=== PATIENT | male | born 1930 | race African-American/Black ===

== ENCOUNTER 2016-09-26 17:48 | Emergency (ER) | payer MEDICARE ==
[~2016-09-26 17:48] MED LIST: ACET500T68 PO; ALLO100T PO; AMLO10TA2 PO; ASPI81TA2 PO; BALS60OI TP; BISA-42 PO; CARV25TA2 PO; CARV3.122 PO; CLON0.5T3 PO; CLON1PAT3 TD; CLON2TAB2 PO; CLOP75TA PO; CLOP75TA27 PO; DOCU100C5 PO; FOLI0.8T3 PO; HYDR-2666 PO; HYDR-2672 PO; INSU100V31 SQ; KETO15CR TP; LEVO500T38 PO; LORA10TA3 PO; OMEP20CA9 PO; SEVE800T9 PO; VITS56.7 TP
[2016-09-26] MEDS ORDERED: IV NORMAL SALINE 1000ML BAG 500 ML IV ONE (18:30)
[2016-09-26 19:13] LABS: BASO # 0.1 x10^3/uL (0.0-0.2); BASO % 1 % (0-3); EOS % 6 % (0-3); HEMATOCRIT 39.6 % (39.0-53.0); HEMOGLOBIN 12.6 g/dL (13.0-17.5); LYMPH # 2.7 x10^3/uL (1.0-4.8); LYMPH % 36 % (24-48); MEAN CORPUSCULAR HEMOGLOBIN 28 pg (25-35); MEAN CORPUSCULAR HGB CONC 32 g/dL (31-37); MEAN CORPUSCULAR VOLUME 89 fL (79-100); MONO % 12 % (0-9); NEUT % 46 % (31-73); PLATELET COUNT 188 x10^3/uL (140-400); RED BLOOD COUNT 4.44 x10^6/uL (4.30-5.70); RED CELL DISTRIBUTION WIDTH 15.1 % (11.5-14.5); WHITE BLOOD COUNT 7.4 x10^3/uL (4.0-11.0)
[2016-09-26 19:22] LABS: CALCIUM 10.1 mg/dL (8.5-10.1); CREATININE 5.3 mg/dL (0.7-1.3); GFR 12.6
[2016-09-26 19:25] LABS: POTASSIUM 4.4 mmol/L (3.5-5.1)
--- NOTE | 2016-09-26 21:18 | PHYS DOC ---
Past Medical History Past Medical History: CHF, COPD, Diabetes-Type II, Hypertension, Renal Disease , Renal Failure Additional Past Medical Histor: on dialysis Past Surgical History: Appendectomy Additional Past Surgical Histo: BILATERAL FOOT SURGERY, GALL STONE REMOVAL; dialysis catheter Alcohol Use: None Drug Use: None Adult General Chief Complaint Chief Complaint: OTHER COMPLAINTS HPI HPI This is a 86-year-old male presents by EMS for concern for rapid heart rate. Per a home health nurse at home his vital signs revealed that he had an elevated heart rate in the 200 range and the health nurse took a pulse that was elevated as well in the 180s. Upon arrival EMS states patient's heart rate was in the 60s and he was not having any symptoms whatsoever. Upon arrival the patient denies any specific complaints. He denies any chest pain or palpitations and denies any nausea or vomiting. Patient is a renal failure patient and receives hemodialysis 3 times a week and has been compliant with this and had his last treatment yesterday without any complication. He denies any fever or chills. He denies feeling ill. Review of Systems Review of Systems Constitutional: Denies fever or chills [] Eyes: Denies change in visual acuity, redness, or eye pain [] HENT: Denies nasal congestion or sore throat [] Respiratory: Denies cough or shortness of breath [] Cardiovascular: No additional information not addressed in HPI [] GI: Denies abdominal pain, nausea, vomiting, bloody stools or diarrhea [] : Denies dysuria or hematuria [] Musculoskeletal: Denies back pain or joint pain [] Integument: Denies rash or skin lesions [] Neurologic: Denies headache, focal weakness or sensory changes [] Endocrine: Denies polyuria or polydipsia [] Current Medications Current Medications Current Medications Medications (Trade) Dose Ordered Sig/Arlene Start Time Stop Time Status Last Admin Dose Admin Sodium Chloride (Iv Sodium Chloride 0.9% 1000ml Bag) 500 ml @ 250 mls/hr 1X ONCE 09/26/16 18:30 09/26/16 20:29 DC 09/26/16 18:53 250 MLS/HR Allergies Allergies Allergies Coded Allergies Type Severity Reaction Last Updated Verified Penicillins Allergy Intermediate 08/16/15 Yes amoxicillin Allergy Intermediate 08/16/15 Yes codeine Allergy Intermediate 07/25/16 Yes erythromycin base Allergy Intermediate 08/16/15 Yes sulfamethoxazole Allergy Intermediate 5/14/16 Yes trimethoprim Allergy Intermediate 01/20/16 Yes I S O L A T I O N *CONTACT* Allergy Unknown 06/25/16 Yes Physical Exam Physical Exam Constitutional: Well developed, well nourished, no acute distress, non-toxic appearance. [] HENT: Normocephalic, atraumatic, bilateral external ears normal, oropharynx moist, no oral exudates, nose normal. [] Eyes: PERRLA, EOMI, conjunctiva normal, no discharge. [] Neck: Normal range of motion, no tenderness, supple, no stridor. [] Cardiovascular:Heart rate regular rhythm, no murmur [] Lungs & Thorax: Bilateral breath sounds clear to auscultation [] Abdomen: Bowel sounds normal, soft, no tenderness, no masses, no pulsatile masses. [] Skin: Warm, dry, no erythema, no rash. [] Back: No tenderness, no CVA tenderness. [] Extremities: No tenderness, no cyanosis, no clubbing, ROM intact, no edema. [] Neurologic: Alert and oriented X 3, normal motor function, normal sensory function, no focal deficits noted. [] Psychologic: Affect normal, judgement normal, mood normal. [] Current Patient Data Vital Signs Vital Signs Date Time Temp Pulse Resp B/P Pulse Ox O2 Delivery O2 Flow Rate FiO2 09/26/16 19:00 104 10 97/52 100 Nasal Cannula 2 09/26/16 17:54 98.5 98.5 Lab Values Laboratory Tests Test 09/26/16 19:00 White Blood Count 7.4x10^3/uL (4.0-11.0) Red Blood Count 4.44x10^6/uL (4.30-5.70) Hemoglobin 12.6g/dL (13.0-17.5) L Hematocrit 39.6% (39.0-53.0) Mean Corpuscular Volume 89fL (79-100) Mean Corpuscular Hemoglobin 28pg (25-35) Mean Corpuscular Hemoglobin Concent 32g/dL (31-37) Red Cell Distribution Width 15.1% (11.5-14.5) H Platelet Count 188x10^3/uL (140-400) Neutrophils (%) (Auto) 46% (31-73) Lymphocytes (%) (Auto) 36% (24-48) Monocytes (%) (Auto) 12% (0-9) H Eosinophils (%) (Auto) 6% (0-3) H Basophils (%) (Auto) 1% (0-3) Neutrophils # (Auto) 3.4x10^3uL (1.8-7.7) Lymphocytes # (Auto) 2.7x10^3/uL (1.0-4.8) Monocytes # (Auto) 0.9x10^3/uL (0.0-1.1) Eosinophils # (Auto) 0.4x10^3/uL (0.0-0.7) Basophils # (Auto) 0.1x10^3/uL (0.0-0.2) Sodium Level 136mmol/L (136-145) Potassium Level 4.4mmol/L (3.5-5.1) Chloride Level 99mmol/L (98-107) Carbon Dioxide Level 22mmol/L (21-32) Anion Gap 15 (6-14) H Blood Urea Nitrogen 29mg/dL (8-26) H Creatinine 5.3mg/dL (0.7-1.3) H Estimated GFR (Cockcroft-Gault) 12.6 Glucose Level 179mg/dL (70-99) H Calcium Level 10.1mg/dL (8.5-10.1) Troponin I Quantitative 0.041ng/mL (0.000-0.055) Laboratory Tests 09/26/16 19:00 Laboratory Tests 09/26/16 19:00 EKG EKG First EKG obtained at 1807 reveals a normal sinus rhythm with a leftward axis and a rate of 69 bpm is an approximate rate. Intervals are normal. There are no acute ischemic findings. Repeat EKG taken at 192 reveals again a normal sinus rhythm with a rate of 59 bpm. Intervals are normal. There are no acute ST findings. Radiology/Procedures Radiology/Procedures [] Course & Med Decision Making Course & Med Decision Making Pertinent Labs and Imaging studies reviewed. (See chart for details) This 86 yo male had a work up that was essentially unrevealing for any acute abnormality other chronic renal disease for which he can take his dialysis tomorrow as scheduled. She was observed in the department for approximately 3 hours and had multiple EKGs done that did not demonstrate any acute abnormality. His chronic enzymes are also negative. Counseled the patient at length that he should obtain his dialysis in the morning as scheduled and to follow closely with his primary care doctor and to return if he develops any worsening chest pain or shortness of breath or feels that his heart rate is elevated. He was discharged without incident. The patient was borderline hypotensive on arrival but responded well to a small fluid bolus and upon discharge his vital signs were near normal with a heart rate that stayed consistently in the 60's and a blood pressure in the 120's systolic. Dragon Disclaimer Dragon Disclaimer This electronic medical record was generated, in whole or in part, using a voice recognition dictation system. Departure Departure Impression: Primary Impression: Rapid heart rate Disposition: 01 HOME, SELF-CARE Condition: STABLE Referrals: NO PCP (PCP) Patient Instructions: Palpitations, [id number] Additional Instructions: Please follow up with your primary doctor in the next 2-3 days. Obtain your dialysis treatment in the AM as normal. Return to the ER if you develop any worsening of your symptoms or you develop any chest pain, shortness of breath, or lightheadedness. RUBEN CASTILLO DO Sep 26, 2016 21:19
[2016-09-26 21:45] VITALS: BP 110/60
--- NOTE | 2016-09-27 06:33 | EKG ---
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
== END 2016-09-26 22:00 | disposition home or self-care (01) ==
LOC: ER 17:48
DX: R00.0 Tachycardia, unspecified (principal); J44.9 Chronic obstructive pulmonary disease, unspecified; E11.22 Type 2 diabetes mellitus with diabetic chronic kidney disease; I13.0 Hypertensive heart and chronic kidney disease with heart failure and stage 1 through stage 4 chronic kidney disease, or unspecified chronic kidney disease; N18.9 Chronic kidney disease, unspecified; I50.9 Heart failure, unspecified; Z99.2 Dependence on renal dialysis; Z90.49 Acquired absence of other specified parts of digestive tract; Z88.1 Allergy status to other antibiotic agents; Z88.5 Allergy status to narcotic agent; Z88.0 Allergy status to penicillin; Z91.041 Radiographic dye allergy status
CPT/HCPCS: 36415; 80048; 84484; 85027; 93005; 96360; 96361; 99285; J7030

== ENCOUNTER 2018-10-21 04:36 | Inpatient (IN) | payer MEDICARE, OTHER ==
[~2018-10-21] VITALS: Ht 172.7 cm; Wt 90.5 kg
[2018-10-21] VITALS (18 sets, daily range): BP systolic 116–187; BP diastolic 53–114
[~2018-10-21 04:36] MED LIST changes: -AMLO10TA2 PO; +AMLO10TA8 PO; +ASPI-630 PO; -ASPI81TA2 PO; +CAPS60CR2 TP; +CARV3.1210 PO; -CARV3.122 PO; +CARV6.2511 PO; +CLON0.5T11 PO; -CLON0.5T3 PO; -CLON2TAB2 PO; +CLON2TAB9 PO; -CLOP75TA27 PO; +CLOP75TA57 PO; +DOCU100C28 PO; -DOCU100C5 PO; -HYDR-2666 PO; -HYDR-2672 PO; +HYDR-2761 PO; +HYDR-2769 PO; -KETO15CR TP; +KETO15CR2 TP; -LEVO500T38 PO; +LEVO500T59 PO; +POLY17PO29 PO
--- NOTE | 2018-10-21 05:22 | PHYS DOC ---
Past Medical History Past Medical History: CHF, COPD, Diabetes-Type II, Hypertension, Renal Disease , Renal Failure Additional Past Medical Histor: on dialysis Past Surgical History: Appendectomy Additional Past Surgical Histo: BILATERAL FOOT SURGERY, GALL STONE REMOVAL; dialysis catheter Alcohol Use: None Drug Use: None Adult General Chief Complaint Chief Complaint: DYSPNEA/RESPIRATOY DISTRESS HPI HPI Patient is a 88 year old -Ira[place] male with history of end-stage renal disease currently on dialysis, COPD and CHF who presents with creased LOC, and nightly respiratory failure hypoxia per EMS. Reportedly, the patient was found unresponsive by family members 15 minutes prior to ED arrival. Patient was hypoxic with an O2 saturation 70s and coarse wheezes present throughout lung samano. Patient was placed on nonrebreather given a breathing treatment with O2 saturations improved to low 90s on ED arrival. Patient has more alert, localizes pain and is alert oriented to person and place. History is limited based upon the patient's clinical condition.[] Review of Systems Review of Systems View symptoms as prescribed. All other review symptoms are negative. All other systems were reviewed and found to be within normal limits, except as documented in this note. Allergies Allergies Allergies Coded Allergies Type Severity Reaction Last Updated Verified Penicillins Allergy Intermediate 08/16/15 Yes amoxicillin Allergy Intermediate 08/16/15 Yes codeine Allergy Intermediate 07/25/16 Yes erythromycin base Allergy Intermediate 08/16/15 Yes sulfamethoxazole Allergy Intermediate 01/20/16 Yes trimethoprim Allergy Intermediate 01/20/16 Yes I S O L A T I O N *CONTACT* Allergy Unknown 06/25/16 Yes Physical Exam Physical Exam Constitutional: Decreased LOC, increased work of breathing, coarse breath sounds bilaterally.[] HENT: Normocephalic, atraumatic, bilateral external ears normal, oropharynx moist, nose normal. [] Eyes: PERRLA, EOMI [] Neck: Normal range of motion, no tenderness, supple, JVD. [] Cardiovascular: Regular rate and rhythm.[] Lungs & Thorax: Worsening respiratory and expiratory wheezes throughout lung samano, hemasplit catheter, left chest wall[] Abdomen: Bowel sounds normal, soft, no tenderness. [] Skin: Warm, dry. [] Extremities: No tenderness, no cyanosis, no clubbing, ROM intact, no edema. [] Neurologic: Somnolent, alerts to verbal and tactile, oriented to person place. [ ] EKG EKG EKG: Reviewed] Radiology/Procedures Radiology/Procedures [CXR: Cardiomegaly, pulmonary vascular congestion.] Course & Med Decision Making Course & Med Decision Making Pertinent Labs and Imaging studies reviewed. (See chart for details) [Patient appears to be in acute congestive heart failure secondary COPD exacerbation with volume overload likely contributing to his symptoms. Patient resp status improved with correction of hypoxia. Placed on Bipap shortly after ED arrival. Will admit to the hospitalist service for further evaluation anticipated dialysis session.] Dragon Disclaimer Dragon Disclaimer This electronic medical record was generated, in whole or in part, using a voice recognition dictation system. Departure Departure Impression: Primary Impression: Altered mental status Additional Impressions: Respiratory failure Acute exacerbation of CHF (congestive heart failure) COPD exacerbation End stage kidney disease Disposition: ADMITTED INPATIENT Admitting Physician: Fortunato Cantu Condition: CRITICAL Referrals: UNKNOWN PCP NAME (PCP) Problem Qualifiers ALDEN LANDIN DO Oct 21, 2018 05:22
[2018-10-21 05:23] LABS: BASO # 0.1 x10^3/uL (0.0-0.2); BASO % 1 % (0-3); EOS # 0.6 x10^3/uL (0.0-0.7); EOS % 7 % (0-3); HEMATOCRIT 34.7 % (39.0-53.0); HEMOGLOBIN 10.3 g/dL (13.0-17.5); LYMPH # 3.3 x10^3/uL (1.0-4.8); LYMPH % 43 % (24-48); MEAN CORPUSCULAR HEMOGLOBIN 28 pg (25-35); MEAN CORPUSCULAR HGB CONC 30 g/dL (31-37); MEAN CORPUSCULAR VOLUME 94 fL (79-100); MONO # 0.9 x10^3/uL (0.0-1.1); MONO % 12 % (0-9); NEUT # 2.8 x10^3uL (1.8-7.7); NEUT % 36 % (31-73); PLATELET COUNT 241 x10^3/uL (140-400); RED BLOOD COUNT 3.71 x10^6/uL (4.30-5.70); RED CELL DISTRIBUTION WIDTH 18.6 % (11.5-14.5); WHITE BLOOD COUNT 7.7 x10^3/uL (4.0-11.0)
[2018-10-21 05:50] LABS: ALBUMIN/GLOBULIN RATIO 0.6 (1.0-1.7); CALCIUM 10.4 mg/dL (8.5-10.1); CREATININE 8.4 mg/dL (0.7-1.3); GFR 7.4; TOTAL BILIRUBIN 0.3 mg/dL (0.2-1.0); TOTAL PROTEIN 7.8 g/dL (6.4-8.2)
[2018-10-21] MEDS ORDERED: ONDANSETRON PF 4 MG/2 ML VIAL. IV PRN (06:15)
[2018-10-21] MEDS ORDERED: INSU100I13 SQ (07:58)
[2018-10-21] MEDS ORDERED: AMLO10TA8 PO (07:59)
--- NOTE | 2018-10-21 09:00 | NUR ---
IP: Pt has a hx of + mrsa screens since 2008 with most recent on . Pt to be in contact precautions unitl there are 2 negative screens 7 days apart.
--- NOTE | 2018-10-21 09:40 | NUR ---
SS following for discharge planning. SS reviewed pt chart. Pt is from home with spouse and currently requiring oxygen. No discharge needs noted at this time. SS will continue to follow for pending discharge needs.
--- NOTE | 2018-10-21 10:58 | RAD ---
Portable chest, 10/21/2018: HISTORY: Shortness of breath Comparison is made to a study from 07/24/2016. The multilumen left dialysis type catheter remains in place extending into the right atrium. The heart is enlarged. There is calcific plaquing of the aorta. The pulmonary vascularity is congested with loss of vascular margination. There is mild interstitial prominence. A moderate left chest opacity has developed obscuring the hemidiaphragm. The appearance suggests infiltrate and possible pleural fluid. No right-sided pleural fluid is seen. IMPRESSION: 1. Vascular congestion with probable parahilar-perivascular pulmonary edema. 2. New left basilar opacity compatible with infiltrate and pleural fluid. Electronically signed by: Sunil Paulson MD (10/21/2018 10:56 AM) [facility]
--- NOTE | 2018-10-21 11:55 | PDOC2 ---
CONSULT Date of Consult Date of Consult DATE: 10/21/18 TIME: 11:50 Reason for Consult Reason for Consult: ESRD Referring Physician Referring Physician: LOUISE Identification/Chief Complaint Chief Complaint SOB AND UNRESPONSIVE Source Source: Chart review History of Present Illness Reason for Visit: THIS IS AN 88 YR OLD ESRD PT WITH NON COMPLIANCE. HE HAS NOT BEEN HIS HD TX SINCE LAST WEEK. WAS FOUND DOWN AND IN RESP FAILURE. LABS C/W ESRD. ESRD DUE TO DM II AND HTN AND NOTED TO HAVE HYPERKALEMIA. IMAGING C/W CHF Past Medical History Cardiovascular: CHF, HTN, Hyperlipidemia Pulmonary: COPD GI: Constipation Heme/Onc: Anemia NOS Psych: No pertinent hx Rheumatologic: No pertinent hx Infectious disease: No pertinent hx, Other Renal/: Chronic renal failure Endocrine: Diabetes, Hyperparathyroidism Past Surgical History Past Surgical History: Appendectomy, Tonsillectomy, Other Family History Family History: Coronary Artery Disease, Hearing Loss Social History ALCOHOL: none Drugs: None Lives: with Family Current Problem List Problem List Problems Medical Problems: (1) Acute exacerbation of CHF (congestive heart failure) Status: Acute (2) Altered mental status Status: Acute (3) COPD exacerbation Status: Acute (4) End stage kidney disease Status: Acute (5) Respiratory failure Status: Acute Current Medications Current Medications Current Medications Ondansetron HCl (Zofran) 4 mg PRN Q8HRS PRN IV NAUSEA/VOMITING; Start 10/21/18 at 06:15; Stop 10/22/18 at 06:14 Active Scripts Active Carvedilol (Carvedilol) 6.25 Mg Tablet 6.25 Mg PO BIDWMEALS 30 Days Reported Amlodipine Besylate 10 Mg Tablet 10 Mg PO DAILY Lantus Solostar (Insulin Glargine,Hum.rec.anlog) 100 Unit/1 Ml Insuln.pen 12 Unit SQ QHS Miralax (Polyethylene Glycol 3350) 17 Gm Powd.pack 1 Pkt PO DAILY Novolog (Insulin Aspart) 100 Unit/1 Ml Vial 6 Unit SQ TIDWMEALS Capsaicin 60 Gm Cream..g. 60 Gm TP PRN BID PRN Acetaminophen 500 Mg Tablet 500 Mg PO PRN BID PRN Dulcolax (Bisacodyl) 5 Mg Tablet.dr 5 Mg PO PRN DAILY PRN Ketoconazole 15 Gm Cream..g. 1 Rohit TP BID Clonazepam 0.5 Mg Tablet 0.25 Mg PO PRN BID PRN Allopurinol 100 Mg Tablet 1 Tab PO DAILY Clonidine Tts-3 (Clonidine) 1 Each Patch.tdwk 1 Patch TD WEEKLY Docusate Sodium 100 Mg Capsule 2 Cap PO DAILY Nephro-Woody Tablet (Folic Acid/Vitamin B Comp W-C) 0.8 Mg Tablet 1 Tab PO DAILY Aspirin 81 Mg Tab.chew 1 Tab PO DAILY Omeprazole 20 Mg Capsule. 1 Cap PO BID Allergies Allergies: Coded Allergies: Penicillins (Verified Allergy, Intermediate, 08/16/15) amoxicillin (Verified Allergy, Intermediate, 08/16/15) codeine (Verified Allergy, Intermediate, 07/25/16) pt states he is able to tolerate this medication with his codeine allergy. erythromycin base (Verified Allergy, Intermediate, 08/16/15) sulfamethoxazole (Verified Allergy, Intermediate, 01/20/16) trimethoprim (Verified Allergy, Intermediate, 01/20/16) I S O L A T I O N *CONTACT* (Verified Allergy, Unknown, 06/25/16) mrsa ROS Review of System UNABLE TO OBTAIN Physical Exam General: Cooperative, mild distress HEENT: Atraumatic, PERRLA, EOMI, Mucous membr. moist/pink Lungs: Other (DECREASED AT BASES) Heart: Regular rate, Normal S1, Normal S2 Abdomen: Normal bowel sounds, Soft Extremities: No clubbing, No cyanosis, Other (2+ EDEMA) Neuro: Other (CONFUSED) Psych/Mental Status: Other (CONFUSED) MUSCULOSKELETAL: No joint tenderness, No deformity Vitals VITALS Vital Signs Date Time Temp Pulse Resp B/P (MAP) Pulse Ox O2 Delivery O2 Flow Rate FiO2 10/21/18 11:00 68 11 177/89 (118) 100 BiPAP/CPAP 10/21/18 08:00 98.0 98.0 10/21/18 04:38 15.0 Labs Labs Laboratory Tests Test 10/21/18 05:02 10/21/18 09:28 White Blood Count 7.7 x10^3/uL (4.0-11.0) Red Blood Count 3.71 x10^6/uL (4.30-5.70) Hemoglobin 10.3 g/dL (13.0-17.5) Hematocrit 34.7 % (39.0-53.0) Mean Corpuscular Volume 94 fL (79-100) Mean Corpuscular Hemoglobin 28 pg (25-35) Mean Corpuscular Hemoglobin Concent 30 g/dL (31-37) Red Cell Distribution Width 18.6 % (11.5-14.5) Platelet Count 241 x10^3/uL (140-400) Neutrophils (%) (Auto) 36 % (31-73) Lymphocytes (%) (Auto) 43 % (24-48) Monocytes (%) (Auto) 12 % (0-9) Eosinophils (%) (Auto) 7 % (0-3) Basophils (%) (Auto) 1 % (0-3) Neutrophils # (Auto) 2.8 x10^3uL (1.8-7.7) Lymphocytes # (Auto) 3.3 x10^3/uL (1.0-4.8) Monocytes # (Auto) 0.9 x10^3/uL (0.0-1.1) Eosinophils # (Auto) 0.6 x10^3/uL (0.0-0.7) Basophils # (Auto) 0.1 x10^3/uL (0.0-0.2) Sodium Level 139 mmol/L (136-145) Potassium Level 6.0 mmol/L (3.5-5.1) Chloride Level 103 mmol/L (98-107) Carbon Dioxide Level 19 mmol/L (21-32) Anion Gap 17 (6-14) Blood Urea Nitrogen 64 mg/dL (8-26) Creatinine 8.4 mg/dL (0.7-1.3) Estimated GFR (Cockcroft-Gault) 7.4 BUN/Creatinine Ratio 8 (6-20) Glucose Level 177 mg/dL (70-99) Calcium Level 10.4 mg/dL (8.5-10.1) Total Bilirubin 0.3 mg/dL (0.2-1.0) Aspartate Amino Transf (AST/SGOT) 14 U/L (15-37) Alanine Aminotransferase (ALT/SGPT) 13 U/L (16-63) Alkaline Phosphatase 80 U/L (46-116) Troponin I Quantitative 0.090 ng/mL (0.000-0.055) 0.088 ng/mL (0.000-0.055) YV-Fox-K-Type Natriuretic Peptide 65834 pg/mL (0-449) Total Protein 7.8 g/dL (6.4-8.2) Albumin 3.0 g/dL (3.4-5.0) Albumin/Globulin Ratio 0.6 (1.0-1.7) Laboratory Tests Test 10/21/18 05:02 10/21/18 09:28 White Blood Count 7.7 x10^3/uL (4.0-11.0) Red Blood Count 3.71 x10^6/uL (4.30-5.70) Hemoglobin 10.3 g/dL (13.0-17.5) Hematocrit 34.7 % (39.0-53.0) Mean Corpuscular Volume 94 fL (79-100) Mean Corpuscular Hemoglobin 28 pg (25-35) Mean Corpuscular Hemoglobin Concent 30 g/dL (31-37) Red Cell Distribution Width 18.6 % (11.5-14.5) Platelet Count 241 x10^3/uL (140-400) Neutrophils (%) (Auto) 36 % (31-73) Lymphocytes (%) (Auto) 43 % (24-48) Monocytes (%) (Auto) 12 % (0-9) Eosinophils (%) (Auto) 7 % (0-3) Basophils (%) (Auto) 1 % (0-3) Neutrophils # (Auto) 2.8 x10^3uL (1.8-7.7) Lymphocytes # (Auto) 3.3 x10^3/uL (1.0-4.8) Monocytes # (Auto) 0.9 x10^3/uL (0.0-1.1) Eosinophils # (Auto) 0.6 x10^3/uL (0.0-0.7) Basophils # (Auto) 0.1 x10^3/uL (0.0-0.2) Sodium Level 139 mmol/L (136-145) Potassium Level 6.0 mmol/L (3.5-5.1) Chloride Level 103 mmol/L (98-107) Carbon Dioxide Level 19 mmol/L (21-32) Anion Gap 17 (6-14) Blood Urea Nitrogen 64 mg/dL (8-26) Creatinine 8.4 mg/dL (0.7-1.3) Estimated GFR (Cockcroft-Gault) 7.4 BUN/Creatinine Ratio 8 (6-20) Glucose Level 177 mg/dL (70-99) Calcium Level 10.4 mg/dL (8.5-10.1) Total Bilirubin 0.3 mg/dL (0.2-1.0) Aspartate Amino Transf (AST/SGOT) 14 U/L (15-37) Alanine Aminotransferase (ALT/SGPT) 13 U/L (16-63) Alkaline Phosphatase 80 U/L (46-116) Troponin I Quantitative 0.090 ng/mL (0.000-0.055) 0.088 ng/mL (0.000-0.055) UK-Cfo-M-Type Natriuretic Peptide 44607 pg/mL (0-449) Total Protein 7.8 g/dL (6.4-8.2) Albumin 3.0 g/dL (3.4-5.0) Albumin/Globulin Ratio 0.6 (1.0-1.7) Assessment/Plan Assessment/Plan IMP ACUTE ON CHRONIC D CHF ANEMIA NON COMPLIANCE DM II HTN ESRD MET ENCEPHALOPATHY PLAN BIPAP/O2 HD TODAY UF TO [facility]ONG ENC COMPLIANCE UPDATED FAMILY SHIVAM SMILEY MD Oct 21, 2018 11:55
[2018-10-21] MEDS ORDERED: DIALYSIS PATIENT. MC PRN ×2 (12:15)
[2018-10-21] MEDS ORDERED: IV NORMAL SALINE 1000ML BAG 1,000 ML IV PRN ×2 (12:15)
[2018-10-21] MEDS ORDERED: ALBUMIN HUMAN 25% 200 ML IV PRN (12:15)
[2018-10-21] MEDS ORDERED: BISACODYL 5 MG TABLET.DR. PO PRN (14:00)
[2018-10-21] MEDS ORDERED: CAPSAICIN 0.025% TOPICAL CREAM 60GM TUBE. TP PRN (14:00)
[2018-10-21] MEDS ORDERED: clonazePAM 0.5 MG TABLET PO PRN (14:00)
[2018-10-21] MEDS ORDERED: ACETAMINOPHEN 500 MG TABLET PO PRN (14:15)
--- NOTE | 2018-10-21 14:24 | HP ---
ADMIT DATE: 10/21/2018 CHIEF COMPLAINT: Shortness of breath and found down. HISTORY OF PRESENT ILLNESS: The patient is a pleasant 88-year-old male, well known to our service. He is noncompliant with his dialysis. He has not got dialysis for the past week. He was found down and in respiratory failure. He was brought to the ER where he was noted to have hyperkalemia and accelerated hypertension. Describes his symptoms as agonizing, has been worsening over the past few days. I have discussed the case with the ER physician. We are going to admit the patient and consult Nephrology and get him dialyzed. PAST MEDICAL HISTORY: Noncompliance, CHF, end-stage renal disease, COPD, hypertension, hyperlipidemia, foot surgeries bilaterally, cholecystectomy, dialysis catheter. ALLERGIES: PENICILLIN, AMOXICILLIN, CODEINE, ERYTHROMYCIN, SULFA AND TRIMETHOPRIM. FAMILY HISTORY: Hypertension. SOCIAL HISTORY: He does not drink, smoke or take drugs. MEDICATIONS: Reviewed. He is on 16 including clonidine, Coreg, amlodipine, aspirin, Tylenol, clonazepam, docusate, MiraLax, Prilosec, insulin, capsaicin, vitamins and ketaconazole. REVIEW OF SYSTEMS: GENERAL: No history of weight change, weakness or fevers. SKIN: No bruising, hair changes or rashes. EYES: No blurred, double or loss of vision. NOSE AND THROAT: No history of nosebleeds, hoarseness or sore throat. HEART: No history of palpitations, chest pain or shortness of breath on exertion. LUNGS: He complains of shortness of breath. GASTROINTESTINAL: Denies changes in appetite, nausea, vomiting, diarrhea or constipation. GENITOURINARY: No history of frequency, urgency, hesitancy or nocturia. NEUROLOGIC: Denies history of numbness, tingling, tremor or weakness. PSYCHIATRIC: No history of panic, anxiety or depression. ENDOCRINE: No history of heat or cold intolerance, polyuria or polydipsia. EXTREMITIES: Denies muscle weakness, joint pain, pain on walking or stiffness. PHYSICAL EXAMINATION: VITAL SIGNS: Temperature afebrile, pulse 98, respirations 18, blood pressure 160/78, it was as high as 186/114. GENERAL: He is alert, cooperative. He was seen on dialysis in his ICU bed on BiPAP. HEART: Normal S1, S2 with a soft S3. LUNGS: Bibasilar crackles. ABDOMEN: Soft, positive bowel sounds. EXTREMITIES: 1+ edema. SKIN: No rashes. PSYCHIATRIC: He is little depressed. ENDOCRINE: No thyromegaly. LYMPHATICS: No cervical nodes. HEMATOPOIETIC: No bruising. LABORATORY DATA: White count 7, hemoglobin 10.3, platelets 241. Electrolytes are pending. Creatinine is 8, BUN is 64. Troponin 0.09. BNP 27,161. ASSESSMENT AND PLAN: Volume overload secondary to noncompliance with dialysis, hyperkalemia, accelerated hypertension, anemia. The patient has been admitted to the ICU. We have got him on BiPAP. We have consulted Nephrology. We will continue dialysis, probably daily until we get him stabilized and then back to his every other day schedule. Frequent labs, home meds, PT, OT. I discussed the case with his family and the nurse. PROGNOSIS: Long-term guarded, especially if he does not quit missing dialysis. MONO WELLS DO DR: LEORA/chiquita JOB#: [id number] / [id number]
[2018-10-21] MEDS ORDERED: INSULIN LISPRO 300 UNITS/3 ML INSULN.PEN. SQ SCH (14:30)
[2018-10-21] MEDS: PANTOPRAZOLE 40 MG TABLET.DR. PO SCH (14:30)
[2018-10-21] MEDS: DOCUSATE SODIUM 100 MG CAPSULE. PO SCH (14:30)
[2018-10-21] MEDS: POLYETHYLENE GLYCOL 3350 17 GM PACKET. PO SCH (14:30)
[2018-10-21] MEDS: ALLOPURINOL 100 MG TABLET. PO SCH (14:30)
[2018-10-21] MEDS: amLODIPine BESYLATE 10 MG TABLET PO SCH (14:30)
[2018-10-21] MEDS: ASPIRIN CHEWABLE 81 MG TABLET. PO SCH (14:30)
[2018-10-21] MEDS: FOLIC/VIT B COMP W-C (RENAL) TABLET. PO SCH (14:30)
--- NOTE | 2018-10-21 14:31 | EKG ---
[facility] [address] [place] [address] Test Date: 2018-10-21 Test Time: 05:18:11 Pat Name: ADRIENNE PHILLIPS Department: Room: Gender: M [employer] Man: : 1930 Requested By: ALDEN LANDIN Order Number: [id number] Reading MD: Measurements Intervals [place] Rate: P: SC: QRS: QRSD: T: QT: QTc: Interpretive Statements
[2018-10-21] MEDS ORDERED: DEXTROSE 50% 25 GM / 50ML DISP.SYRIN. IV PRN (15:00)
[2018-10-21] MEDS: INSULIN LISPRO 300 UNITS/3 ML INSULN.PEN. SQ SCH (17:00)
[2018-10-21] MEDS: CARVEDILOL 6.25 MG TABLET. PO SCH (18:10)
[2018-10-21] MEDS ORDERED: DARBEPOETIN ALFA 60 MCG/0.3 ML DISP.SYRIN. SQ SCH (21:00)
[2018-10-21] MEDS: INSULIN GLARGINE 300 UNITS/3 ML INSULN.PEN. SQ SCH (21:00)
[2018-10-21] MEDS: KETOCONAZOLE 2% TOPICAL CREAM 15GM TUBE. TP SCH (21:00)
--- NOTE | 2018-10-21 23:35 | NUR ---
Patients SBP staying 160's, Clonidine patch ordered to start 10/28 but patient does not have a patch on now. Paged Dr Justice, notified of BP and plan to start Clonidine patch now--Dr Justice agreed to start Clonidine tonight and order received for Hydralazine 10MG IVP [id number] for SBP>170. See vital signs, orders.
[2018-10-21] MEDS ORDERED: hydrALAZINE 20 MG/ML VIAL. IVP PRN (23:45)
[2018-10-22] VITALS (14 sets, daily range): BP systolic 101–176; BP diastolic 39–98
[2018-10-22] MEDS ORDERED: cloNIDine TTS-3 1 PATCH PATCH.TDWK TD SCH
[2018-10-22 06:01] LABS: BASO % 1 % (0-3); EOS # 0.2 x10^3/uL (0.0-0.7); EOS % 6 % (0-3); HEMATOCRIT 33.5 % (39.0-53.0); HEMOGLOBIN 10.1 g/dL (13.0-17.5); LYMPH # 1.2 x10^3/uL (1.0-4.8); LYMPH % 31 % (24-48); MEAN CORPUSCULAR HEMOGLOBIN 28 pg (25-35); MEAN CORPUSCULAR HGB CONC 30 g/dL (31-37); MEAN CORPUSCULAR VOLUME 92 fL (79-100); MONO # 0.7 x10^3/uL (0.0-1.1); MONO % 18 % (0-9); NEUT # 1.7 x10^3uL (1.8-7.7); NEUT % 45 % (31-73); PLATELET COUNT 191 x10^3/uL (140-400); RED BLOOD COUNT 3.66 x10^6/uL (4.30-5.70); RED CELL DISTRIBUTION WIDTH 18.1 % (11.5-14.5); WHITE BLOOD COUNT 3.9 x10^3/uL (4.0-11.0)
[2018-10-22 06:13] LABS: ALBUMIN 2.7 g/dL (3.4-5.0); ALBUMIN/GLOBULIN RATIO 0.5 (1.0-1.7); CALCIUM 9.7 mg/dL (8.5-10.1); CREATININE 5.4 mg/dL (0.7-1.3); GFR 12.2; POTASSIUM 4.1 mmol/L (3.5-5.1); TOTAL BILIRUBIN 0.5 mg/dL (0.2-1.0); TOTAL PROTEIN 7.7 g/dL (6.4-8.2)
[2018-10-22 07:23] LABS: % ATYL 1 % (0-0); % BANDS 2 % (0-9); % BASOS 1 % (0-3); % EOS 11 % (0-5); % LYMPHS 25 % (24-48); % MONOS 19 % (0-10); % SEGS 41 % (35-66)
[2018-10-22 07:24] LABS: PLT ESTIMATE ADEQUATE (ADEQUATE)
[2018-10-22] MEDS: PANTOPRAZOLE 40 MG TABLET.DR. PO SCH (07:30)
[2018-10-22] MEDS: INSULIN LISPRO 300 UNITS/3 ML INSULN.PEN. SQ SCH ×3 (08:00→17:00)
[2018-10-22] MEDS: DOCUSATE SODIUM 100 MG CAPSULE. PO SCH (08:04)
[2018-10-22] MEDS: POLYETHYLENE GLYCOL 3350 17 GM PACKET. PO SCH (08:04)
[2018-10-22] MEDS: ASPIRIN CHEWABLE 81 MG TABLET. PO SCH (08:25)
[2018-10-22] MEDS: ALLOPURINOL 100 MG TABLET. PO SCH (08:25)
[2018-10-22] MEDS: FOLIC/VIT B COMP W-C (RENAL) TABLET. PO SCH (08:25)
[2018-10-22] MEDS: CARVEDILOL 6.25 MG TABLET. PO SCH ×2 (08:26→18:14)
[2018-10-22] MEDS: amLODIPine BESYLATE 10 MG TABLET PO SCH (08:26)
[2018-10-22] MEDS: KETOCONAZOLE 2% TOPICAL CREAM 15GM TUBE. TP SCH ×2 (08:26→21:05)
--- NOTE | 2018-10-22 10:09 | PDOC ---
PROGRESS NOTES Chief Complaint Chief Complaint CC: SOA, found down Acute respiratory failure, hypoxia ESRD on dialysis CHF COPD HTN HLD Noncompliance History of Present Illness History of Present Illness Pt is an 85 y/o male who presented to the ED with SOA and was found down. Significant PMHx or ESRD on dialysis, CHF, COPD, HTN. Apparently he missed dialysis last week. Today he was seen and examined in the ICU. His family was present. There is still some confusion. He was resting and in NAD. His family is worried about his cough and wheezing. I discussed the pt with his RN. Vitals Vitals Vital Signs Date Time Temp Pulse Resp B/P (MAP) Pulse Ox O2 Delivery O2 Flow Rate FiO2 10/22/18 09:00 81 18 176/84 (114) 96 Nasal Cannula 2.0 10/22/18 08:00 97.7 97.7 Physical Exam General: Cooperative, No acute distress Heart: Regular rate, Normal S1, Normal S2 Lungs: Wheezing (Mild wheezing and rhonchi), Other Abdomen: Normal bowel sounds, Soft, No tenderness Extremities: No clubbing, No cyanosis, Other (2+ EDEMA) Labs LABS Laboratory Tests Test 10/21/18 12:45 10/21/18 13:00 10/21/18 18:08 10/21/18 21:18 Troponin I Quantitative 0.139 ng/mL (0.000-0.055) Glucose (Fingerstick) 119 mg/dL (70-99) 96 mg/dL (70-99) 89 mg/dL (70-99) Test 10/22/18 05:30 White Blood Count 3.9 x10^3/uL (4.0-11.0) Red Blood Count 3.66 x10^6/uL (4.30-5.70) Hemoglobin 10.1 g/dL (13.0-17.5) Hematocrit 33.5 % (39.0-53.0) Mean Corpuscular Volume 92 fL (79-100) Mean Corpuscular Hemoglobin 28 pg (25-35) Mean Corpuscular Hemoglobin Concent 30 g/dL (31-37) Red Cell Distribution Width 18.1 % (11.5-14.5) Platelet Count 191 x10^3/uL (140-400) Neutrophils (%) (Auto) 45 % (31-73) Lymphocytes (%) (Auto) 31 % (24-48) Monocytes (%) (Auto) 18 % (0-9) Eosinophils (%) (Auto) 6 % (0-3) Basophils (%) (Auto) 1 % (0-3) Neutrophils # (Auto) 1.7 x10^3uL (1.8-7.7) Lymphocytes # (Auto) 1.2 x10^3/uL (1.0-4.8) Monocytes # (Auto) 0.7 x10^3/uL (0.0-1.1) Eosinophils # (Auto) 0.2 x10^3/uL (0.0-0.7) Basophils # (Auto) 0.0 x10^3/uL (0.0-0.2) Segmented Neutrophils % 41 % (35-66) Band Neutrophils % 2 % (0-9) Lymphocytes % 25 % (24-48) Atypical Lymphocytes % (Manual) 1 % (0-0) Monocytes % 19 % (0-10) Eosinophils % 11 % (0-5) Basophils % 1 % (0-3) Platelet Estimate Adequate (ADEQUATE) Large Platelets Occ Sodium Level 137 mmol/L (136-145) Potassium Level 4.1 mmol/L (3.5-5.1) Chloride Level 99 mmol/L (98-107) Carbon Dioxide Level 25 mmol/L (21-32) Anion Gap 13 (6-14) Blood Urea Nitrogen 36 mg/dL (8-26) Creatinine 5.4 mg/dL (0.7-1.3) Estimated GFR (Cockcroft-Gault) 12.2 BUN/Creatinine Ratio 7 (6-20) Glucose Level 81 mg/dL (70-99) Calcium Level 9.7 mg/dL (8.5-10.1) Total Bilirubin 0.5 mg/dL (0.2-1.0) Aspartate Amino Transf (AST/SGOT) 15 U/L (15-37) Alanine Aminotransferase (ALT/SGPT) 7 U/L (16-63) Alkaline Phosphatase 64 U/L (46-116) Total Protein 7.7 g/dL (6.4-8.2) Albumin 2.7 g/dL (3.4-5.0) Albumin/Globulin Ratio 0.5 (1.0-1.7) Review of Systems Review of Systems Gen: denies fever, chills Heart: denies CP, palpitations Lung: complains of SOA, cough, wheezing GI: denies N/V/D Assessment and Plan Assessmemt and Plan Assessment CC: SOA, found down Acute respiratory failure, hypoxia Acute exacerbation of CHF AMS ESRD on dialysis COPD HTN HLD Noncompliance Plan IV levaquin 250 QOD BiPAP and O2 HD Follow daily labs PT/OT Home meds Appreciate subspecialist input Comment Review of Relevant I have reviewed the following items genoveva (where applicable) has been applied. Labs Laboratory Tests Test 10/21/18 05:02 10/21/18 07:00 10/21/18 09:28 10/21/18 12:45 White Blood Count 7.7 x10^3/uL (4.0-11.0) Red Blood Count 3.71 x10^6/uL (4.30-5.70) Hemoglobin 10.3 g/dL (13.0-17.5) Hematocrit 34.7 % (39.0-53.0) Mean Corpuscular Volume 94 fL (79-100) Mean Corpuscular Hemoglobin 28 pg (25-35) Mean Corpuscular Hemoglobin Concent 30 g/dL (31-37) Red Cell Distribution Width 18.6 % (11.5-14.5) Platelet Count 241 x10^3/uL (140-400) Neutrophils (%) (Auto) 36 % (31-73) Lymphocytes (%) (Auto) 43 % (24-48) Monocytes (%) (Auto) 12 % (0-9) Eosinophils (%) (Auto) 7 % (0-3) Basophils (%) (Auto) 1 % (0-3) Neutrophils # (Auto) 2.8 x10^3uL (1.8-7.7) Lymphocytes # (Auto) 3.3 x10^3/uL (1.0-4.8) Monocytes # (Auto) 0.9 x10^3/uL (0.0-1.1) Eosinophils # (Auto) 0.6 x10^3/uL (0.0-0.7) Basophils # (Auto) 0.1 x10^3/uL (0.0-0.2) Sodium Level 139 mmol/L (136-145) Potassium Level 6.0 mmol/L (3.5-5.1) Chloride Level 103 mmol/L (98-107) Carbon Dioxide Level 19 mmol/L (21-32) Anion Gap 17 (6-14) Blood Urea Nitrogen 64 mg/dL (8-26) Creatinine 8.4 mg/dL (0.7-1.3) Estimated GFR (Cockcroft-Gault) 7.4 BUN/Creatinine Ratio 8 (6-20) Glucose Level 177 mg/dL (70-99) Calcium Level 10.4 mg/dL (8.5-10.1) Total Bilirubin 0.3 mg/dL (0.2-1.0) Aspartate Amino Transf (AST/SGOT) 14 U/L (15-37) Alanine Aminotransferase (ALT/SGPT) 13 U/L (16-63) Alkaline Phosphatase 80 U/L (46-116) Troponin I Quantitative 0.090 ng/mL (0.000-0.055) 0.088 ng/mL (0.000-0.055) 0.139 ng/mL (0.000-0.055) VN-Ioi-K-Type Natriuretic Peptide 41679 pg/mL (0-449) Total Protein 7.8 g/dL (6.4-8.2) Albumin 3.0 g/dL (3.4-5.0) Albumin/Globulin Ratio 0.6 (1.0-1.7) Nasal Screen MRSA (PCR) Negative (Negative) Test 10/21/18 13:00 10/21/18 18:08 10/21/18 21:18 10/22/18 05:30 Glucose (Fingerstick) 119 mg/dL (70-99) 96 mg/dL (70-99) 89 mg/dL (70-99) White Blood Count 3.9 x10^3/uL (4.0-11.0) Red Blood Count 3.66 x10^6/uL (4.30-5.70) Hemoglobin 10.1 g/dL (13.0-17.5) Hematocrit 33.5 % (39.0-53.0) Mean Corpuscular Volume 92 fL (79-100) Mean Corpuscular Hemoglobin 28 pg (25-35) Mean Corpuscular Hemoglobin Concent 30 g/dL (31-37) Red Cell Distribution Width 18.1 % (11.5-14.5) Platelet Count 191 x10^3/uL (140-400) Neutrophils (%) (Auto) 45 % (31-73) Lymphocytes (%) (Auto) 31 % (24-48) Monocytes (%) (Auto) 18 % (0-9) Eosinophils (%) (Auto) 6 % (0-3) Basophils (%) (Auto) 1 % (0-3) Neutrophils # (Auto) 1.7 x10^3uL (1.8-7.7) Lymphocytes # (Auto) 1.2 x10^3/uL (1.0-4.8) Monocytes # (Auto) 0.7 x10^3/uL (0.0-1.1) Eosinophils # (Auto) 0.2 x10^3/uL (0.0-0.7) Basophils # (Auto) 0.0 x10^3/uL (0.0-0.2) Segmented Neutrophils % 41 % (35-66) Band Neutrophils % 2 % (0-9) Lymphocytes % 25 % (24-48) Atypical Lymphocytes % (Manual) 1 % (0-0) Monocytes % 19 % (0-10) Eosinophils % 11 % (0-5) Basophils % 1 % (0-3) Platelet Estimate Adequate (ADEQUATE) Large Platelets Occ Sodium Level 137 mmol/L (136-145) Potassium Level 4.1 mmol/L (3.5-5.1) Chloride Level 99 mmol/L (98-107) Carbon Dioxide Level 25 mmol/L (21-32) Anion Gap 13 (6-14) Blood Urea Nitrogen 36 mg/dL (8-26) Creatinine 5.4 mg/dL (0.7-1.3) Estimated GFR (Cockcroft-Gault) 12.2 BUN/Creatinine Ratio 7 (6-20) Glucose Level 81 mg/dL (70-99) Calcium Level 9.7 mg/dL (8.5-10.1) Total Bilirubin 0.5 mg/dL (0.2-1.0) Aspartate Amino Transf (AST/SGOT) 15 U/L (15-37) Alanine Aminotransferase (ALT/SGPT) 7 U/L (16-63) Alkaline Phosphatase 64 U/L (46-116) Total Protein 7.7 g/dL (6.4-8.2) Albumin 2.7 g/dL (3.4-5.0) Albumin/Globulin Ratio 0.5 (1.0-1.7) Laboratory Tests Test 10/21/18 12:45 10/21/18 13:00 10/21/18 18:08 10/21/18 21:18 Troponin I Quantitative 0.139 ng/mL (0.000-0.055) Glucose (Fingerstick) 119 mg/dL (70-99) 96 mg/dL (70-99) 89 mg/dL (70-99) Test 10/22/18 05:30 White Blood Count 3.9 x10^3/uL (4.0-11.0) Red Blood Count 3.66 x10^6/uL (4.30-5.70) Hemoglobin 10.1 g/dL (13.0-17.5) Hematocrit 33.5 % (39.0-53.0) Mean Corpuscular Volume 92 fL (79-100) Mean Corpuscular Hemoglobin 28 pg (25-35) Mean Corpuscular Hemoglobin Concent 30 g/dL (31-37) Red Cell Distribution Width 18.1 % (11.5-14.5) Platelet Count 191 x10^3/uL (140-400) Neutrophils (%) (Auto) 45 % (31-73) Lymphocytes (%) (Auto) 31 % (24-48) Monocytes (%) (Auto) 18 % (0-9) Eosinophils (%) (Auto) 6 % (0-3) Basophils (%) (Auto) 1 % (0-3) Neutrophils # (Auto) 1.7 x10^3uL (1.8-7.7) Lymphocytes # (Auto) 1.2 x10^3/uL (1.0-4.8) Monocytes # (Auto) 0.7 x10^3/uL (0.0-1.1) Eosinophils # (Auto) 0.2 x10^3/uL (0.0-0.7) Basophils # (Auto) 0.0 x10^3/uL (0.0-0.2) Segmented Neutrophils % 41 % (35-66) Band Neutrophils % 2 % (0-9) Lymphocytes % 25 % (24-48) Atypical Lymphocytes % (Manual) 1 % (0-0) Monocytes % 19 % (0-10) Eosinophils % 11 % (0-5) Basophils % 1 % (0-3) Platelet Estimate Adequate (ADEQUATE) Large Platelets Occ Sodium Level 137 mmol/L (136-145) Potassium Level 4.1 mmol/L (3.5-5.1) Chloride Level 99 mmol/L (98-107) Carbon Dioxide Level 25 mmol/L (21-32) Anion Gap 13 (6-14) Blood Urea Nitrogen 36 mg/dL (8-26) Creatinine 5.4 mg/dL (0.7-1.3) Estimated GFR (Cockcroft-Gault) 12.2 BUN/Creatinine Ratio 7 (6-20) Glucose Level 81 mg/dL (70-99) Calcium Level 9.7 mg/dL (8.5-10.1) Total Bilirubin 0.5 mg/dL (0.2-1.0) Aspartate Amino Transf (AST/SGOT) 15 U/L (15-37) Alanine Aminotransferase (ALT/SGPT) 7 U/L (16-63) Alkaline Phosphatase 64 U/L (46-116) Total Protein 7.7 g/dL (6.4-8.2) Albumin 2.7 g/dL (3.4-5.0) Albumin/Globulin Ratio 0.5 (1.0-1.7) Microbiology 10/21/18 Blood Culture - Preliminary, Resulted NO GROWTH AFTER 1 DAY Medications Current Medications Ondansetron HCl (Zofran) 4 mg PRN Q8HRS PRN IV NAUSEA/VOMITING; Start 10/21/18 at 06:15; Stop 10/22/18 at 06:14; Status DC Darbepoetin Jatinedr (Aranesp) 60 mcg WEEKLYHS SQ Last administered on 10/21/18at 21 :12; Start 10/21/18 at 21:00 Sodium Chloride 1,000 ml @ 1,000 mls/hr Q1H PRN IV hypotension; Start 10/21/18 at 12:15; Stop 10/21/18 at 18:14; Status DC Albumin Human 200 ml @ 200 mls/hr 1X PRN PRN IV Hypotension; Start 10/21/18 at 12:15; Stop 10/21/18 at 18:14; Status DC Sodium Chloride 1,000 ml @ 400 mls/hr Q2H30M PRN IV PATENCY; Start 10/21/18 at 12:15; Stop 10/22/18 at 00:14; Status DC Info (PHARMACY MONITORING -- do not chart) 1 each PRN DAILY PRN MC SEE COMMENTS ; Start 10/21/18 at 12:15; Status UNV Info (PHARMACY MONITORING -- do not chart) 1 each PRN DAILY PRN MC SEE COMMENTS ; Start 10/21/18 at 12:15 Allopurinol (Zyloprim) 100 mg DAILY PO Last administered on 10/22/18 08:25; Start 10/21/18 at 14:30 Amlodipine Besylate (Norvasc) 10 mg DAILY PO Last administered on 10/22/18 08: 26; Start 10/21/18 at 14:30 Aspirin (Children'S Aspirin) 81 mg DAILY PO Last administered on 10/22/18at 08: 25; Start 10/21/18 at 14:30 Bisacodyl (Dulcolax Tab) 5 mg PRN DAILY PRN PO CONSTIPATION; Start 10/21/18 at 14:00 Carvedilol (Coreg) 6.25 mg BIDWMEALS PO Last administered on 10/22/18at 08:26; Start 10/21/18 at 17:00 Clonazepam (KlonoPIN) 0.25 mg PRN BID PRN PO ANXIETY / AGITATION; Start at 14:00 Clonidine HCl (Catapres Tts-3) 1 patch WEEKLY TD Last administered on at 23:41; Start 10/22/18 at 00:00 Docusate Sodium (Colace) 200 mg DAILY PO ; Start 10/21/18 at 14:30 Vitamin B Complex/ Vitamin C (Gianna-Woody) 1 tab DAILY PO Last administered on at 08:25; Start 10/21/18 at 14:30 Insulin Glargine (Lantus) 12 units QHS SQ ; Start 10/21/18 at 21:00 Ketoconazole (Nizoral 2% Topical) 1 rohit BID TP Last administered on 10/22/18at 08:26; Start 10/21/18 at 21:00 Acetaminophen (Tylenol) 500 mg PRN BID PRN PO MILD PAIN / TEMP Last administered on 10/22/18at 06:02; Start 10/21/18 at 14:15 Capsaicin (Zostrix) 1 rohit PRN BID PRN TP PAIN; Start 10/21/18 at 14:00 Insulin Human Lispro (HumaLOG) 6 units TIDWMEALS SQ ; Start 10/21/18 at 14:30; Stop 10/21/18 at 15:00; Status DC Pantoprazole Sodium (Protonix) 40 mg DAILYAC PO ; Start 10/21/18 at 14:30 Polyethylene Glycol (miraLAX PACKET) 17 gm DAILY PO ; Start 10/21/18 at 14:30 Insulin Human Lispro (HumaLOG) 0-5 UNITS TIDWMEALS SQ ; Start 10/21/18 at 17:00 Dextrose (Dextrose 50%-Water Syringe) 12.5 gm PRN Q15MIN PRN IV SEE COMMENTS; Start 10/21/18 at 15:00 Hydralazine HCl (Apresoline Inj) 10 mg PRN Q6HRS PRN IVP ELEVATED BP, SEE COMMENTS; Start 10/21/18 at 23:45 Active Scripts Active Carvedilol (Carvedilol) 6.25 Mg Tablet 6.25 Mg PO BIDWMEALS 30 Days Reported Amlodipine Besylate 10 Mg Tablet 10 Mg PO DAILY Lantus Solostar (Insulin Glargine,Hum.rec.anlog) 100 Unit/1 Ml Insuln.pen 12 Unit SQ QHS Miralax (Polyethylene Glycol 3350) 17 Gm Powd.pack 1 Pkt PO DAILY Novolog (Insulin Aspart) 100 Unit/1 Ml Vial 6 Unit SQ TIDWMEALS Capsaicin 60 Gm Cream..g. 60 Gm TP PRN BID PRN Acetaminophen 500 Mg Tablet 500 Mg PO PRN BID PRN Dulcolax (Bisacodyl) 5 Mg Tablet.dr 5 Mg PO PRN DAILY PRN Ketoconazole 15 Gm Cream..g. 1 Rohit TP BID Clonazepam 0.5 Mg Tablet 0.25 Mg PO PRN BID PRN Allopurinol 100 Mg Tablet 1 Tab PO DAILY Clonidine Tts-3 (Clonidine) 1 Each Patch.tdwk 1 Patch TD WEEKLY Docusate Sodium 100 Mg Capsule 2 Cap PO DAILY Nephro-Woody Tablet (Folic Acid/Vitamin B Comp W-C) 0.8 Mg Tablet 1 Tab PO DAILY Aspirin 81 Mg Tab.chew 1 Tab PO DAILY Omeprazole 20 Mg Capsule.dr 1 Cap PO BID Vitals/I & O Vital Sign - Last 24 Hours 10/21/18 10/21/18 10/21/18 10/21/18 11:00 11:57 12:00 12:00 Temp 98.1 98.1 Pulse 68 68 Resp 11 15 B/P (MAP) 177/89 (118) 168/78 (108) Pulse Ox 100 96 100 O2 Delivery BiPAP/CPAP BiPAP/CPAP Bi-pap BiPAP/CPAP 10/21/18 10/21/18 10/21/18 10/21/18 13:00 14:00 15:00 15:29 Pulse 80 88 91 Resp 19 20 24 B/P (MAP) 167/92 (117) 147/90 (109) 161/101 (121) Pulse Ox 100 100 100 96 O2 Delivery BiPAP/CPAP BiPAP/CPAP BiPAP/CPAP BiPAP/CPAP 10/21/18 10/21/18 10/21/18 10/21/18 16:00 16:00 17:00 17:14 Temp 97.8 97.8 Pulse 92 88 Resp 14 20 B/P (MAP) 149/88 (108) 162/82 (108) Pulse Ox 100 99 95 O2 Delivery BiPAP/CPAP Bi-pap BiPAP/CPAP BiPAP/CPAP 10/21/18 10/21/18 10/21/18 10/21/18 18:00 18:10 19:00 20:00 Pulse 90 88 88 Resp 16 B/P (MAP) 167/74 (105) 155/85 145/75 (98) Pulse Ox 97 99 O2 Delivery Nasal Cannula Nasal Cannula Nasal Cannula O2 Flow Rate 4.0 4.0 2.0 10/21/18 10/21/18 10/21/18 10/21/18 20:00 20:00 21:00 22:00 Temp 98.1 98.1 Pulse 84 82 80 Resp 20 16 20 B/P (MAP) 145/70 (95) 150/77 (101) 161/92 (115) Pulse Ox 96 98 100 O2 Delivery Nasal Cannula Nasal Cannula Nasal Cannula O2 Flow Rate 2.0 2.0 2.0 2.0 10/21/18 10/21/18 10/21/18 10/21/18 23:00 23:59 23:59 23:59 Temp 97.7 97.7 Pulse 84 74 Resp 20 16 B/P (MAP) 167/77 (107) 116/53 (74) Pulse Ox 100 96 O2 Delivery Nasal Cannula Nasal Cannula Nasal Cannula O2 Flow Rate 2.0 2.0 2.0 2.0 10/22/18 10/22/18 10/22/18 10/22/18 01:00 02:00 03:00 04:00 Pulse 77 96 81 Resp 16 16 24 B/P (MAP) 133/90 (104) 127/96 (106) 142/68 (92) Pulse Ox 100 100 96 O2 Delivery Nasal Cannula Nasal Cannula Nasal Cannula Nasal Cannula O2 Flow Rate 2.0 2.0 2.0 2.0 10/22/18 10/22/18 10/22/18 10/22/18 04:00 04:00 05:00 06:00 Temp 97.7 97.7 Pulse 82 93 78 Resp 31 27 27 B/P (MAP) 122/67 (85) 119/52 (74) 167/81 (109) Pulse Ox 100 100 100 O2 Delivery Nasal Cannula Nasal Cannula Nasal Cannula O2 Flow Rate 2.0 2.0 2.0 2.0 10/22/18 10/22/18 10/22/18 10/22/18 07:00 08:00 08:00 08:26 Temp 97.7 97.7 Pulse 74 74 76 Resp 15 13 B/P (MAP) 112/71 (85) 170/85 (113) 170/85 Pulse Ox 100 99 O2 Delivery Nasal Cannula Nasal Cannula Nasal Cannula O2 Flow Rate 2.0 2.0 2.0 10/22/18 10/22/18 08:26 09:00 Pulse 76 81 Resp 18 B/P (MAP) 170/85 176/84 (114) Pulse Ox 96 O2 Delivery Nasal Cannula O2 Flow Rate 2.0 Intake and Output 10/21/18 10/21/18 10/22/18 15:00 23:00 07:00 Intake Total 0 ml 30 ml 60 ml Output Total 0 ml 3000 ml 0 ml Balance 0 ml -2970 ml 60 ml CASTYOGESH,NIAL K III DO Oct 22, 2018 10:09
--- NOTE | 2018-10-22 12:12 | PDOC ---
Renal-Progress Notes Subjective Notes Notes MORE AWAKE History of Present Illness Hx of present illness BETTER Vitals Vitals Vital Signs Date Time Temp Pulse Resp B/P (MAP) Pulse Ox O2 Delivery O2 Flow Rate FiO2 10/22/18 11:00 79 16 108/58 (75) 100 Nasal Cannula 2.0 10/22/18 08:00 97.7 97.7 Weight Weight [ ] I.O. Intake and Output Intake and Output 10/22/18 06:59 Intake Total 90 ml Output Total 3000 ml Balance -2910 ml Intake Oral 90 ml Output Urine Total 0 ml Other 3000 ml Labs Labs Laboratory Tests Test 10/21/18 12:45 10/21/18 13:00 10/21/18 18:08 10/21/18 21:18 Troponin I Quantitative 0.139 ng/mL (0.000-0.055) Glucose (Fingerstick) 119 mg/dL (70-99) 96 mg/dL (70-99) 89 mg/dL (70-99) Test 10/22/18 05:30 White Blood Count 3.9 x10^3/uL (4.0-11.0) Red Blood Count 3.66 x10^6/uL (4.30-5.70) Hemoglobin 10.1 g/dL (13.0-17.5) Hematocrit 33.5 % (39.0-53.0) Mean Corpuscular Volume 92 fL (79-100) Mean Corpuscular Hemoglobin 28 pg (25-35) Mean Corpuscular Hemoglobin Concent 30 g/dL (31-37) Red Cell Distribution Width 18.1 % (11.5-14.5) Platelet Count 191 x10^3/uL (140-400) Neutrophils (%) (Auto) 45 % (31-73) Lymphocytes (%) (Auto) 31 % (24-48) Monocytes (%) (Auto) 18 % (0-9) Eosinophils (%) (Auto) 6 % (0-3) Basophils (%) (Auto) 1 % (0-3) Neutrophils # (Auto) 1.7 x10^3uL (1.8-7.7) Lymphocytes # (Auto) 1.2 x10^3/uL (1.0-4.8) Monocytes # (Auto) 0.7 x10^3/uL (0.0-1.1) Eosinophils # (Auto) 0.2 x10^3/uL (0.0-0.7) Basophils # (Auto) 0.0 x10^3/uL (0.0-0.2) Segmented Neutrophils % 41 % (35-66) Band Neutrophils % 2 % (0-9) Lymphocytes % 25 % (24-48) Atypical Lymphocytes % (Manual) 1 % (0-0) Monocytes % 19 % (0-10) Eosinophils % 11 % (0-5) Basophils % 1 % (0-3) Platelet Estimate Adequate (ADEQUATE) Large Platelets Occ Sodium Level 137 mmol/L (136-145) Potassium Level 4.1 mmol/L (3.5-5.1) Chloride Level 99 mmol/L (98-107) Carbon Dioxide Level 25 mmol/L (21-32) Anion Gap 13 (6-14) Blood Urea Nitrogen 36 mg/dL (8-26) Creatinine 5.4 mg/dL (0.7-1.3) Estimated GFR (Cockcroft-Gault) 12.2 BUN/Creatinine Ratio 7 (6-20) Glucose Level 81 mg/dL (70-99) Calcium Level 9.7 mg/dL (8.5-10.1) Total Bilirubin 0.5 mg/dL (0.2-1.0) Aspartate Amino Transf (AST/SGOT) 15 U/L (15-37) Alanine Aminotransferase (ALT/SGPT) 7 U/L (16-63) Alkaline Phosphatase 64 U/L (46-116) Total Protein 7.7 g/dL (6.4-8.2) Albumin 2.7 g/dL (3.4-5.0) Albumin/Globulin Ratio 0.5 (1.0-1.7) Micro Micro Microbiology 10/21/18 Blood Culture - Preliminary, Resulted NO GROWTH AFTER 1 DAY Review of Systems Constitutional: yes: alert, oriented Ears/Nose/Throat: Yes: no symptom reported Eyes: Yes: no symptom reported Pulmonary: Yes dyspnea Cardiovascular: Yes no symptom reported Gastrointestional: Yes: no symptom reported Genitourinary: Yes: no symptom reported Musculoskeletal: Yes: no symptom reported Skin: Yes no symptom reported Psychiatric/Neurological: Yes: no symptom reported Endocrine: Yes: no symptom reported Physical Exam General Appearance: no apparent distress Skin: warm Respiratory: decreased breath sounds Heart: S1S2, RRR Abdomen: soft, bowel sounds present Genitourinary: bladder flat Extremities: pulses present Neurology: alert, oriented Assessment Assessment IMP HYPERKALEMIA ANEMIA DM II HTN ESRD DIASTOLIC CHF ACUTE RESP FAILURE PLAN ENC COMPLIANCE HD TOMORROW UPDATED FAMILY AT BEDSIDE SHIVAM SMILEY MD Oct 22, 2018 12:12
--- NOTE | 2018-10-22 14:53 | NUR ---
Patient arrived on floor from ICU, settled into room and oriented to call light, staff, etc. No family present at this time.
[2018-10-22] MEDS ORDERED: ALBUTEROL SULFATE 2.5 MG/3 ML NEBU. NEB PRN (16:00)
[2018-10-22] MEDS: INSULIN GLARGINE 300 UNITS/3 ML INSULN.PEN. SQ SCH (21:05)
[2018-10-23 03:00] VITALS: BP 103/32
[2018-10-23 04:42] LABS: BASO % 1 % (0-3); EOS # 0.1 x10^3/uL (0.0-0.7); EOS % 3 % (0-3); HEMATOCRIT 28.6 % (39.0-53.0); HEMOGLOBIN 8.9 g/dL (13.0-17.5); LYMPH # 0.9 x10^3/uL (1.0-4.8); LYMPH % 31 % (24-48); MEAN CORPUSCULAR HEMOGLOBIN 28 pg (25-35); MEAN CORPUSCULAR HGB CONC 31 g/dL (31-37); MEAN CORPUSCULAR VOLUME 91 fL (79-100); MONO # 0.6 x10^3/uL (0.0-1.1); MONO % 19 % (0-9); NEUT # 1.4 x10^3uL (1.8-7.7); NEUT % 47 % (31-73); PLATELET COUNT 179 x10^3/uL (140-400); RED BLOOD COUNT 3.15 x10^6/uL (4.30-5.70); RED CELL DISTRIBUTION WIDTH 17.6 % (11.5-14.5)
[2018-10-23 04:55] LABS: ALBUMIN 2.4 g/dL (3.4-5.0); ALBUMIN/GLOBULIN RATIO 0.5 (1.0-1.7); CALCIUM 9.3 mg/dL (8.5-10.1); CREATININE 6.5 mg/dL (0.7-1.3); GFR 9.9; POTASSIUM 4.3 mmol/L (3.5-5.1); TOTAL BILIRUBIN 0.4 mg/dL (0.2-1.0); TOTAL PROTEIN 6.9 g/dL (6.4-8.2)
[2018-10-23 07:00] VITALS: BP 116/96
[2018-10-23] MEDS: CARVEDILOL 6.25 MG TABLET. PO SCH ×2 (08:00→17:00)
[2018-10-23] MEDS: INSULIN LISPRO 300 UNITS/3 ML INSULN.PEN. SQ SCH ×3 (08:00→17:00)
[2018-10-23] MEDS ORDERED: ONDANSETRON ODT 4 MG TAB.RAPDIS. PO PRN (08:30)
[2018-10-23] MEDS ORDERED: ONDANSETRON PF 4 MG/2 ML VIAL. IV PRN (08:30)
[2018-10-23] MEDS: FOLIC/VIT B COMP W-C (RENAL) TABLET. PO SCH (08:57)
[2018-10-23] MEDS: KETOCONAZOLE 2% TOPICAL CREAM 15GM TUBE. TP SCH ×2 (08:59→20:52)
[2018-10-23] MEDS: PANTOPRAZOLE 40 MG TABLET.DR. PO SCH (08:59)
[2018-10-23] MEDS: ALLOPURINOL 100 MG TABLET. PO SCH (08:59)
[2018-10-23] MEDS: ASPIRIN CHEWABLE 81 MG TABLET. PO SCH (08:59)
[2018-10-23] MEDS: POLYETHYLENE GLYCOL 3350 17 GM PACKET. PO SCH (08:59)
[2018-10-23] MEDS: amLODIPine BESYLATE 10 MG TABLET PO SCH (09:00)
[2018-10-23] MEDS: DOCUSATE SODIUM 100 MG CAPSULE. PO SCH (09:00)
[2018-10-23] MEDS ORDERED: LEVO500T59 PO (10:11)
[2018-10-23] MEDS ORDERED: ALBU2.5V8 INH (10:11)
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
[2018-10-23 10:55] VITALS: BP 124/79
--- NOTE | 2018-10-23 10:59 | NUR ---
SW following for discharge planning. Discussed with RN, pt is from home with . Pt is having dialysis today. PT/OT signed off on pt yesterday (10/22/18) although RN believes pt may need therapy so likely will reorder. SW will continue to follow.
--- NOTE | 2018-10-23 12:41 | PDOC ---
Renal-Progress Notes Subjective Notes Notes MUCH BETTER, NO SOB History of Present Illness Hx of present illness STABLE Vitals Vitals Vital Signs Date Time Temp Pulse Resp B/P (MAP) Pulse Ox O2 Delivery O2 Flow Rate FiO2 10/23/18 10:55 97.8 63 18 124/79 (94) 100 Room Air 97.8 10/23/18 08:00 2.0 Weight Weight [ ] I.O. Intake and Output Intake and Output 10/23/18 07:00 Intake Total 480 ml Output Total 0 ml Balance 480 ml Intake Oral 480 ml Output Urine Total 0 ml Labs Labs Laboratory Tests Test 10/22/18 12:48 10/22/18 18:08 10/22/18 20:19 10/23/18 04:23 Glucose (Fingerstick) 146 mg/dL (70-99) 147 mg/dL (70-99) 136 mg/dL (70-99) White Blood Count 3.0 x10^3/uL (4.0-11.0) Red Blood Count 3.15 x10^6/uL (4.30-5.70) Hemoglobin 8.9 g/dL (13.0-17.5) Hematocrit 28.6 % (39.0-53.0) Mean Corpuscular Volume 91 fL (79-100) Mean Corpuscular Hemoglobin 28 pg (25-35) Mean Corpuscular Hemoglobin Concent 31 g/dL (31-37) Red Cell Distribution Width 17.6 % (11.5-14.5) Platelet Count 179 x10^3/uL (140-400) Neutrophils (%) (Auto) 47 % (31-73) Lymphocytes (%) (Auto) 31 % (24-48) Monocytes (%) (Auto) 19 % (0-9) Eosinophils (%) (Auto) 3 % (0-3) Basophils (%) (Auto) 1 % (0-3) Neutrophils # (Auto) 1.4 x10^3uL (1.8-7.7) Lymphocytes # (Auto) 0.9 x10^3/uL (1.0-4.8) Monocytes # (Auto) 0.6 x10^3/uL (0.0-1.1) Eosinophils # (Auto) 0.1 x10^3/uL (0.0-0.7) Basophils # (Auto) 0.0 x10^3/uL (0.0-0.2) Sodium Level 138 mmol/L (136-145) Potassium Level 4.3 mmol/L (3.5-5.1) Chloride Level 99 mmol/L (98-107) Carbon Dioxide Level 27 mmol/L (21-32) Anion Gap 12 (6-14) Blood Urea Nitrogen 46 mg/dL (8-26) Creatinine 6.5 mg/dL (0.7-1.3) Estimated GFR (Cockcroft-Gault) 9.9 BUN/Creatinine Ratio 7 (6-20) Glucose Level 92 mg/dL (70-99) Calcium Level 9.3 mg/dL (8.5-10.1) Total Bilirubin 0.4 mg/dL (0.2-1.0) Aspartate Amino Transf (AST/SGOT) 7 U/L (15-37) Alanine Aminotransferase (ALT/SGPT) 7 U/L (16-63) Alkaline Phosphatase 54 U/L (46-116) Total Protein 6.9 g/dL (6.4-8.2) Albumin 2.4 g/dL (3.4-5.0) Albumin/Globulin Ratio 0.5 (1.0-1.7) Test 10/23/18 06:49 10/23/18 11:24 Glucose (Fingerstick) 73 mg/dL (70-99) 135 mg/dL (70-99) Micro Micro Microbiology 10/21/18 Blood Culture - Preliminary, Resulted NO GROWTH AFTER 2 DAYS Review of Systems Constitutional: yes: alert, oriented Ears/Nose/Throat: Yes: no symptom reported Eyes: Yes: no symptom reported Pulmonary: Yes dyspnea Cardiovascular: Yes no symptom reported Gastrointestional: Yes: no symptom reported Genitourinary: Yes: no symptom reported Musculoskeletal: Yes: no symptom reported Skin: Yes no symptom reported Psychiatric/Neurological: Yes: no symptom reported Endocrine: Yes: no symptom reported Physical Exam General Appearance: no apparent distress Skin: warm Respiratory: decreased breath sounds Heart: S1S2, RRR Abdomen: soft, bowel sounds present Genitourinary: bladder flat Extremities: pulses present Neurology: alert, oriented Assessment Assessment IMP HYPERKALEMIA ANEMIA DM II HTN ESRD DIASTOLIC CHF ACUTE RESP FAILURE PLAN ENC COMPLIANCE HD TODAY UF TO DW SHIVAM SMILEY MD Oct 23, 2018 12:41
[2018-10-23] MEDS ORDERED: IV NORMAL SALINE 1000ML BAG 1,000 ML IV PRN ×2 (14:43)
[2018-10-23] MEDS ORDERED: DIALYSIS PATIENT. MC PRN (14:45)
--- NOTE | 2018-10-23 15:57 | NUR ---
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 Pt was resistant to having wound assessed, removed foam and cleansed wound. Sylvie-wound is becoming macerated from sweat, painted with Betadine and left PATO. Pt is in bilateral heelmedix boots for offloading. Pt has P500 bed ordered but is not yet on it. Educated pt on PU prevention and family on wound care POC. Betadine left at bedside, recommend to paint daily. Pt refused to turn, stating he had just been turned and has no wounds. EUNICE Majano stated she had just cleansed him up and applied Calazime for protection, no wounds noted on buttocks/coccyx. Family and RN educated to watch for stable eschar to turn unstable. WC will continue to follow for possible changes.
--- NOTE | 2018-10-23 16:44 | NUR ---
Morning blood pressure medications and stool softener non-administered r/t pt. having dialysis today and pt. unable to swallow stool softener whole.
--- NOTE | 2018-10-23 17:23 | NUR ---
1700 medications non-administered r/t pt. off unit for dialysis.
[2018-10-23 19:00] VITALS: BP 141/78
--- NOTE | 2018-10-23 19:21 | NUR ---
This nurse spoke with Dr. Justice prior to pt going to dialysis. Dr. Justice talked with about DC. This nurse understood DrDeysi was planning to DC today but after speaking with decided to have pt get dialysis and then DC tomorrow 10/24/18.
[2018-10-23] MEDS: LACTOBACILLUS RHAMNOSUS GG 1 CAPSULE. PO SCH (20:34)
[2018-10-23] MEDS: INSULIN GLARGINE 300 UNITS/3 ML INSULN.PEN. SQ SCH (20:53)
--- NOTE | 2018-10-23 21:04 | NUR ---
pt's son refused Lantus dose tonight, he ststed he will bottom down if he get his lantus tonight with 124 blood sugar.
[2018-10-23 23:00] VITALS: BP 147/66
[2018-10-24 03:00] VITALS: BP 134/57
[2018-10-24 04:16] LABS: BASO % 1 % (0-3); EOS # 0.2 x10^3/uL (0.0-0.7); EOS % 6 % (0-3); HEMATOCRIT 28.2 % (39.0-53.0); HEMOGLOBIN 8.6 g/dL (13.0-17.5); LYMPH # 1.3 x10^3/uL (1.0-4.8); LYMPH % 36 % (24-48); MEAN CORPUSCULAR HEMOGLOBIN 28 pg (25-35); MEAN CORPUSCULAR HGB CONC 31 g/dL (31-37); MEAN CORPUSCULAR VOLUME 92 fL (79-100); MONO # 0.7 x10^3/uL (0.0-1.1); MONO % 19 % (0-9); NEUT # 1.3 x10^3uL (1.8-7.7); NEUT % 38 % (31-73); PLATELET COUNT 197 x10^3/uL (140-400); RED BLOOD COUNT 3.08 x10^6/uL (4.30-5.70); RED CELL DISTRIBUTION WIDTH 17.5 % (11.5-14.5); WHITE BLOOD COUNT 3.5 x10^3/uL (4.0-11.0)
[2018-10-24 05:20] LABS: ALBUMIN/GLOBULIN RATIO 0.4 (1.0-1.7); CALCIUM 9.1 mg/dL (8.5-10.1); CREATININE 3.9 mg/dL (0.7-1.3); GFR 17.8; POTASSIUM 4.6 mmol/L (3.5-5.1); TOTAL BILIRUBIN 0.3 mg/dL (0.2-1.0); TOTAL PROTEIN 6.7 g/dL (6.4-8.2)
[2018-10-24] MEDS: PANTOPRAZOLE 40 MG TABLET.DR. PO SCH (06:19)
[2018-10-24 07:00] VITALS: BP 118/28
[2018-10-24] MEDS: INSULIN LISPRO 300 UNITS/3 ML INSULN.PEN. SQ SCH ×3 (08:00→17:07)
[2018-10-24] MEDS: POLYETHYLENE GLYCOL 3350 17 GM PACKET. PO SCH (08:20)
[2018-10-24] MEDS: FOLIC/VIT B COMP W-C (RENAL) TABLET. PO SCH (08:20)
[2018-10-24] MEDS: KETOCONAZOLE 2% TOPICAL CREAM 15GM TUBE. TP SCH (08:20)
[2018-10-24] MEDS: LACTOBACILLUS RHAMNOSUS GG 1 CAPSULE. PO SCH (08:20)
[2018-10-24] MEDS: ALLOPURINOL 100 MG TABLET. PO SCH (08:20)
[2018-10-24] MEDS: ASPIRIN CHEWABLE 81 MG TABLET. PO SCH (08:20)
--- NOTE | 2018-10-24 08:25 | DISCH ---
DISCHARGE WITH HOME HEALTH DISCHARGE INFORMATION: Discharge Date: Oct 24, 2018 Final Diagnosis: Problems Medical Problems: (1) Acute exacerbation of CHF (congestive heart failure) Status: Acute (2) Altered mental status Status: Acute (3) COPD exacerbation Status: Acute (4) End stage kidney disease Status: Acute (5) Respiratory failure Status: Acute Condition on Discharge: Stable CODE STATUS: Code Status: Full HOME HEALTH: Face to Face: I certify this patient is under my care and that I, or a nurse practitioner or physician's recruitment and outreach assistant working with me, had a face to face encounter that meets the physician face to face encounter requirements with this patient on []. Medical Complications: Dementia Detention For: Medication Management Physical Therapy For: Evalulation/Treatment Occupational Therapy For: Evaluation/Treatment Speech Language Pathology For: Swallow Cognition Home Health Aide For: Self-care ABSENCE MANAGEMENT CONSULTANT For: Community Resources Pt Meets Homebound Status: Poor cognition POST DISCHARGE ORDERS: Activity Instructions for Disc: Bedrest today Weight Bearing Status after Di: Non weight bearing Wound/Incision Care: No wound care needed CHECKS AFTER DISCHARGE: Checks after discharge: Check blood sugar, ac/hs FOLLOW-UP: Follow up with: PCP as scheduled or in 4 weeks TREATMENT/EQUIPMENT ORDERS: Adaptive Equipment Issued: None Discharge Respiratory Equipmen: Oxygen CERTIFICATION STATEMENT: Certification Statement: Certification Statement: Based on the above finding, I certify that this patient is confined to the home and needs intermittent assisted care, physical therapy and/or speech therapy, or continues to need occupational therapy.~ This patient is under my care, and I have initiated the establishment of the plan of care.~ This patient will be followed by myself or a community physician who will periodically review the plan of care. Home Meds Active Scripts Albuterol Sulfate (PROAIR HFA INHALER) 8.5 Gm Hfa.aer.ad, 1 PUFF INH PRN Q6HRS PRN for SHORTNESS OF BREATH for 14 Days, INHALER 0 Refills Prov:NAYLA ESCALANTE MD 10/23/18 Levofloxacin (LEVAQUIN) 500 Mg Tablet, 0.5 TAB PO QODAY for bronchitis, #7 TAB Prov:NAYLA ESCALANTE MD 10/23/18 Carvedilol (CARVEDILOL ) 6.25 Mg Tablet, 6.25 MG PO BIDWMEALS for 30 Days, # 60 TAB Prov:JOSEPH ALEJANDRO MD 12/03/17 Reported Medications Amlodipine Besylate (AMLODIPINE BESYLATE) 10 Mg Tablet, 10 MG PO DAILY for Hypertension, TAB 10/21/18 Insulin Glargine,Hum.rec.anlog (LANTUS SOLOSTAR) 100 Unit/1 Ml Insuln.pen, 12 UNIT SQ QHS for hyperglycemia, #15 ML 3 Refills 10/21/18 Polyethylene Glycol 3350 (MIRALAX) 17 Gm Powd.pack, 1 PKT PO DAILY, PKT 12/01/17 Insulin Aspart (NOVOLOG) 100 Unit/1 Ml Vial, 6 UNIT SQ TIDWMEALS, VIAL 12/01/17 Capsaicin (CAPSAICIN) 60 Gm Cream..g., 60 GM TP PRN BID PRN for PAIN, EACH 12/01/17 Acetaminophen (ACETAMINOPHEN) 500 Mg Tablet, 500 MG PO PRN BID PRN for PAIN, TAB 12/01/17 Bisacodyl (DULCOLAX) 5 Mg Tablet.dr, 5 MG PO PRN DAILY PRN for CONSTIPATION, TAB 0 Refills 12/26/15 Ketoconazole (KETOCONAZOLE) 15 Gm Cream..g., 1 ZOIE TP BID, #60 GM 1 Refill 12/26/15 Clonazepam (CLONAZEPAM) 0.5 Mg Tablet, 0.25 MG PO PRN BID PRN for ANXIETY / AGITATION, #60 TAB 1 Refill 12/26/15 Allopurinol (ALLOPURINOL) 100 Mg Tablet, 1 TAB PO DAILY, #30 TAB 5 Refills 12/26/15 Clonidine (CLONIDINE TTS-3) 1 Each Patch.tdwk, 1 PATCH TD WEEKLY, PATCH 01/03/15 Docusate Sodium (DOCUSATE SODIUM) 100 Mg Capsule, 2 CAP PO DAILY, #30 CAP 01/02/15 Folic Acid/Vitamin B Comp W-C (NEPHRO-KATIE TABLET) 0.8 Mg Tablet, 1 TAB PO DAILY , #30 TAB 5 Refills 01/02/15 Aspirin (ASPIRIN) 81 Mg Tab.chew, 1 TAB PO DAILY, #30 TAB 3 Refills 01/02/15 Omeprazole (OMEPRAZOLE) 20 Mg Capsule.dr, 1 CAP PO BID, #30 CAP 5 Refills 01/02/15 NAYLA ESCALANTE MD Oct 24, 2018 08:25
[2018-10-24] MEDS ORDERED: CARV3.12 PO (08:45)
[2018-10-24] MEDS: DOCUSATE SODIUM 100 MG CAPSULE. PO SCH (09:00)
--- NOTE | 2018-10-24 09:55 | PDOC3 ---
Discharge Summary Visit Information Date of Admission: Oct 21, 2018 Date of Discharge: Oct 24, 2018 Admitting Diagnosis Comment: Acute respiratory failure, hypoxia ESRD on dialysis - missed session/s CHF, now better/compensated COPD stable PNA - febrile low grade HTN, accelerated POA, resolved HLD Noncompliance GEriatric FUll code BEd bound Final Diagnosis Problems Medical Problems: (1) Acute exacerbation of CHF (congestive heart failure) Status: Acute (2) Altered mental status Status: Acute (3) COPD exacerbation Status: Acute (4) End stage kidney disease Status: Acute (5) Respiratory failure Status: Acute Brief Hospital Course Allergies Allergies Coded Allergies Type Severity Reaction Last Updated Verified Penicillins Allergy Intermediate 08/16/15 Yes amoxicillin Allergy Intermediate 08/16/15 Yes codeine Allergy Intermediate 07/25/16 Yes erythromycin base Allergy Intermediate 08/16/15 Yes sulfamethoxazole Allergy Intermediate 01/20/16 Yes trimethoprim Allergy Intermediate 01/20/16 Yes I S O L A T I O N *CONTACT* Allergy Unknown 06/25/16 Yes Vital Signs Vital Signs Date Time Temp Pulse Resp B/P (MAP) Pulse Ox O2 Delivery O2 Flow Rate FiO2 10/24/18 07:00 98.0 82 18 118/28 (58) 97 Nasal Cannula 2.0 98.0 Lab Results Laboratory Tests Test 10/22/18 12:48 10/22/18 18:08 10/22/18 20:19 10/23/18 04:23 Glucose (Fingerstick) 146 mg/dL (70-99) 147 mg/dL (70-99) 136 mg/dL (70-99) White Blood Count 3.0 x10^3/uL (4.0-11.0) Red Blood Count 3.15 x10^6/uL (4.30-5.70) Hemoglobin 8.9 g/dL (13.0-17.5) Hematocrit 28.6 % (39.0-53.0) Mean Corpuscular Volume 91 fL (79-100) Mean Corpuscular Hemoglobin 28 pg (25-35) Mean Corpuscular Hemoglobin Concent 31 g/dL (31-37) Red Cell Distribution Width 17.6 % (11.5-14.5) Platelet Count 179 x10^3/uL (140-400) Neutrophils (%) (Auto) 47 % (31-73) Lymphocytes (%) (Auto) 31 % (24-48) Monocytes (%) (Auto) 19 % (0-9) Eosinophils (%) (Auto) 3 % (0-3) Basophils (%) (Auto) 1 % (0-3) Neutrophils # (Auto) 1.4 x10^3uL (1.8-7.7) Lymphocytes # (Auto) 0.9 x10^3/uL (1.0-4.8) Monocytes # (Auto) 0.6 x10^3/uL (0.0-1.1) Eosinophils # (Auto) 0.1 x10^3/uL (0.0-0.7) Basophils # (Auto) 0.0 x10^3/uL (0.0-0.2) Sodium Level 138 mmol/L (136-145) Potassium Level 4.3 mmol/L (3.5-5.1) Chloride Level 99 mmol/L (98-107) Carbon Dioxide Level 27 mmol/L (21-32) Anion Gap 12 (6-14) Blood Urea Nitrogen 46 mg/dL (8-26) Creatinine 6.5 mg/dL (0.7-1.3) Estimated GFR (Cockcroft-Gault) 9.9 BUN/Creatinine Ratio 7 (6-20) Glucose Level 92 mg/dL (70-99) Calcium Level 9.3 mg/dL (8.5-10.1) Total Bilirubin 0.4 mg/dL (0.2-1.0) Aspartate Amino Transf (AST/SGOT) 7 U/L (15-37) Alanine Aminotransferase (ALT/SGPT) 7 U/L (16-63) Alkaline Phosphatase 54 U/L (46-116) Total Protein 6.9 g/dL (6.4-8.2) Albumin 2.4 g/dL (3.4-5.0) Albumin/Globulin Ratio 0.5 (1.0-1.7) Test 10/23/18 06:49 10/23/18 11:24 10/23/18 20:52 10/24/18 03:55 Glucose (Fingerstick) 73 mg/dL (70-99) 135 mg/dL (70-99) 127 mg/dL (70-99) White Blood Count 3.5 x10^3/uL (4.0-11.0) Red Blood Count 3.08 x10^6/uL (4.30-5.70) Hemoglobin 8.6 g/dL (13.0-17.5) Hematocrit 28.2 % (39.0-53.0) Mean Corpuscular Volume 92 fL (79-100) Mean Corpuscular Hemoglobin 28 pg (25-35) Mean Corpuscular Hemoglobin Concent 31 g/dL (31-37) Red Cell Distribution Width 17.5 % (11.5-14.5) Platelet Count 197 x10^3/uL (140-400) Neutrophils (%) (Auto) 38 % (31-73) Lymphocytes (%) (Auto) 36 % (24-48) Monocytes (%) (Auto) 19 % (0-9) Eosinophils (%) (Auto) 6 % (0-3) Basophils (%) (Auto) 1 % (0-3) Neutrophils # (Auto) 1.3 x10^3uL (1.8-7.7) Lymphocytes # (Auto) 1.3 x10^3/uL (1.0-4.8) Monocytes # (Auto) 0.7 x10^3/uL (0.0-1.1) Eosinophils # (Auto) 0.2 x10^3/uL (0.0-0.7) Basophils # (Auto) 0.0 x10^3/uL (0.0-0.2) Sodium Level 133 mmol/L (136-145) Potassium Level 4.6 mmol/L (3.5-5.1) Chloride Level 99 mmol/L (98-107) Carbon Dioxide Level 24 mmol/L (21-32) Anion Gap 10 (6-14) Blood Urea Nitrogen 24 mg/dL (8-26) Creatinine 3.9 mg/dL (0.7-1.3) Estimated GFR (Cockcroft-Gault) 17.8 BUN/Creatinine Ratio 6 (6-20) Glucose Level 177 mg/dL (70-99) Calcium Level 9.1 mg/dL (8.5-10.1) Total Bilirubin 0.3 mg/dL (0.2-1.0) Aspartate Amino Transf (AST/SGOT) 23 U/L (15-37) Alanine Aminotransferase (ALT/SGPT) 10 U/L (16-63) Alkaline Phosphatase 62 U/L (46-116) Total Protein 6.7 g/dL (6.4-8.2) Albumin 2.0 g/dL (3.4-5.0) Albumin/Globulin Ratio 0.4 (1.0-1.7) Test 10/24/18 07:17 Glucose (Fingerstick) 135 mg/dL (70-99) Laboratory Tests Test 10/23/18 11:24 10/23/18 20:52 10/24/18 03:55 10/24/18 07:17 Glucose (Fingerstick) 135 mg/dL (70-99) 127 mg/dL (70-99) 135 mg/dL (70-99) White Blood Count 3.5 x10^3/uL (4.0-11.0) Red Blood Count 3.08 x10^6/uL (4.30-5.70) Hemoglobin 8.6 g/dL (13.0-17.5) Hematocrit 28.2 % (39.0-53.0) Mean Corpuscular Volume 92 fL (79-100) Mean Corpuscular Hemoglobin 28 pg (25-35) Mean Corpuscular Hemoglobin Concent 31 g/dL (31-37) Red Cell Distribution Width 17.5 % (11.5-14.5) Platelet Count 197 x10^3/uL (140-400) Neutrophils (%) (Auto) 38 % (31-73) Lymphocytes (%) (Auto) 36 % (24-48) Monocytes (%) (Auto) 19 % (0-9) Eosinophils (%) (Auto) 6 % (0-3) Basophils (%) (Auto) 1 % (0-3) Neutrophils # (Auto) 1.3 x10^3uL (1.8-7.7) Lymphocytes # (Auto) 1.3 x10^3/uL (1.0-4.8) Monocytes # (Auto) 0.7 x10^3/uL (0.0-1.1) Eosinophils # (Auto) 0.2 x10^3/uL (0.0-0.7) Basophils # (Auto) 0.0 x10^3/uL (0.0-0.2) Sodium Level 133 mmol/L (136-145) Potassium Level 4.6 mmol/L (3.5-5.1) Chloride Level 99 mmol/L (98-107) Carbon Dioxide Level 24 mmol/L (21-32) Anion Gap 10 (6-14) Blood Urea Nitrogen 24 mg/dL (8-26) Creatinine 3.9 mg/dL (0.7-1.3) Estimated GFR (Cockcroft-Gault) 17.8 BUN/Creatinine Ratio 6 (6-20) Glucose Level 177 mg/dL (70-99) Calcium Level 9.1 mg/dL (8.5-10.1) Total Bilirubin 0.3 mg/dL (0.2-1.0) Aspartate Amino Transf (AST/SGOT) 23 U/L (15-37) Alanine Aminotransferase (ALT/SGPT) 10 U/L (16-63) Alkaline Phosphatase 62 U/L (46-116) Total Protein 6.7 g/dL (6.4-8.2) Albumin 2.0 g/dL (3.4-5.0) Albumin/Globulin Ratio 0.4 (1.0-1.7) Brief Hospital Course Mr. 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 Got better with dialysis. No change in home meds. Some pneumonia evident on x-ray so we have started every other day Levaquin. Back to normal baseline. Full code. Discussed with son at bedside and Nirali over the phone. Blood pressure on the low side was getting Catapres transdermal we have stopped that. Blood sugar can be low. On 12 units daily at bedtime which they know how to hold if he is running not too high. Hence (on paper) I have stopped 12 units daily at bedtime and clonidine patch and Coreg 6.25 twice a day and Norvasc 10. But heavy education counseling instructions done to resume insulin or blood pressure medication if blood pressure and blood sugar is too high at home. Discharge disposition home with home health Full code Consults performed pulmonary, renal Procedures performed none Discharge Information Condition at Discharge: Improved, Stable Disposition/Orders: D/C to Home w/ HH Scheduled Allopurinol (Allopurinol) 100 Mg Tablet, 1 TAB PO DAILY, #30 Ref 5 (Reported) Entered as Reported by: Odette Berkowitz on 12/26/15 0234 Last Action: Continued on 10/21/181350 by NIAL CASTLE Amlodipine Besylate (Amlodipine Besylate) 10 Mg Tablet, 10 MG PO DAILY for Hypertension, (Reported) Entered as Reported by: ALEXX GUNDERSON RN on 10/21/18 0759 Last Action: Continued on 10/21/181350 by NIAL CASTLE Aspirin (Aspirin) 81 Mg Tab.chew, 1 TAB PO DAILY, #30 Ref 3 (Reported) Entered as Reported by: LUANA WILLIAMSON on 01/02/15 163 Last Action: Continued on 10/21/181350 by NIAL CASTLE Carvedilol (Carvedilol ) 6.25 Mg Tablet, 6.25 MG PO BIDWMEALS for 30 Days, #60 Prescribed by: JOSEPH ALEJANDRO MD on 12/03/17 1020 Last Action: Continued on 10/21/181350 by NIAL CASTLE Carvedilol (Coreg ) 3.125 Mg Tablet, 3.125 MG PO BIDWMEALS for CARDIAC for 30 Days, #60 Prescribed by: NAYLA ESCALANTE on 10/24/18 0845 Clonidine (Clonidine Tts-3) 1 Each Patch.tdwk, 1 PATCH TD WEEKLY, (Reported) Entered as Reported by: RADHA STOCKTON on 01/03/15 023 Last Action: Continued on 10/21/181350 by NIAL CASTLE Docusate Sodium (Docusate Sodium) 100 Mg Capsule, 2 CAP PO DAILY, #30 (Reported) Entered as Reported by: LUANA WILLIAMSON on 01/02/15 163 Last Action: Continued on 10/21/181350 by NIAL CASTLE Folic Acid/Vitamin B Comp W-C (Nephro-Woody Tablet) 0.8 Mg Tablet, 1 TAB PO DAILY , #30 Ref 5 (Reported) Entered as Reported by: LUANA WILLIAMSON on 01/02/151634 Last Action: Continued on 10/21/181350 by NIAL CASTLE Insulin Aspart (Novolog) 100 Unit/1 Ml Vial, 6 UNIT SQ TIDWMEALS, (Reported) Entered as Reported by: MASON CLARKE on 12/01/17 0229 Last Action: Converted on 10/21/181350 by NIAL CASTLE Insulin Glargine,Hum.rec.anlog (Lantus Solostar) 100 Unit/1 Ml Insuln.pen, 12 UNIT SQ QHS for hyperglycemia, #15 Ref 3 (Reported) Entered as Reported by: ALEXX GUNDERSON RN on 10/21/18 0758 Last Action: Continued on 10/21/181350 by NIAL CASTYOGESH Ketoconazole (Ketoconazole) 15 Gm Cream..g., 1 ZOIE TP BID, #60 Ref 1 (Reported) Entered as Reported by: Odette Berkowitz on 12/26/15 0245 Last Action: Continued on 10/21/181350 by NIAL PRISCILLA Levofloxacin (Levaquin) 500 Mg Tablet, 0.5 TAB PO QODAY for bronchitis, #7 Prescribed by: NAYLA ESCALANTE on 10/23/18 1011 Omeprazole (Omeprazole) 20 Mg Capsule.dr, 1 CAP PO BID, #30 Ref 5 (Reported) Entered as Reported by: LUANA WILLIAMSON on 01/02/15 1635 Last Action: Converted on 10/21/181350 by NIAL CASTLE Polyethylene Glycol 3350 (Miralax) 17 Gm Powd.pack, 1 PKT PO DAILY, (Reported) Entered as Reported by: MASON CLARKE on 12/01/17228 Last Action: Converted on 10/21/181350 by NIATeressa WELLS Scheduled PRN Acetaminophen (Acetaminophen) 500 Mg Tablet, 500 MG PO PRN BID PRN for PAIN, ( Reported) Entered as Reported by: MASON CLARKE on 12/01/17228 Last Action: Converted on 10/21/181350 by NIAL CASTYOGESH Albuterol Sulfate (Proair Hfa Inhaler) 8.5 Gm Hfa.aer.ad, 1 PUFF INH PRN Q6HRS PRN for SHORTNESS OF BREATH for 14 Days, Ref 0 Prescribed by: NAYLA ESCALANTE on 10/23/18 1011 Bisacodyl (Dulcolax) 5 Mg Tablet.dr, 5 MG PO PRN DAILY PRN for CONSTIPATION, Ref 0 (Reported) Entered as Reported by: Odette Berkowitz on 12/26/15 0300 Last Action: Continued on 10/21/181350 by NIAL CASTYOGESH Capsaicin (Capsaicin) 60 Gm Cream..g., 60 GM TP PRN BID PRN for PAIN, (Reported) Entered as Reported by: MASON CLARKE on 12/01/17 0229 Last Action: Converted on 10/21/181350 by MONO WELLS Clonazepam (Clonazepam) 0.5 Mg Tablet, 0.25 MG PO PRN BID PRN for ANXIETY / AGITATION, #60 Ref 1 (Reported) Entered as Reported by: Odette Berkowitz on 12/26/15 0238 Last Action: Continued on 10/21/181350 by NAYLA BROOKS MD Oct 24, 2018 09:55
[2018-10-24 11:00] VITALS: BP 92/47
--- NOTE | 2018-10-24 11:55 | PDOC ---
Renal-Progress Notes Subjective Notes Notes NO SOB History of Present Illness Hx of present illness BETTER Vitals Vitals Vital Signs Date Time Temp Pulse Resp B/P (MAP) Pulse Ox O2 Delivery O2 Flow Rate FiO2 10/24/18 11:00 98.9 82 18 92/47 (62) 98 Nasal Cannula 2.0 98.9 Weight Weight [ ] I.O. Intake and Output Intake and Output 10/24/18 07:00 Intake Total 50 ml Balance 50 ml Intake Oral 50 ml Labs Labs Laboratory Tests Test 10/23/18 20:52 10/24/18 03:55 10/24/18 07:17 Glucose (Fingerstick) 127 mg/dL (70-99) 135 mg/dL (70-99) White Blood Count 3.5 x10^3/uL (4.0-11.0) Red Blood Count 3.08 x10^6/uL (4.30-5.70) Hemoglobin 8.6 g/dL (13.0-17.5) Hematocrit 28.2 % (39.0-53.0) Mean Corpuscular Volume 92 fL (79-100) Mean Corpuscular Hemoglobin 28 pg (25-35) Mean Corpuscular Hemoglobin Concent 31 g/dL (31-37) Red Cell Distribution Width 17.5 % (11.5-14.5) Platelet Count 197 x10^3/uL (140-400) Neutrophils (%) (Auto) 38 % (31-73) Lymphocytes (%) (Auto) 36 % (24-48) Monocytes (%) (Auto) 19 % (0-9) Eosinophils (%) (Auto) 6 % (0-3) Basophils (%) (Auto) 1 % (0-3) Neutrophils # (Auto) 1.3 x10^3uL (1.8-7.7) Lymphocytes # (Auto) 1.3 x10^3/uL (1.0-4.8) Monocytes # (Auto) 0.7 x10^3/uL (0.0-1.1) Eosinophils # (Auto) 0.2 x10^3/uL (0.0-0.7) Basophils # (Auto) 0.0 x10^3/uL (0.0-0.2) Sodium Level 133 mmol/L (136-145) Potassium Level 4.6 mmol/L (3.5-5.1) Chloride Level 99 mmol/L (98-107) Carbon Dioxide Level 24 mmol/L (21-32) Anion Gap 10 (6-14) Blood Urea Nitrogen 24 mg/dL (8-26) Creatinine 3.9 mg/dL (0.7-1.3) Estimated GFR (Cockcroft-Gault) 17.8 BUN/Creatinine Ratio 6 (6-20) Glucose Level 177 mg/dL (70-99) Calcium Level 9.1 mg/dL (8.5-10.1) Total Bilirubin 0.3 mg/dL (0.2-1.0) Aspartate Amino Transf (AST/SGOT) 23 U/L (15-37) Alanine Aminotransferase (ALT/SGPT) 10 U/L (16-63) Alkaline Phosphatase 62 U/L (46-116) Total Protein 6.7 g/dL (6.4-8.2) Albumin 2.0 g/dL (3.4-5.0) Albumin/Globulin Ratio 0.4 (1.0-1.7) Micro Micro Microbiology 10/21/18 Blood Culture - Preliminary, Resulted NO GROWTH AFTER 3 DAYS Review of Systems Constitutional: yes: alert, oriented Ears/Nose/Throat: Yes: no symptom reported Eyes: Yes: no symptom reported Pulmonary: Yes dyspnea Cardiovascular: Yes no symptom reported Gastrointestional: Yes: no symptom reported Genitourinary: Yes: no symptom reported Musculoskeletal: Yes: no symptom reported Skin: Yes no symptom reported Psychiatric/Neurological: Yes: no symptom reported Endocrine: Yes: no symptom reported Physical Exam General Appearance: no apparent distress Skin: warm Respiratory: decreased breath sounds Heart: S1S2, RRR Abdomen: soft, bowel sounds present Genitourinary: bladder flat Extremities: pulses present Neurology: alert, oriented Assessment Assessment IMP HYPERKALEMIA-RESOLVED ANEMIA DM II HTN ESRD DIASTOLIC CHF ACUTE RESP FAILURE PLAN ENC COMPLIANCE HAVE ASKED FAMILY TO TAKE HIM TO HD FRIDAY D/C PLANS TODAY SHIVAM SMILEY MD Oct 24, 2018 11:55
[2018-10-24 15:00] VITALS: BP 103/77
--- NOTE | 2018-10-24 16:30 | NUR ---
Morning BP medications non-administered r/t low BP. MD notified. Orders placed. Continued to monitor.
--- NOTE | 2018-10-24 17:44 | NUR ---
Discharge Note: ADRIENNE PHILLIPS [address] Discharge instructions and discharge home medications reviewed with Patient and a copy given. All questions have been answered and understanding verbalized. The following instructions and handouts were given: Blood surgar monitoring, end stage renal disease, respiratory failure, wound care, wound infection, hypotension Discontinued lines and drains: peripheral IV removed. Catheter intact. Pt. has tunneled dialysis cath in left chest. Patient discharged to home with home health via [facility] on a stretcher. Family with pt. at all times. This nurse informed transportation about pt. need to have head elevated and tissues/a cup available for when he coughs up sputum.
== END 2018-10-24 17:15 | disposition home health service (06) | DRG 291 ==
LOC: ER 04:36 → 1 WEST ICU 05:00 → 5 SOUTH 10-22 12:46
PROVIDERS: ADMIT Family Medicine; ATTEND Family Medicine
PROC: 5A09357 Assistance with Respiratory Ventilation, Less than 24 Consecutive Hours, Continuous Positive Airway Pressure (ICD-10-PCS; principal; 2018-10-21)
PROC: 5A1D70Z Performance of Urinary Filtration, Intermittent, Less than 6 Hours Per Day (ICD-10-PCS; 2018-10-21)
PROC: 5A09357 Assistance with Respiratory Ventilation, Less than 24 Consecutive Hours, Continuous Positive Airway Pressure (ICD-10-PCS; 2018-10-22)
PROC: 5A1D70Z Performance of Urinary Filtration, Intermittent, Less than 6 Hours Per Day (ICD-10-PCS; 2018-10-23)
DX: I13.2 Hypertensive heart and chronic kidney disease with heart failure and with stage 5 chronic kidney disease, or end stage renal disease (principal); J18.9 Pneumonia, unspecified organism; J96.01 Acute respiratory failure with hypoxia; G93.41 Metabolic encephalopathy; N18.6 End stage renal disease; J44.1 Chronic obstructive pulmonary disease with (acute) exacerbation; I50.32 Chronic diastolic (congestive) heart failure; J44.0 Chronic obstructive pulmonary disease with (acute) lower respiratory infection; Z91.15 Patient's noncompliance with renal dialysis; E87.5 Hyperkalemia; E11.22 Type 2 diabetes mellitus with diabetic chronic kidney disease; E78.5 Hyperlipidemia, unspecified; Z99.2 Dependence on renal dialysis; D63.1 Anemia in chronic kidney disease; E21.3 Hyperparathyroidism, unspecified; E11.65 Type 2 diabetes mellitus with hyperglycemia; F41.9 Anxiety disorder, unspecified; Z74.01 Bed confinement status; Z79.4 Long term (current) use of insulin; Z79.82 Long term (current) use of aspirin; Z79.899 Other long term (current) drug therapy; Z82.49 Family history of ischemic heart disease and other diseases of the circulatory system; Z91.19 Patient's noncompliance with other medical treatment and regimen; Z90.49 Acquired absence of other specified parts of digestive tract; Z88.0 Allergy status to penicillin; Z88.2 Allergy status to sulfonamides; Z88.8 Allergy status to other drugs, medicaments and biological substances
CPT/HCPCS: 36415; 36600; 71045; 80053; 82962; 83880; 84484; 85007; 85025; 87040; 87641; 93005; 94640; 94660; J0881; J1815; J1956; J7613; 99285-25

== ENCOUNTER 2018-10-29 07:18 | Inpatient (IN) | payer MEDICARE, OTHER ==
[~2018-10-29] VITALS: Ht 180.3 cm; Wt 85.0 kg
[~2018-10-29 07:18] MED LIST changes: +ALBU2.5V8 INH; +CARV3.12 PO; +INSU100I13 SQ; +OMEP20CA10 PO; -OMEP20CA9 PO
[2018-10-29] MEDS ORDERED: ALBUTEROL SULFATE 2.5 MG/3 ML NEBU. CONT NEB ONE (07:30)
[2018-10-29] MEDS ORDERED: IPRATROPIUM BROMIDE 0.5 MG/2.5 ML NEBU. NEB ONE (07:30)
[2018-10-29 07:54] LABS: BASO % 0 % (0-3); EOS # 0.2 x10^3/uL (0.0-0.7); EOS % 1 % (0-3); HEMATOCRIT 33.1 % (39.0-53.0); HEMOGLOBIN 9.8 g/dL (13.0-17.5); LYMPH % 16 % (24-48); MEAN CORPUSCULAR HEMOGLOBIN 27 pg (25-35); MEAN CORPUSCULAR HGB CONC 30 g/dL (31-37); MEAN CORPUSCULAR VOLUME 92 fL (79-100); MONO # 0.9 x10^3/uL (0.0-1.1); MONO % 7 % (0-9); NEUT # 9.2 x10^3uL (1.8-7.7); NEUT % 75 % (31-73); PLATELET COUNT 433 x10^3/uL (140-400); RED BLOOD COUNT 3.59 x10^6/uL (4.30-5.70); RED CELL DISTRIBUTION WIDTH 17.7 % (11.5-14.5); WHITE BLOOD COUNT 12.3 x10^3/uL (4.0-11.0)
--- NOTE | 2018-10-29 08:03 | RAD ---
Portable chest, 10/29/2018: HISTORY: Dyspnea Comparison is made to a study from 10/21/2018. A left sided dialysis type catheter remains in place extending into the right atrium. The heart is enlarged. There is calcific plaquing the aorta. There is mild perihilar infiltrate, more so on the right, with obscuration of the underlying pulmonary vascularity. The appearance suggests mild pulmonary edema. There is mild pleural thickening laterally on the left likely due to subpleural fat or scarring. A small amount of pleural fluid cannot be excluded. Previously seen left basilar infiltrates have resolved. IMPRESSION: 1. Mild ongoing or recurrent perihilar-perivascular pulmonary edema. 2. Interval clearing of the left basilar infiltrates. Electronically signed by: Sunil Paulson MD (10/29/2018 8:00 AM) [facility]
[2018-10-29 08:17] LABS: CALCIUM 10.4 mg/dL (8.5-10.1); CREATININE 6.1 mg/dL (0.7-1.3); GFR 10.6
[2018-10-29 08:20] LABS: ALBUMIN 2.9 g/dL (3.4-5.0); ALBUMIN/GLOBULIN RATIO 0.5 (1.0-1.7); PHOSPHORUS 4.7 mg/dL (2.6-4.7); TOTAL BILIRUBIN 0.4 mg/dL (0.2-1.0); TOTAL PROTEIN 8.2 g/dL (6.4-8.2)
[2018-10-29 08:29] LABS: INFLUENZA A PATIENT NEGATIVE (NEGATIVE); INFLUENZA B PATIENT NEGATIVE (NEGATIVE)
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
[2018-10-29 09:36] LABS: BASE EXCESS ABG -2 mmol/L (-3-3); HCO3 ABG 23 mmol/L (21-28); PCO2 ABG 38 mmHg (35-46); PO2 ABG 66 mmHg (65-108); SAT O2 ABG 92 % (92-99)
[2018-10-29 09:40] LABS: FIO2 ABG 35
[2018-10-29] MEDS ORDERED: ACETAMINOPHEN 325 MG TABLET. PO PRN (09:45)
[2018-10-29 11:00] VITALS: BP 142/87
--- NOTE | 2018-10-29 11:34 | EKG ---
[facility] [address] [place] [address] Test Date: 2018-10-29 Test Time: 08:32:41 Pat Name: ADRIENNE PHILLIPS Department: Room: 205 1 Gender: Cancer Registry Coordinator: : 1930 Requested By: BRAYAN GONZALES Order Number: [id number] Reading MD: Damian Li MD Measurements Intervals [place] Rate: P: MS: QRS: QRSD: T: QT: QTc: Interpretive Statements SR IVCD LAD Electronically Signed On 11-09-2018 12:11:57 REHAB SPEC by Damian Li MD
--- NOTE | 2018-10-29 11:36 | PDOC2 ---
ASHLEY SMILEY CAFETERIA MONITOR 10/29/18 1136: CARDIAC CONSULT DATE OF CONSULT Date of Consult DATE: 10/29/18 TIME: 11:24 REASON FOR CONSULT Reason for Consult: CHF REFERRING PHYSICIAN Referring Physician: Dr. Grace SOURCE Source: Chart review, Patient HISTORY OF PRESENT ILLNESS HISTORY OF PRESENT ILLNESS This is an 88 yo male, with a history of ESRD on HD and cardiomyopathy, who presented secondary to respiratory distress. Missed HD on Friday. Has been short of breath the last couple of days. Much worse this morning. Was diaphoretic. No chest pain, palpitations, dizziness, or nausea/vomiting. EMS was called due to respiratory distress. Patient's oxygen saturation was in the 60's upon their arrival. Is bed bound at home. Follows at the [facility]. PAST MEDICAL HISTORY Cardiovascular: CHF, HTN, Hyperlipidemia Heme/Onc: Anemia NOS Musculoskeletal: Osteoarthritis Rheumatologic: Gout Renal/: Chronic renal failure (ESRD on HD) Endocrine: Diabetes PAST SURGICAL HISTORY Past Surgical History: Appendectomy, Tonsillectomy FAMILY HISTORY Family History: Heart Disease SOCIAL HISTORY Smoke: No ALCOHOL: none Drugs: None Lives: with Family CURRENT MEDICATIONS CURRENT MEDICATIONS Current Medications Medications (Trade) Dose Ordered Sig/Arlene Route PRN Reason Start Time Stop Time Status Last Admin Dose Admin Ipratropium [place] (Atrovent) 0.5 mg 1X ONCE NEB 10/29/18 07:30 10/29/18 07:31 DC 10/29/18 07:30 Albuterol Sulfate (Ventolin Neb Soln) 10 mg 1X ONCE CONT NEB 10/29/18 07:30 10/29/18 07:31 DC 10/29/18 08:59 ALLERGIES ALLERGIES: Coded Allergies: Penicillins (Verified Allergy, Intermediate, 10/29/18) amoxicillin (Verified Allergy, Intermediate, 10/29/18) codeine (Verified Allergy, Intermediate, 10/29/18) pt states he is able to tolerate this medication with his codeine allergy. erythromycin base (Verified Allergy, Intermediate, 10/29/18) sulfamethoxazole (Verified Allergy, Intermediate, 10/29/18) trimethoprim (Verified Allergy, Intermediate, 10/29/18) I S O L A T I O N *CONTACT* (Verified Allergy, Unknown, 10/29/18) mrsa ROS Review of System 14 point ROS conducted with pertinent positives noted above in HPI. VITALS VITALS Vital Signs Date Time Temp Pulse Resp B/P (MAP) Pulse Ox O2 Delivery O2 Flow Rate FiO2 10/29/18 11:00 99.4 79 20 142/87 (105) 97 Nasal Cannula 4.0 99.4 LABS Lab: Laboratory Tests Test 10/29/18 07:35 10/29/18 07:50 10/29/18 09:30 White Blood Count 12.3 x10^3/uL (4.0-11.0) Red Blood Count 3.59 x10^6/uL (4.30-5.70) Hemoglobin 9.8 g/dL (13.0-17.5) Hematocrit 33.1 % (39.0-53.0) Mean Corpuscular Volume 92 fL (79-100) Mean Corpuscular Hemoglobin 27 pg (25-35) Mean Corpuscular Hemoglobin Concent 30 g/dL (31-37) Red Cell Distribution Width 17.7 % (11.5-14.5) Platelet Count 433 x10^3/uL (140-400) Neutrophils (%) (Auto) 75 % (31-73) Lymphocytes (%) (Auto) 16 % (24-48) Monocytes (%) (Auto) 7 % (0-9) Eosinophils (%) (Auto) 1 % (0-3) Basophils (%) (Auto) 0 % (0-3) Neutrophils # (Auto) 9.2 x10^3uL (1.8-7.7) Lymphocytes # (Auto) 2.0 x10^3/uL (1.0-4.8) Monocytes # (Auto) 0.9 x10^3/uL (0.0-1.1) Eosinophils # (Auto) 0.2 x10^3/uL (0.0-0.7) Basophils # (Auto) 0.0 x10^3/uL (0.0-0.2) Sodium Level 141 mmol/L (136-145) Potassium Level 5.0 mmol/L (3.5-5.1) Chloride Level 101 mmol/L (98-107) Carbon Dioxide Level 25 mmol/L (21-32) Anion Gap 15 (6-14) Blood Urea Nitrogen 43 mg/dL (8-26) Creatinine 6.1 mg/dL (0.7-1.3) Estimated GFR (Cockcroft-Gault) 10.6 BUN/Creatinine Ratio 7 (6-20) Glucose Level 192 mg/dL (70-99) Lactic Acid Level 1.7 mmol/L (0.4-2.0) Calcium Level 10.4 mg/dL (8.5-10.1) Phosphorus Level 4.7 mg/dL (2.6-4.7) Magnesium Level 2.0 mg/dL (1.8-2.4) Total Bilirubin 0.4 mg/dL (0.2-1.0) Aspartate Amino Transf (AST/SGOT) 14 U/L (15-37) Alanine Aminotransferase (ALT/SGPT) 12 U/L (16-63) Alkaline Phosphatase 74 U/L (46-116) Troponin I Quantitative 0.102 ng/mL (0.000-0.055) BI-Zdz-[id number]-Type Natriuretic Peptide > 65138 pg/mL (0-449) Total Protein 8.2 g/dL (6.4-8.2) Albumin 2.9 g/dL (3.4-5.0) Albumin/Globulin Ratio 0.5 (1.0-1.7) Influenza Type A Antigen Negative (NEGATIVE) Influenza Type B Antigen Negative (NEGATIVE) O2 Saturation 92 % (92-99) Arterial Blood pH 7.39 (7.35-7.45) Arterial Blood pCO2 at Patient Temp 38 mmHg (35-46) Arterial Blood pO2 at Patient Temp 66 mmHg (65-108) Arterial Blood HCO3 23 mmol/L (21-28) Arterial Blood Base Excess -2 mmol/L (-3-3) FiO2 35 ECHOCARDIOGRAM ECHOCARDIOGRAM <Conclusion> Technically difficult study. The left ventricular systolic function is moderately impaired. The Ejection Fraction is estimated at 30%. Doppler and Color-flow revealed trace mitral regurgitation. There is no evidence of significant pericardial effusion. DATE: 07/01/16 0855 ASSESSMENT/PLAN ASSESSMENT/PLAN Acute hypoxic respiratory failure Acute on chronic systolic HF; LVEF previously 30%. CXR with vascular congestion ESRD on HD. Missed HD Friday Malignant hypertension Mild troponin elevation Hyperlipidemia Diabetes, II Recommendations Echo to assess LV systolic function Fluid offloading via HD as per renal CHAPIN ORDONEZ MD 10/30/18 6710: CARDIAC CONSULT ASSESSMENT/PLAN ASSESSMENT/PLAN Patient seen and examined on 10/29/18 Acute on chronic systolic heart failure. Previous ejection fraction of 30% with vascular congestion on chest x-ray. We'll recheck an echocardiogram for an update on ejection fraction. Fluid management largely through the patient's hemodialysis. We'll continue to monitor troponin. End-stage renal disease. Missed dialysis yesterday. Further hemodialysis as per the renal service. Malignant hypertension. Improved on present treatments. We'll adjust medications as needed. Minimally elevated troponin. No acute EKG changes. Consistent with demand ischemia with end-stage renal disease. We'll trend troponin. Hyperlipidemia. Statins. Diabetes mellitus. As per the primary service. Thank you for allowing us to participate in the care of your patient. ASHLEY SMILEY APRN Oct 29, 2018 11:36 CHAPIN ORDONEZ MD Oct 30, 2018 09:10
[2018-10-29] MEDS ORDERED: INSU100C4 SQ (11:56)
[2018-10-29] MEDS: IPRATRPIUM/ALBUTEROL 0.5/2.5MG 3 ML NEBU. NEB SCH ×3 (12:08→19:42)
--- NOTE | 2018-10-29 12:25 | PDOC2 ---
CONSULT Date of Consult Date of Consult DATE: 10/29/18 TIME: 12:12 Reason for Consult Reason for Consult: ESRD Source Source: Caregiver, Chart review, Patient History of Present Illness Reason for Visit: Patient is an 88-year-old AA male ESRD on HD MWF, presented to the ED via EMS with report of acute respiratory distress that reportedly had started this morning. EMS reports that upon their arrival patient's oxygen level was in the 60s. Patient was placed on CPAP by EMS and after 2 breathing treatments his oxygen saturation had come up to 92%. His last dialysis was on Friday, he is picked up by travel for HD. As per Travel went to pick him up yesterday to take him to the Op unit, Pt refused to go Currently he is stable, On O2 by [place] ( as per has Home O2 3-4 Lts) , has Chronic cough with secretions , NoN/V. He is asking for food. Past Medical History Cardiovascular: CHF, HTN, Hyperlipidemia Pulmonary: COPD GI: Constipation Heme/Onc: Anemia NOS Psych: No pertinent hx Musculoskeletal: Osteoarthritis Rheumatologic: Gout Infectious disease: No pertinent hx, Other Renal/: Chronic renal failure (ESRD on HD) Endocrine: Diabetes Past Surgical History Past Surgical History: Appendectomy, Tonsillectomy Family History Family History: Heart Disease Social History No ALCOHOL: none Drugs: None Lives: with Family Current Problem List Problem List Problems Medical Problems: (1) COPD with acute exacerbation Status: Acute Current Medications Current Medications Current Medications Ipratropium [place] (Atrovent) 0.5 mg 1X ONCE NEB Last administered on at 07:30; Start 10/29/18 at 07:30; Stop 10/29/18 at 07:31; Status DC Albuterol Sulfate (Ventolin Neb Soln) 10 mg 1X ONCE CONT NEB Last administered on 10/29/18at 08:59; Start 10/29/18 at 07:30; Stop 10/29/18 at 07:31 ; Status DC Acetaminophen (Tylenol) 650 mg PRN Q4HRS PRN PO FEVER; Start 10/29/18 at 09:45 ; Stop 10/30/18 at 09:44 Albuterol/ Ipratropium (Duoneb) 3 ml RTQID NEB Last administered on 10/29/18at 12:08; Start 10/29/18 at 12:00; Stop 10/30/18 at 11:59 Active Scripts Active Coreg (Carvedilol) 3.125 Mg Tablet 3.125 Mg PO BIDWMEALS 30 Days Proair Hfa Inhaler (Albuterol Sulfate) 8.5 Gm Hfa.aer.ad 1 Puff INH PRN Q6HRS PRN 14 Days Levaquin (Levofloxacin) 500 Mg Tablet 0.5 Tab PO QODAY Reported Novolog (Insulin Aspart) 100 Unit/1 Ml Cartridge 100 Unit SQ TIDBFRMEAL Miralax (Polyethylene Glycol 3350) 17 Gm Powd.pack 1 Pkt PO DAILY Capsaicin 60 Gm Cream..g. 60 Gm TP PRN BID PRN Acetaminophen 500 Mg Tablet 500 Mg PO PRN BID PRN Dulcolax (Bisacodyl) 5 Mg Tablet.dr 5 Mg PO PRN DAILY PRN Ketoconazole 15 Gm Cream..g. 1 Rohit TP BID Clonazepam 0.5 Mg Tablet 0.25 Mg PO PRN BID PRN Allopurinol 100 Mg Tablet 1 Tab PO DAILY Docusate Sodium 100 Mg Capsule 2 Cap PO DAILY Nephro-Woody Tablet (Folic Acid/Vitamin B Comp W-C) 0.8 Mg Tablet 1 Tab PO DAILY Aspirin 81 Mg Tab.chew 1 Tab PO DAILY Omeprazole 20 Mg Capsule. 1 Cap PO BID Allergies Allergies: Coded Allergies: Penicillins (Verified Allergy, Intermediate, 10/29/18) amoxicillin (Verified Allergy, Intermediate, 10/29/18) codeine (Verified Allergy, Intermediate, 10/29/18) pt states he is able to tolerate this medication with his codeine allergy. erythromycin base (Verified Allergy, Intermediate, 10/29/18) sulfamethoxazole (Verified Allergy, Intermediate, 10/29/18) trimethoprim (Verified Allergy, Intermediate, 10/29/18) I S O L A T I O N *CONTACT* (Verified Allergy, Unknown, 10/29/18) mrsa ROS Review of System As per HPI Physical Exam Physical Exam GEN: NAD , awake and alert HEENT- On o2 by [place](at home as well) NECK:Supple CVS: RRR RESP: CTA, No Acc Muscle use GI: BS + ve, NO Bruit, Non Tender, : No CVA tenderness, No Suprapubic Tenderness, No Bianchi Neuro- at his baseline Skin - no rash Ext- Trace edema Vital Signs Vital Signs Date Time Temp Pulse Resp B/P (MAP) Pulse Ox O2 Delivery O2 Flow Rate FiO2 10/29/18 11:00 99.4 79 20 142/87 (105) 97 Nasal Cannula 4.0 99.4 Assessment & Plan ESRD- On HD MWF Missed HD yesterday , Stable Lytes and acid base Stable Fluid status, CxR reported as mild congestion 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 CXR with mild vascular congestion Malignant hypertension BP improved Card Managing Anemia- Stable Diabetes, II- as per primary Labs Labs Laboratory Tests Test 10/29/18 07:35 10/29/18 07:50 10/29/18 09:30 White Blood Count 12.3 x10^3/uL (4.0-11.0) Red Blood Count 3.59 x10^6/uL (4.30-5.70) Hemoglobin 9.8 g/dL (13.0-17.5) Hematocrit 33.1 % (39.0-53.0) Mean Corpuscular Volume 92 fL (79-100) Mean Corpuscular Hemoglobin 27 pg (25-35) Mean Corpuscular Hemoglobin Concent 30 g/dL (31-37) Red Cell Distribution Width 17.7 % (11.5-14.5) Platelet Count 433 x10^3/uL (140-400) Neutrophils (%) (Auto) 75 % (31-73) Lymphocytes (%) (Auto) 16 % (24-48) Monocytes (%) (Auto) 7 % (0-9) Eosinophils (%) (Auto) 1 % (0-3) Basophils (%) (Auto) 0 % (0-3) Neutrophils # (Auto) 9.2 x10^3uL (1.8-7.7) Lymphocytes # (Auto) 2.0 x10^3/uL (1.0-4.8) Monocytes # (Auto) 0.9 x10^3/uL (0.0-1.1) Eosinophils # (Auto) 0.2 x10^3/uL (0.0-0.7) Basophils # (Auto) 0.0 x10^3/uL (0.0-0.2) Sodium Level 141 mmol/L (136-145) Potassium Level 5.0 mmol/L (3.5-5.1) Chloride Level 101 mmol/L (98-107) Carbon Dioxide Level 25 mmol/L (21-32) Anion Gap 15 (6-14) Blood Urea Nitrogen 43 mg/dL (8-26) Creatinine 6.1 mg/dL (0.7-1.3) Estimated GFR (Cockcroft-Gault) 10.6 BUN/Creatinine Ratio 7 (6-20) Glucose Level 192 mg/dL (70-99) Lactic Acid Level 1.7 mmol/L (0.4-2.0) Calcium Level 10.4 mg/dL (8.5-10.1) Phosphorus Level 4.7 mg/dL (2.6-4.7) Magnesium Level 2.0 mg/dL (1.8-2.4) Total Bilirubin 0.4 mg/dL (0.2-1.0) Aspartate Amino Transf (AST/SGOT) 14 U/L (15-37) Alanine Aminotransferase (ALT/SGPT) 12 U/L (16-63) Alkaline Phosphatase 74 U/L (46-116) Troponin I Quantitative 0.102 ng/mL (0.000-0.055) YT-Mgi-B-Type Natriuretic Peptide > 56896 pg/mL (0-449) Total Protein 8.2 g/dL (6.4-8.2) Albumin 2.9 g/dL (3.4-5.0) Albumin/Globulin Ratio 0.5 (1.0-1.7) Influenza Type A Antigen Negative (NEGATIVE) Influenza Type B Antigen Negative (NEGATIVE) O2 Saturation 92 % (92-99) Arterial Blood pH 7.39 (7.35-7.45) Arterial Blood pCO2 at Patient Temp 38 mmHg (35-46) Arterial Blood pO2 at Patient Temp 66 mmHg (65-108) Arterial Blood HCO3 23 mmol/L (21-28) Arterial Blood Base Excess -2 mmol/L (-3-3) FiO2 35 Laboratory Tests Test 10/29/18 07:35 10/29/18 07:50 10/29/18 09:30 White Blood Count 12.3 x10^3/uL (4.0-11.0) Red Blood Count 3.59 x10^6/uL (4.30-5.70) Hemoglobin 9.8 g/dL (13.0-17.5) Hematocrit 33.1 % (39.0-53.0) Mean Corpuscular Volume 92 fL (79-100) Mean Corpuscular Hemoglobin 27 pg (25-35) Mean Corpuscular Hemoglobin Concent 30 g/dL (31-37) Red Cell Distribution Width 17.7 % (11.5-14.5) Platelet Count 433 x10^3/uL (140-400) Neutrophils (%) (Auto) 75 % (31-73) Lymphocytes (%) (Auto) 16 % (24-48) Monocytes (%) (Auto) 7 % (0-9) Eosinophils (%) (Auto) 1 % (0-3) Basophils (%) (Auto) 0 % (0-3) Neutrophils # (Auto) 9.2 x10^3uL (1.8-7.7) Lymphocytes # (Auto) 2.0 x10^3/uL (1.0-4.8) Monocytes # (Auto) 0.9 x10^3/uL (0.0-1.1) Eosinophils # (Auto) 0.2 x10^3/uL (0.0-0.7) Basophils # (Auto) 0.0 x10^3/uL (0.0-0.2) Sodium Level 141 mmol/L (136-145) Potassium Level 5.0 mmol/L (3.5-5.1) Chloride Level 101 mmol/L (98-107) Carbon Dioxide Level 25 mmol/L (21-32) Anion Gap 15 (6-14) Blood Urea Nitrogen 43 mg/dL (8-26) Creatinine 6.1 mg/dL (0.7-1.3) Estimated GFR (Cockcroft-Gault) 10.6 BUN/Creatinine Ratio 7 (6-20) Glucose Level 192 mg/dL (70-99) Lactic Acid Level 1.7 mmol/L (0.4-2.0) Calcium Level 10.4 mg/dL (8.5-10.1) Phosphorus Level 4.7 mg/dL (2.6-4.7) Magnesium Level 2.0 mg/dL (1.8-2.4) Total Bilirubin 0.4 mg/dL (0.2-1.0) Aspartate Amino Transf (AST/SGOT) 14 U/L (15-37) Alanine Aminotransferase (ALT/SGPT) 12 U/L (16-63) Alkaline Phosphatase 74 U/L (46-116) Troponin I Quantitative 0.102 ng/mL (0.000-0.055) WS-Wzl-S-Type Natriuretic Peptide > 03563 pg/mL (0-449) Total Protein 8.2 g/dL (6.4-8.2) Albumin 2.9 g/dL (3.4-5.0) Albumin/Globulin Ratio 0.5 (1.0-1.7) Influenza Type A Antigen Negative (NEGATIVE) Influenza Type B Antigen Negative (NEGATIVE) O2 Saturation 92 % (92-99) Arterial Blood pH 7.39 (7.35-7.45) Arterial Blood pCO2 at Patient Temp 38 mmHg (35-46) Arterial Blood pO2 at Patient Temp 66 mmHg (65-108) Arterial Blood HCO3 23 mmol/L (21-28) Arterial Blood Base Excess -2 mmol/L (-3-3) FiO2 35 Review All relevant outside records, renal labs, imaging studies, telemetry/EKG's were reviewed. Images Images Cxr- Comparison is made to a study from 10/21/2018. A left sided dialysis type catheter remains in place extending into the right atrium. The heart is enlarged. There is calcific plaquing the aorta. There is mild perihilar infiltrate, more so on the right, with obscuration of the underlying pulmonary vascularity. The appearance suggests mild pulmonary edema. There is mild pleural thickening laterally on the left likely due to subpleural fat or scarring. A small amount of pleural fluid cannot be excluded. Previously seen left basilar infiltrates have resolved. IMPRESSION: 1. Mild ongoing or recurrent perihilar-perivascular pulmonary edema. 2. Interval clearing of the left basilar infiltrates. ANABELLE KENDALL MD Oct 29, 2018 12:25
[2018-10-29 12:35] LABS: CHOLESTEROL/HDL RATIO 3.9
--- NOTE | 2018-10-29 13:17 | PDOC1 ---
History and Physical Date of Admission Date of Admission 10/29/2018 Identification/Chief Complaint Chief Complaint shortness of breath Problems: (1) CHF exacerbation (2) Hypoxia (3) End stage renal disease (4) Pressure ulcer Source Source: Caregiver, Chart review, Patient History of Present Illness History of Present Illness Patient is an 88-year-old AA male ESRD on HD MWF, and multiple medical comorbidities who is bed bound at home. He was transported to the emergency department via EMS after they were summoned for respiratory distress to the household. According to EMS report patient's oxygen level was in the 60s and the patient was placed on a CPAP with improvement in his oxygen saturation route. Patient has not been to his hemodialysis on Friday since he refused treatment. The patient was recently admitted to the hospital and treated for a pneumonic process, the patient and is usually pretty congested as per Dr. riley and utilizes oxygen 24 7. The patient denies fever chills no recent sick contacts, no pleurisy, as per Dr. riley the patient is expectorating some blood- tinged sputum but he does not seem to be in acute respiratory distress at the time my evaluation. He was evaluated in the emergency department and we have been asked to admit for fluid overload. The patient is chronically ill-appearing he has a decubitus ulcer or from necrotic scar over his left heel the bottom of his foot, he denies chest pain or palpitations of the time my evaluation no abdominal pain no urinary symptoms were reported. Plan of care has been explained detail all concerns were addressed to the best of my abilities ER history and physical Presented to the ED via EMS with report of acute respiratory distress that reportedly had started this morning. EMS reports that upon their arrival patient 's oxygen level was in the 60s. Patient was placed on CPAP by EMS and after 2 breathing treatments his oxygen saturation had come up to 92%. His last dialysis was on Friday, he is picked up by travel for HD. As per Travel went to pick him up yesterday to take him to the Op unit, Pt refused to go Currently he is stable, On O2 by [place] ( as per has Home O2 3-4 Lts) , has Chronic cough with secretions , NoN/V. He is asking for food. Past Medical History Cardiovascular: CHF, HTN, Hyperlipidemia Pulmonary: COPD GI: Constipation Heme/Onc: Anemia NOS Psych: No pertinent hx Rheumatologic: Gout Infectious disease: No pertinent hx, Other Renal/: Chronic renal failure (ESRD on HD) Endocrine: Diabetes Past Surgical History Past Surgical History: Appendectomy, Tonsillectomy Family History Family History: Heart Disease Social History Smoke: No ALCOHOL: none Drugs: None Current Problem List Problem List Problems Medical Problems: (1) COPD with acute exacerbation Status: Acute Current Medications Current Medications Current Medications Medications (Trade) Dose Ordered Sig/Arlene Start Time Stop Time Status Last Admin Dose Admin Acetaminophen (Tylenol) 650 mg PRN Q4HRS PRN 10/29/18 09:45 10/30/18 09:44 Albuterol Sulfate (Ventolin Neb Soln) 10 mg 1X ONCE 10/29/18 07:30 10/29/18 07:31 DC 10/29/18 08:59 10 MG Albuterol/ Ipratropium (Duoneb) 3 ml RTQID 10/29/18 12:00 10/30/18 11:59 10/29/18 12:08 3 ML Ipratropium [place] (Atrovent) 0.5 mg 1X ONCE 10/29/18 07:30 10/29/18 07:31 DC 10/29/18 07:30 0.5 MG Allergies Allergies Allergies Coded Allergies Type Severity Reaction Last Updated Verified Penicillins Allergy Intermediate 10/29/18 Yes amoxicillin Allergy Intermediate 10/29/18 Yes codeine Allergy Intermediate 10/29/18 Yes erythromycin base Allergy Intermediate 10/29/18 Yes sulfamethoxazole Allergy Intermediate 10/29/18 Yes trimethoprim Allergy Intermediate 10/29/18 Yes I S O L A T I O N *CONTACT* Allergy Unknown 10/29/18 Yes ROS Review of System CONSTITUTIONAL: No fever or chills EYES: No recent changes SKIN: No rash or itching CARDIOVASCULAR: No chest pain, syncope, palpitations, or edema RESPIRATORY: No SOB or cough GASTROINTESTINAL: No nausea, vomiting or abdominal pain NEUROLOGICAL: No headaches or weakness ENDOCRINE: No cold or heat intolerance GENITOURINARY: No urgency or frequency of urination MUSCULOSKELETAL: No back pain or joint pain LYMPHATICS: No enlarged lymph nodes PSYCHIATRIC: No anxiety or depression Physical Exam Physical Exam GEN.: No apparent distress. Chronically ill-appearing Alert and oriented. HEENT: Head is normocephalic, atraumatic NECK: Supple. LUNGS: Coarse to auscultation. HEART: RRR, S1, S2 present. systolic murmur ABDOMEN: Soft, nontender. Positive bowel sounds. EXTREMITIES: Without any cyanosis. NEUROLOGIC: Normal speech, normal tone PSYCHIATRIC: Normal affect, normal mood. SKIN: left heel necrotic pressure ulcer, venous insufficiency over lower extremities, dry cracked skin Vitals Vitals Vital Signs Date Time Temp Pulse Resp B/P (MAP) Pulse Ox O2 Delivery O2 Flow Rate FiO2 10/29/18 12:28 100 Nasal Cannula 4.0 10/29/18 11:00 99.4 79 20 142/87 (105) 99.4 Labs Labs Laboratory Tests Test 10/29/18 07:35 10/29/18 07:50 10/29/18 09:30 10/29/18 12:11 White Blood Count 12.3 x10^3/uL (4.0-11.0) Red Blood Count 3.59 x10^6/uL (4.30-5.70) Hemoglobin 9.8 g/dL (13.0-17.5) Hematocrit 33.1 % (39.0-53.0) Mean Corpuscular Volume 92 fL (79-100) Mean Corpuscular Hemoglobin 27 pg (25-35) Mean Corpuscular Hemoglobin Concent 30 g/dL (31-37) Red Cell Distribution Width 17.7 % (11.5-14.5) Platelet Count 433 x10^3/uL (140-400) Neutrophils (%) (Auto) 75 % (31-73) Lymphocytes (%) (Auto) 16 % (24-48) Monocytes (%) (Auto) 7 % (0-9) Eosinophils (%) (Auto) 1 % (0-3) Basophils (%) (Auto) 0 % (0-3) Neutrophils # (Auto) 9.2 x10^3uL (1.8-7.7) Lymphocytes # (Auto) 2.0 x10^3/uL (1.0-4.8) Monocytes # (Auto) 0.9 x10^3/uL (0.0-1.1) Eosinophils # (Auto) 0.2 x10^3/uL (0.0-0.7) Basophils # (Auto) 0.0 x10^3/uL (0.0-0.2) Sodium Level 141 mmol/L (136-145) Potassium Level 5.0 mmol/L (3.5-5.1) Chloride Level 101 mmol/L (98-107) Carbon Dioxide Level 25 mmol/L (21-32) Anion Gap 15 (6-14) Blood Urea Nitrogen 43 mg/dL (8-26) Creatinine 6.1 mg/dL (0.7-1.3) Estimated GFR (Cockcroft-Gault) 10.6 BUN/Creatinine Ratio 7 (6-20) Glucose Level 192 mg/dL (70-99) Lactic Acid Level 1.7 mmol/L (0.4-2.0) Calcium Level 10.4 mg/dL (8.5-10.1) Phosphorus Level 4.7 mg/dL (2.6-4.7) Magnesium Level 2.0 mg/dL (1.8-2.4) Total Bilirubin 0.4 mg/dL (0.2-1.0) Aspartate Amino Transf (AST/SGOT) 14 U/L (15-37) Alanine Aminotransferase (ALT/SGPT) 12 U/L (16-63) Alkaline Phosphatase 74 U/L (46-116) Troponin I Quantitative 0.102 ng/mL (0.000-0.055) SY-Imd-I-Type Natriuretic Peptide > 46460 pg/mL (0-449) Total Protein 8.2 g/dL (6.4-8.2) Albumin 2.9 g/dL (3.4-5.0) Albumin/Globulin Ratio 0.5 (1.0-1.7) Triglycerides Level 86 mg/dL (0-150) Cholesterol Level 130 mg/dL (0-200) LDL Cholesterol, Calculated 80 mg/dL (0-100) VLDL Cholesterol, Calculated 17 mg/dL (0-40) Non-HDL Cholesterol Calculated 97 mg/dL (0-129) HDL Cholesterol 33 mg/dL (40-60) Cholesterol/HDL Ratio 3.9 Influenza Type A Antigen Negative (NEGATIVE) Influenza Type B Antigen Negative (NEGATIVE) O2 Saturation 92 % (92-99) Arterial Blood pH 7.39 (7.35-7.45) Arterial Blood pCO2 at Patient Temp 38 mmHg (35-46) Arterial Blood pO2 at Patient Temp 66 mmHg (65-108) Arterial Blood HCO3 23 mmol/L (21-28) Arterial Blood Base Excess -2 mmol/L (-3-3) FiO2 35 Glucose (Fingerstick) 151 mg/dL (70-99) Laboratory Tests Test 10/29/18 07:35 10/29/18 07:50 10/29/18 09:30 10/29/18 12:11 White Blood Count 12.3 x10^3/uL (4.0-11.0) Red Blood Count 3.59 x10^6/uL (4.30-5.70) Hemoglobin 9.8 g/dL (13.0-17.5) Hematocrit 33.1 % (39.0-53.0) Mean Corpuscular Volume 92 fL (79-100) Mean Corpuscular Hemoglobin 27 pg (25-35) Mean Corpuscular Hemoglobin Concent 30 g/dL (31-37) Red Cell Distribution Width 17.7 % (11.5-14.5) Platelet Count 433 x10^3/uL (140-400) Neutrophils (%) (Auto) 75 % (31-73) Lymphocytes (%) (Auto) 16 % (24-48) Monocytes (%) (Auto) 7 % (0-9) Eosinophils (%) (Auto) 1 % (0-3) Basophils (%) (Auto) 0 % (0-3) Neutrophils # (Auto) 9.2 x10^3uL (1.8-7.7) Lymphocytes # (Auto) 2.0 x10^3/uL (1.0-4.8) Monocytes # (Auto) 0.9 x10^3/uL (0.0-1.1) Eosinophils # (Auto) 0.2 x10^3/uL (0.0-0.7) Basophils # (Auto) 0.0 x10^3/uL (0.0-0.2) Sodium Level 141 mmol/L (136-145) Potassium Level 5.0 mmol/L (3.5-5.1) Chloride Level 101 mmol/L (98-107) Carbon Dioxide Level 25 mmol/L (21-32) Anion Gap 15 (6-14) Blood Urea Nitrogen 43 mg/dL (8-26) Creatinine 6.1 mg/dL (0.7-1.3) Estimated GFR (Cockcroft-Gault) 10.6 BUN/Creatinine Ratio 7 (6-20) Glucose Level 192 mg/dL (70-99) Lactic Acid Level 1.7 mmol/L (0.4-2.0) Calcium Level 10.4 mg/dL (8.5-10.1) Phosphorus Level 4.7 mg/dL (2.6-4.7) Magnesium Level 2.0 mg/dL (1.8-2.4) Total Bilirubin 0.4 mg/dL (0.2-1.0) Aspartate Amino Transf (AST/SGOT) 14 U/L (15-37) Alanine Aminotransferase (ALT/SGPT) 12 U/L (16-63) Alkaline Phosphatase 74 U/L (46-116) Troponin I Quantitative 0.102 ng/mL (0.000-0.055) TO-Pbn-V-Type Natriuretic Peptide > 21664 pg/mL (0-449) Total Protein 8.2 g/dL (6.4-8.2) Albumin 2.9 g/dL (3.4-5.0) Albumin/Globulin Ratio 0.5 (1.0-1.7) Triglycerides Level 86 mg/dL (0-150) Cholesterol Level 130 mg/dL (0-200) LDL Cholesterol, Calculated 80 mg/dL (0-100) VLDL Cholesterol, Calculated 17 mg/dL (0-40) Non-HDL Cholesterol Calculated 97 mg/dL (0-129) HDL Cholesterol 33 mg/dL (40-60) Cholesterol/HDL Ratio 3.9 Influenza Type A Antigen Negative (NEGATIVE) Influenza Type B Antigen Negative (NEGATIVE) O2 Saturation 92 % (92-99) Arterial Blood pH 7.39 (7.35-7.45) Arterial Blood pCO2 at Patient Temp 38 mmHg (35-46) Arterial Blood pO2 at Patient Temp 66 mmHg (65-108) Arterial Blood HCO3 23 mmol/L (21-28) Arterial Blood Base Excess -2 mmol/L (-3-3) FiO2 35 Glucose (Fingerstick) 151 mg/dL (70-99) Images Images PATIENT: ADRIENNE PHILLIPS ACCOUNT: [id number] : 1930 LOCATION: ER AGE: 88 SEX: M EXAM STATUS: PRE ER ORD. PHYSICIAN: BRAYAN GONZALES Jr. DO REASON: dyspnea PROCEDURE: PORTABLE CHEST 1V Portable chest, 10/29/2018: HISTORY: Dyspnea Comparison is made to a study from 10/21/2018. A left sided dialysis type catheter remains in place extending into the right atrium. The heart is enlarged. There is calcific plaquing the aorta. There is mild perihilar infiltrate, more so on the right, with obscuration of the underlying pulmonary vascularity. The appearance suggests mild pulmonary edema. There is mild pleural thickening laterally on the left likely due to subpleural fat or scarring. A small amount of pleural fluid cannot be excluded. Previously seen left basilar infiltrates have resolved. IMPRESSION: 1. Mild ongoing or recurrent perihilar-perivascular pulmonary edema. 2. Interval clearing of the left basilar infiltrates. Electronically signed by: Sunil Paulson MD (10/29/2018 8:00 AM) [facility] DICTATED and SIGNED BY: SUNIL PAULSON MD DATE: 10/29/18 0756 VTE Prophylaxis Ordered VTE Prophylaxis Devices: No VTE Pharmacological Prophylaxi: Yes Assessment/Plan Assessment/Plan Respiratory distress secondary to volume overload Resolved previous pneumonia on x-ray End-stage renal disease on hemodialysis with missed ultrafiltration yesterday Hypertension poorly controlled Decubitus ulcer over the left heel present on admission necrotic base History of gout currently with no flare Elevated troponin most likely secondary to volume overload Plan: Admit for hemodialysis Monitor respiratory status Consult cardiology for a mildly elevated troponin in the setting of renal dysfunction most likely needs a false-positive versus2 mild elevation of troponin secondary to demand ischemia Resume home medications VT prophylaxis with heparin Further recommendation Problem Qualifiers (1) CHF exacerbation: Heart failure type: unspecified Qualified Codes: I50.9 - Heart failure, unspecified BARNEY GALEAS MD Oct 29, 2018 13:16
[2018-10-29] MEDS ORDERED: clonazePAM 0.5 MG TABLET PO PRN (13:30)
[2018-10-29] MEDS ORDERED: BISACODYL 5 MG TABLET.DR. PO PRN (13:30)
[2018-10-29] MEDS: DOCUSATE SODIUM 100 MG CAPSULE. PO SCH (13:39)
[2018-10-29] MEDS: POLYETHYLENE GLYCOL 3350 17 GM PACKET. PO SCH (13:40)
[2018-10-29] MEDS ORDERED: ACETAMINOPHEN 500 MG TABLET PO PRN (13:45)
[2018-10-29] MEDS ORDERED: CAPSAICIN 0.025% TOPICAL CREAM 60GM TUBE. TP PRN (14:00)
[2018-10-29] MEDS: ASPIRIN CHEWABLE 81 MG TABLET. PO SCH (14:15)
[2018-10-29] MEDS: FOLIC/VIT B COMP W-C (RENAL) TABLET. PO SCH (14:15)
[2018-10-29] MEDS: ALLOPURINOL 100 MG TABLET. PO SCH (14:15)
[2018-10-29] MEDS ORDERED: DIALYSIS PATIENT. MC PRN ×2 (15:00)
[2018-10-29 15:10] VITALS: BP 171/82
--- NOTE | 2018-10-29 15:43 | CARD ---
MR#: [id number] Date of Study: 10/29/2018 Ordering Physician: ASHLEY SMILEY, Referring Physician: BARNEY GALEAS Tech: Yaima Cortes RDCS APPROVED REPORT EXAM: Two-dimensional and M-mode echocardiogram with Doppler and color Doppler. Other Information Quality : Fair INDICATION Congestive Heart Failure 2D DIMENSIONS RVDd2.2 (2.9-3.5cm)Left Atrium(2D)4.5 (1.6-4.0cm) IVSd1.6 (0.7-1.1cm)Aortic Root(2D)3.2 (2.0-3.7cm) LVDd4.5 (3.9-5.9cm)LVOT Diameter2.3 (1.8-2.4cm) PWd1.3 (0.7-1.1cm)LVDs3.7 (2.5-4.0cm) FS (%) 16.0 %SV30.4 ml Mitral Valve MV E Ttblklpo62.6cm/sMV DECEL [id number] MV A Woahulif66.7cm/sE/A Ratio0.9 TDI Lateral E' P. V6.56cm/sMedial E' P. V4.83cm/s E/Lateral E'10.6E/Medial E'14.4 Tricuspid Valve TR P. Gydwdbzh647nv/sRAP [id number] TR Peak Gr.[id number] LEFT VENTRICLE The left ventricle is normal size. There is mild concentric left ventricular hypertrophy. The left ve ntricular systolic function is normal and the ejection fraction is within normal range. The Ejection Fraction is 50-55%. There is normal LV segmental wall motion. Transmitral Doppler flow pattern is Gra de I-abnormal relaxation pattern. RIGHT VENTRICLE The right ventricle is normal size. The right ventricular systolic function is normal. ATRIA The left atrium is mildly dilated. The right atrium size is normal. The interatrial septum is intact with no evidence for an atrial septal defect or patent foramen ovale as noted on 2-D or Doppler imagi ng. AORTIC VALVE The aortic valve is calcified but opens well. Doppler and Color Flow revealed no significant aortic r egurgitation. There is no significant aortic valvular stenosis. MITRAL VALVE The mitral valve is calcified but opens well. Mitral annular calcification is mild. There is no evide nce of mitral valve prolapse. There is no mitral valve stenosis. Doppler and Color-flow revealed mild mitral regurgitation. TRICUSPID VALVE The tricuspid valve is normal in structure and function. Doppler and Color Flow revealed mild tricusp id regurgitation. There is moderate-severe pulmonary hypertension. The PA pressure was estimated at 5 2 mmHg. There is no tricuspid valve stenosis. PULMONIC VALVE The pulmonic valve is not well visualized. Doppler and Color Flow revealed no pulmonic valvular regur gitation. There is no pulmonic valvular stenosis. GREAT VESSELS The aortic root is normal in size. The ascending aorta is normal in size. The IVC was not visualized. PERICARDIAL EFFUSION There is no evidence of significant pericardial effusion. Critical Notification Critical Value: No <Conclusion> The left ventricle is normal size. The left ventricular systolic function is normal and the ejection fraction is within normal range. The Ejection Fraction is 50-55%. There is mild concentric left ventricular hypertrophy. There is no significant aortic valvular stenosis. Doppler and Color Flow revealed no significant aortic regurgitation. Doppler and Color-flow revealed mild mitral regurgitation. Doppler and Color Flow revealed mild tricuspid regurgitation. There is moderate-severe pulmonary hypertension. The PA pressure was estimated at 52 mmHg. Signed by : Adria Vicente MD Electronically Approved : 10/29/2018 15:43:19
--- NOTE | 2018-10-29 15:49 | NUR ---
The patient, ADRIENNE PHILLIPS, 88 y/o, M admitted by BARNEY GALEAS MD, was given written information regarding hospital policies, unit procedures and contact persons. Family took all belongings home.
[2018-10-29] MEDS: PANTOPRAZOLE 40 MG TABLET.DR. PO SCH (16:30)
[2018-10-29 19:16] VITALS: BP 166/72
--- NOTE | 2018-10-29 19:38 | NUR ---
Pt skin assessment notes a blister-like wound on patients left heel. Family states that he wears his "boots" all the time and that he has had this for awhile now. Wound is circular in shape and is black. Pt allowed staff to take a photo but was in extreme pain and would only let his leg be lifted so far. Picture of wound was limited. Heels offloaded in bed with wedge and P500 bed ordered. Will continue to monitor.
[2018-10-29] MEDS: KETOCONAZOLE 2% TOPICAL CREAM 15GM TUBE. TP SCH (21:57)
[2018-10-29] MEDS: CARVEDILOL 3.125 MG TABLET. PO SCH (21:57)
[2018-10-29 22:34] VITALS: BP 96/41
[2018-10-30 03:41] VITALS: BP 179/90
[2018-10-30 04:24] LABS: CALCIUM 9.7 mg/dL (8.5-10.1); CREATININE 4.1 mg/dL (0.7-1.3); GFR 16.8; POTASSIUM 3.8 mmol/L (3.5-5.1)
[2018-10-30 04:27] LABS: BASO % 0 % (0-3); EOS # 0.1 x10^3/uL (0.0-0.7); EOS % 2 % (0-3); HEMATOCRIT 28.9 % (39.0-53.0); HEMOGLOBIN 8.7 g/dL (13.0-17.5); LYMPH # 1.6 x10^3/uL (1.0-4.8); LYMPH % 22 % (24-48); MEAN CORPUSCULAR HEMOGLOBIN 28 pg (25-35); MEAN CORPUSCULAR HGB CONC 30 g/dL (31-37); MEAN CORPUSCULAR VOLUME 92 fL (79-100); MONO % 15 % (0-9); NEUT # 4.3 x10^3uL (1.8-7.7); NEUT % 61 % (31-73); PLATELET COUNT 366 x10^3/uL (140-400); RED BLOOD COUNT 3.15 x10^6/uL (4.30-5.70); RED CELL DISTRIBUTION WIDTH 17.4 % (11.5-14.5)
[2018-10-30] MEDS: IPRATRPIUM/ALBUTEROL 0.5/2.5MG 3 ML NEBU. NEB SCH ×3 (07:00→14:51)
[2018-10-30] MEDS ORDERED: IV NORMAL SALINE 1000ML BAG 1,000 ML IV PRN ×2 (07:00)
[2018-10-30] MEDS: PANTOPRAZOLE 40 MG TABLET.DR. PO SCH ×2 (07:30→11:32)
[2018-10-30] MEDS ORDERED: DIALYSIS PATIENT. MC PRN ×2 (08:30)
[2018-10-30] MEDS: KETOCONAZOLE 2% TOPICAL CREAM 15GM TUBE. TP SCH ×2 (09:00→21:19)
[2018-10-30] MEDS: POLYETHYLENE GLYCOL 3350 17 GM PACKET. PO SCH (09:00)
[2018-10-30] MEDS: DOCUSATE SODIUM 100 MG CAPSULE. PO SCH (09:00)
--- NOTE | 2018-10-30 09:43 | NUR ---
IP: Pt has a hx of + mrsa screens since 2014. Pt has one documented negative on 10/21/18. Pt to be in contact precautions until a second screen is obtained and verified.
--- NOTE | 2018-10-30 10:49 | PDOC ---
SUBJECTIVE ROS Seen on HD, No concerns or Complaints OBJECTIVE Vital Signs Vital Signs Date Time Temp Pulse Resp B/P (MAP) Pulse Ox O2 Delivery O2 Flow Rate FiO2 10/30/18 06:57 95 Nasal Cannula 3.0 10/30/18 03:41 98.5 80 18 179/90 (119) 98.5 I & 0 Intake and Output 10/30/18 07:00 Intake Total 880 ml Balance 880 ml Intake Oral 880 ml PHYSICAL EXAM Physical Exam GEN: NAD , awake and alert HEENT- On o2 by [place](at home as well) NECK:Supple CVS: RRR RESP: CTA, No Acc Muscle use GI: BS + ve, NO Bruit, Non Tender, : No CVA tenderness, No Suprapubic Tenderness, No Bianchi Neuro- at his baseline Skin - no rash Ext- Trace edema DIAGNOSIS/ASSESSMENT Assessment & Plan ESRD- On HD MWF Missed HD fri , dialysed yesterday HD today as per his scjedule Seen on HD, tolerating well,continue as ordered, 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 CXR with mild vascular congestion Malignant hypertension BP improved Card Managing Anemia- Stable Aranesp as per protocol Diabetes, II- as per primary COMMENT/RELEVANT DATA Meds Current Medications Medications (Trade) Dose Ordered Sig/Arlene Start Time Stop Time Status Last Admin Dose Admin Acetaminophen (Tylenol) 500 mg PRN Q6HRS PRN 10/29/18 13:45 Albuterol Sulfate (Ventolin Neb Soln) 2.5 mg PRN Q6HRS PRN 10/29/18 13:30 Albuterol/ Ipratropium (Duoneb) 3 ml RTQID 10/29/18 12:00 10/30/18 11:59 10/30/18 07:00 3 ML Allopurinol (Zyloprim) 100 mg DAILY 10/29/18 14:30 10/29/18 14:15 100 MG Aspirin (Children'S Aspirin) 81 mg DAILY 10/29/18 14:30 10/29/18 14:15 81 MG Bisacodyl (Dulcolax Tab) 5 mg PRN DAILY PRN 10/29/18 13:30 Capsaicin (Zostrix) 1 jimenez PRN BID PRN 10/29/18 14:00 Carvedilol (Coreg) 3.125 mg BIDWMEALS 10/29/18 17:00 10/29/18 21:57 3.125 MG Clonazepam (KlonoPIN) 0.25 mg PRN BID PRN 10/29/18 13:30 Docusate Sodium (Colace) 200 mg DAILY 10/29/18 14:30 Info (PHARMACY MONITORING -- do not chart) 1 each PRN DAILY PRN 10/30/18 08:30 UNV Ipratropium [place] (Atrovent) 0.5 mg 1X ONCE 10/29/18 07:30 10/29/18 07:31 DC 10/29/18 07:30 0.5 MG Ketoconazole (Nizoral 2% Topical) 1 jimenez BID 10/29/18 21:00 10/29/18 21:57 1 JIMENEZ Levofloxacin (Levaquin) 500 mg QODAY 10/29/18 14:30 10/29/18 14:15 500 MG Pantoprazole Sodium (Protonix) 40 mg BIDAC 10/29/18 16:30 Polyethylene Glycol (miraLAX PACKET) 17 gm DAILY 10/29/18 14:30 Sodium Chloride 1,000 ml @ 400 mls/hr Q2H30M PRN 10/30/18 07:00 10/30/18 18:59 Vitamin B Complex/ Vitamin C (Gianna-Woody) 1 tab DAILY 10/29/18 14:30 10/29/18 14:15 1 TAB Lab Laboratory Tests Test 10/29/18 12:11 10/29/18 19:00 10/29/18 21:05 10/30/18 03:00 Glucose (Fingerstick) 151 mg/dL (70-99) 176 mg/dL (70-99) Troponin I Quantitative 0.126 ng/mL (0.000-0.055) 0.127 ng/mL (0.000-0.055) White Blood Count 7.0 x10^3/uL (4.0-11.0) Red Blood Count 3.15 x10^6/uL (4.30-5.70) Hemoglobin 8.7 g/dL (13.0-17.5) Hematocrit 28.9 % (39.0-53.0) Mean Corpuscular Volume 92 fL (79-100) Mean Corpuscular Hemoglobin 28 pg (25-35) Mean Corpuscular Hemoglobin Concent 30 g/dL (31-37) Red Cell Distribution Width 17.4 % (11.5-14.5) Platelet Count 366 x10^3/uL (140-400) Neutrophils (%) (Auto) 61 % (31-73) Lymphocytes (%) (Auto) 22 % (24-48) Monocytes (%) (Auto) 15 % (0-9) Eosinophils (%) (Auto) 2 % (0-3) Basophils (%) (Auto) 0 % (0-3) Neutrophils # (Auto) 4.3 x10^3uL (1.8-7.7) Lymphocytes # (Auto) 1.6 x10^3/uL (1.0-4.8) Monocytes # (Auto) 1.0 x10^3/uL (0.0-1.1) Eosinophils # (Auto) 0.1 x10^3/uL (0.0-0.7) Basophils # (Auto) 0.0 x10^3/uL (0.0-0.2) Test 10/30/18 04:00 Sodium Level 139 mmol/L (136-145) Potassium Level 3.8 mmol/L (3.5-5.1) Chloride Level 100 mmol/L (98-107) Carbon Dioxide Level 29 mmol/L (21-32) Anion Gap 10 (6-14) Blood Urea Nitrogen 28 mg/dL (8-26) Creatinine 4.1 mg/dL (0.7-1.3) Estimated GFR (Cockcroft-Gault) 16.8 Glucose Level 187 mg/dL (70-99) Calcium Level 9.7 mg/dL (8.5-10.1) Results All relevant outside records, renal labs, imaging studies, telemetry/EKG's were reviewed. ANABELLE KENDALL MD Oct 30, 2018 10:49
[2018-10-30 11:00] VITALS: BP 104/31
[2018-10-30] MEDS: ASPIRIN CHEWABLE 81 MG TABLET. PO SCH (11:31)
--- NOTE | 2018-10-30 11:35 | PDOC ---
PROGRESS NOTES Chief Complaint Chief Complaint Respiratory distress secondary to volume overload imrpoved, still having copious secretions, no evidence of pneumonic process on x ray nor by history nor by lab work Resolved previous pneumonia on x-ray End-stage renal disease on hemodialysis with missed ultrafiltration yesterday Hypertension poorly controlled Decubitus ulcer over the left heel present on admission necrotic base History of gout currently with no flare Elevated troponin most likely secondary to volume overload Plan: Admit for hemodialysis Monitor respiratory status Consult cardiology for a mildly elevated troponin in the setting of renal dysfunction most likely needs a false-positive versus2 mild elevation of troponin secondary to demand ischemia Resume home medications VT prophylaxis with heparin Further recommendation based on clinical course CPt guafenesin History of Present Illness History of Present Illness no complaints, pleasantly demented Vitals Vitals Vital Signs Date Time Temp Pulse Resp B/P (MAP) Pulse Ox O2 Delivery O2 Flow Rate FiO2 10/30/18 11:00 96.5 79 18 104/31 (55) 96 Nasal Cannula 4.0 96.5 Physical Exam Lungs: Wheezing, Other Labs LABS Laboratory Tests Test 10/29/18 12:11 10/29/18 19:00 10/29/18 21:05 10/30/18 03:00 Glucose (Fingerstick) 151 mg/dL (70-99) 176 mg/dL (70-99) Troponin I Quantitative 0.126 ng/mL (0.000-0.055) 0.127 ng/mL (0.000-0.055) White Blood Count 7.0 x10^3/uL (4.0-11.0) Red Blood Count 3.15 x10^6/uL (4.30-5.70) Hemoglobin 8.7 g/dL (13.0-17.5) Hematocrit 28.9 % (39.0-53.0) Mean Corpuscular Volume 92 fL (79-100) Mean Corpuscular Hemoglobin 28 pg (25-35) Mean Corpuscular Hemoglobin Concent 30 g/dL (31-37) Red Cell Distribution Width 17.4 % (11.5-14.5) Platelet Count 366 x10^3/uL (140-400) Neutrophils (%) (Auto) 61 % (31-73) Lymphocytes (%) (Auto) 22 % (24-48) Monocytes (%) (Auto) 15 % (0-9) Eosinophils (%) (Auto) 2 % (0-3) Basophils (%) (Auto) 0 % (0-3) Neutrophils # (Auto) 4.3 x10^3uL (1.8-7.7) Lymphocytes # (Auto) 1.6 x10^3/uL (1.0-4.8) Monocytes # (Auto) 1.0 x10^3/uL (0.0-1.1) Eosinophils # (Auto) 0.1 x10^3/uL (0.0-0.7) Basophils # (Auto) 0.0 x10^3/uL (0.0-0.2) Test 10/30/18 04:00 10/30/18 11:07 Sodium Level 139 mmol/L (136-145) Potassium Level 3.8 mmol/L (3.5-5.1) Chloride Level 100 mmol/L (98-107) Carbon Dioxide Level 29 mmol/L (21-32) Anion Gap 10 (6-14) Blood Urea Nitrogen 28 mg/dL (8-26) Creatinine 4.1 mg/dL (0.7-1.3) Estimated GFR (Cockcroft-Gault) 16.8 Glucose Level 187 mg/dL (70-99) Calcium Level 9.7 mg/dL (8.5-10.1) Glucose (Fingerstick) 117 mg/dL (70-99) Assessment and Plan Assessmemt and Plan Problems Medical Problems: (1) COPD with acute exacerbation Status: Acute Comment Review of Relevant I have reviewed the following items genoveva (where applicable) has been applied. Labs Laboratory Tests Test 10/29/18 07:35 10/29/18 07:50 10/29/18 09:30 10/29/18 12:11 White Blood Count 12.3 x10^3/uL (4.0-11.0) Red Blood Count 3.59 x10^6/uL (4.30-5.70) Hemoglobin 9.8 g/dL (13.0-17.5) Hematocrit 33.1 % (39.0-53.0) Mean Corpuscular Volume 92 fL (79-100) Mean Corpuscular Hemoglobin 27 pg (25-35) Mean Corpuscular Hemoglobin Concent 30 g/dL (31-37) Red Cell Distribution Width 17.7 % (11.5-14.5) Platelet Count 433 x10^3/uL (140-400) Neutrophils (%) (Auto) 75 % (31-73) Lymphocytes (%) (Auto) 16 % (24-48) Monocytes (%) (Auto) 7 % (0-9) Eosinophils (%) (Auto) 1 % (0-3) Basophils (%) (Auto) 0 % (0-3) Neutrophils # (Auto) 9.2 x10^3uL (1.8-7.7) Lymphocytes # (Auto) 2.0 x10^3/uL (1.0-4.8) Monocytes # (Auto) 0.9 x10^3/uL (0.0-1.1) Eosinophils # (Auto) 0.2 x10^3/uL (0.0-0.7) Basophils # (Auto) 0.0 x10^3/uL (0.0-0.2) Sodium Level 141 mmol/L (136-145) Potassium Level 5.0 mmol/L (3.5-5.1) Chloride Level 101 mmol/L (98-107) Carbon Dioxide Level 25 mmol/L (21-32) Anion Gap 15 (6-14) Blood Urea Nitrogen 43 mg/dL (8-26) Creatinine 6.1 mg/dL (0.7-1.3) Estimated GFR (Cockcroft-Gault) 10.6 BUN/Creatinine Ratio 7 (6-20) Glucose Level 192 mg/dL (70-99) Lactic Acid Level 1.7 mmol/L (0.4-2.0) Calcium Level 10.4 mg/dL (8.5-10.1) Phosphorus Level 4.7 mg/dL (2.6-4.7) Magnesium Level 2.0 mg/dL (1.8-2.4) Total Bilirubin 0.4 mg/dL (0.2-1.0) Aspartate Amino Transf (AST/SGOT) 14 U/L (15-37) Alanine Aminotransferase (ALT/SGPT) 12 U/L (16-63) Alkaline Phosphatase 74 U/L (46-116) Troponin I Quantitative 0.102 ng/mL (0.000-0.055) [id number]-[id number]-Type Natriuretic Peptide > 97794 pg/mL (0-449) Total Protein 8.2 g/dL (6.4-8.2) Albumin 2.9 g/dL (3.4-5.0) Albumin/Globulin Ratio 0.5 (1.0-1.7) Triglycerides Level 86 mg/dL (0-150) Cholesterol Level 130 mg/dL (0-200) LDL Cholesterol, Calculated 80 mg/dL (0-100) VLDL Cholesterol, Calculated 17 mg/dL (0-40) Non-HDL Cholesterol Calculated 97 mg/dL (0-129) HDL Cholesterol 33 mg/dL (40-60) Cholesterol/HDL Ratio 3.9 Influenza Type A Antigen Negative (NEGATIVE) Influenza Type B Antigen Negative (NEGATIVE) O2 Saturation 92 % (92-99) Arterial Blood pH 7.39 (7.35-7.45) Arterial Blood pCO2 at Patient Temp 38 mmHg (35-46) Arterial Blood pO2 at Patient Temp 66 mmHg (65-108) Arterial Blood HCO3 23 mmol/L (21-28) Arterial Blood Base Excess -2 mmol/L (-3-3) FiO2 35 Glucose (Fingerstick) 151 mg/dL (70-99) Test 10/29/18 19:00 10/29/18 21:05 10/30/18 03:00 10/30/18 04:00 Troponin I Quantitative 0.126 ng/mL (0.000-0.055) 0.127 ng/mL (0.000-0.055) Glucose (Fingerstick) 176 mg/dL (70-99) White Blood Count 7.0 x10^3/uL (4.0-11.0) Red Blood Count 3.15 x10^6/uL (4.30-5.70) Hemoglobin 8.7 g/dL (13.0-17.5) Hematocrit 28.9 % (39.0-53.0) Mean Corpuscular Volume 92 fL (79-100) Mean Corpuscular Hemoglobin 28 pg (25-35) Mean Corpuscular Hemoglobin Concent 30 g/dL (31-37) Red Cell Distribution Width 17.4 % (11.5-14.5) Platelet Count 366 x10^3/uL (140-400) Neutrophils (%) (Auto) 61 % (31-73) Lymphocytes (%) (Auto) 22 % (24-48) Monocytes (%) (Auto) 15 % (0-9) Eosinophils (%) (Auto) 2 % (0-3) Basophils (%) (Auto) 0 % (0-3) Neutrophils # (Auto) 4.3 x10^3uL (1.8-7.7) Lymphocytes # (Auto) 1.6 x10^3/uL (1.0-4.8) Monocytes # (Auto) 1.0 x10^3/uL (0.0-1.1) Eosinophils # (Auto) 0.1 x10^3/uL (0.0-0.7) Basophils # (Auto) 0.0 x10^3/uL (0.0-0.2) Sodium Level 139 mmol/L (136-145) Potassium Level 3.8 mmol/L (3.5-5.1) Chloride Level 100 mmol/L (98-107) Carbon Dioxide Level 29 mmol/L (21-32) Anion Gap 10 (6-14) Blood Urea Nitrogen 28 mg/dL (8-26) Creatinine 4.1 mg/dL (0.7-1.3) Estimated GFR (Cockcroft-Gault) 16.8 Glucose Level 187 mg/dL (70-99) Calcium Level 9.7 mg/dL (8.5-10.1) Test 10/30/18 11:07 Glucose (Fingerstick) 117 mg/dL (70-99) Laboratory Tests Test 10/29/18 12:11 10/29/18 19:00 10/29/18 21:05 10/30/18 03:00 Glucose (Fingerstick) 151 mg/dL (70-99) 176 mg/dL (70-99) Troponin I Quantitative 0.126 ng/mL (0.000-0.055) 0.127 ng/mL (0.000-0.055) White Blood Count 7.0 x10^3/uL (4.0-11.0) Red Blood Count 3.15 x10^6/uL (4.30-5.70) Hemoglobin 8.7 g/dL (13.0-17.5) Hematocrit 28.9 % (39.0-53.0) Mean Corpuscular Volume 92 fL (79-100) Mean Corpuscular Hemoglobin 28 pg (25-35) Mean Corpuscular Hemoglobin Concent 30 g/dL (31-37) Red Cell Distribution Width 17.4 % (11.5-14.5) Platelet Count 366 x10^3/uL (140-400) Neutrophils (%) (Auto) 61 % (31-73) Lymphocytes (%) (Auto) 22 % (24-48) Monocytes (%) (Auto) 15 % (0-9) Eosinophils (%) (Auto) 2 % (0-3) Basophils (%) (Auto) 0 % (0-3) Neutrophils # (Auto) 4.3 x10^3uL (1.8-7.7) Lymphocytes # (Auto) 1.6 x10^3/uL (1.0-4.8) Monocytes # (Auto) 1.0 x10^3/uL (0.0-1.1) Eosinophils # (Auto) 0.1 x10^3/uL (0.0-0.7) Basophils # (Auto) 0.0 x10^3/uL (0.0-0.2) Test 10/30/18 04:00 10/30/18 11:07 Sodium Level 139 mmol/L (136-145) Potassium Level 3.8 mmol/L (3.5-5.1) Chloride Level 100 mmol/L (98-107) Carbon Dioxide Level 29 mmol/L (21-32) Anion Gap 10 (6-14) Blood Urea Nitrogen 28 mg/dL (8-26) Creatinine 4.1 mg/dL (0.7-1.3) Estimated GFR (Cockcroft-Gault) 16.8 Glucose Level 187 mg/dL (70-99) Calcium Level 9.7 mg/dL (8.5-10.1) Glucose (Fingerstick) 117 mg/dL (70-99) Microbiology 10/29/18 Blood Culture - Preliminary, Resulted NO GROWTH AFTER 1 DAY Medications Current Medications Ipratropium [place] (Atrovent) 0.5 mg 1X ONCE NEB Last administered on at 07:30; Start 10/29/18 at 07:30; Stop 10/29/18 at 07:31; Status DC Albuterol Sulfate (Ventolin Neb Soln) 10 mg 1X ONCE CONT NEB Last administered on 10/29/18at 08:59; Start 10/29/18 at 07:30; Stop 10/29/18 at 07:31 ; Status DC Acetaminophen (Tylenol) 650 mg PRN Q4HRS PRN PO FEVER; Start 10/29/18 at 09:45 ; Stop 10/30/18 at 09:44; Status DC Albuterol/ Ipratropium (Duoneb) 3 ml RTQID NEB Last administered on 10/30/18at 07:00; Start 10/29/18 at 12:00; Stop 10/30/18 at 11:59 Albuterol Sulfate (Ventolin Neb Soln) 2.5 mg PRN Q6HRS PRN INH SHORTNESS OF BREATH; Start 10/29/18 at 13:30 Allopurinol (Zyloprim) 100 mg DAILY PO Last administered on 10/29/18at 14:15; Start 10/29/18 at 14:30 Aspirin (Children'S Aspirin) 81 mg DAILY PO Last administered on 10/29/18at 14: 15; Start 10/29/18 at 14:30 Bisacodyl (Dulcolax Tab) 5 mg PRN DAILY PRN PO CONSTIPATION; Start 10/29/18 at 13:30 Carvedilol (Coreg) 3.125 mg BIDWMEALS PO Last administered on 10/29/18at 21:57; Start 10/29/18 at 17:00 Clonazepam (KlonoPIN) 0.25 mg PRN BID PRN PO ANXIETY / AGITATION; Start at 13:30 Docusate Sodium (Colace) 200 mg DAILY PO ; Start 10/29/18 at 14:30 Vitamin B Complex/ Vitamin C (Gianna-Woody) 1 tab DAILY PO Last administered on at 14:15; Start 10/29/18 at 14:30 Ketoconazole (Nizoral 2% Topical) 1 rohit BID TP Last administered on 10/29/18at 21:57; Start 10/29/18 at 21:00 Acetaminophen (Tylenol) 500 mg PRN Q6HRS PRN PO MILD PAIN / TEMP; Start at 13:45 Capsaicin (Zostrix) 1 rohit PRN BID PRN TP PAIN; Start 10/29/18 at 14:00 Levofloxacin (Levaquin) 500 mg QODAY PO Last administered on 10/29/18at 14:15; Start 10/29/18 at 14:30 Pantoprazole Sodium (Protonix) 40 mg BIDAC PO ; Start 10/29/18 at 16:30 Polyethylene Glycol (miraLAX PACKET) 17 gm DAILY PO ; Start 10/29/18 at 14:30 Info (PHARMACY MONITORING -- do not chart) 1 each PRN DAILY PRN MC SEE COMMENTS ; Start 10/29/18 at 15:00 Info (PHARMACY MONITORING -- do not chart) 1 each PRN DAILY PRN MC SEE COMMENTS ; Start 10/29/18 at 15:00; Stop 10/29/18 at 15:08; Status DC Sodium Chloride 1,000 ml @ 1,000 mls/hr Q1H PRN IV hypotension; Start 10/30/18 at 07:00; Stop 10/30/18 at 12:59 Sodium Chloride 1,000 ml @ 400 mls/hr Q2H30M PRN IV PATENCY; Start 10/30/18 at 07:00; Stop 10/30/18 at 18:59 Info (PHARMACY MONITORING -- do not chart) 1 each PRN DAILY PRN MC SEE COMMENTS ; Start 10/30/18 at 08:30; Status UNV Info (PHARMACY MONITORING -- do not chart) 1 each PRN DAILY PRN MC SEE COMMENTS ; Start 10/30/18 at 08:30; Status UNV Darbepoetin Jatinder (Aranesp) 60 mcg WEEKLYHS SQ ; Start 10/30/18 at 21:00 Active Scripts Active Coreg (Carvedilol) 3.125 Mg Tablet 3.125 Mg PO BIDWMEALS 30 Days Proair Hfa Inhaler (Albuterol Sulfate) 8.5 Gm Hfa.aer.ad 1 Puff INH PRN Q6HRS PRN 14 Days Levaquin (Levofloxacin) 500 Mg Tablet 0.5 Tab PO QODAY Reported Miralax (Polyethylene Glycol 3350) 17 Gm Powd.pack 1 Pkt PO DAILY Capsaicin 60 Gm Cream..g. 60 Gm TP PRN BID PRN Acetaminophen 500 Mg Tablet 500 Mg PO PRN BID PRN Dulcolax (Bisacodyl) 5 Mg Tablet.dr 5 Mg PO PRN DAILY PRN Ketoconazole 15 Gm Cream..g. 1 Rohit TP BID Clonazepam 0.5 Mg Tablet 0.25 Mg PO PRN BID PRN Allopurinol 100 Mg Tablet 1 Tab PO DAILY Docusate Sodium 100 Mg Capsule 2 Cap PO DAILY Nephro-Woody Tablet (Folic Acid/Vitamin B Comp W-C) 0.8 Mg Tablet 1 Tab PO DAILY Aspirin 81 Mg Tab.chew 1 Tab PO DAILY Omeprazole 20 Mg Capsule. 1 Cap PO BID Vitals/I & O Vital Sign - Last 24 Hours 10/29/18 10/29/18 10/29/18 10/29/18 12:28 15:10 19:16 19:43 Temp 98.0 98.0 98.0 98.0 Pulse 79 84 Resp 18 18 B/P (MAP) 171/82 (111) 166/72 (103) Pulse Ox 100 100 89 100 O2 Delivery Nasal Cannula Nasal Cannula Nasal Cannula Nasal Cannula O2 Flow Rate 4.0 4.0 4.0 3.0 10/29/18 10/29/18 10/29/18 10/30/18 20:00 21:57 22:34 03:41 Temp 98.1 98.5 98.1 98.5 Pulse 84 77 80 Resp 18 18 B/P (MAP) 166/72 96/41 (59) 179/90 (119) Pulse Ox 100 100 O2 Delivery Nasal Cannula Nasal Cannula Nasal Cannula O2 Flow Rate 4.0 4.0 4.0 10/30/18 10/30/18 06:57 11:00 Temp 96.5 96.5 Pulse 79 Resp 18 B/P (MAP) 104/31 (55) Pulse Ox 95 96 O2 Delivery Nasal Cannula Nasal Cannula O2 Flow Rate 3.0 4.0 Intake and Output 10/29/18 10/29/18 10/30/18 15:00 23:00 07:00 Intake Total 200 ml 680 ml Balance 200 ml 680 ml BARNEY GALEAS MD Oct 30, 2018 11:35
--- NOTE | 2018-10-30 11:37 | NUR ---
SS following up with discharge planning. SS reviewed pt chart. Pt is from home with spouse and currently requiring oxygen. Pt has outpatient dialysis scheduled on Friday, Friday, and Friday in the community. No discharge needs noted at this time. SS will continue to follow for pending discharge needs.
[2018-10-30] MEDS: ALLOPURINOL 100 MG TABLET. PO SCH (11:38)
[2018-10-30] MEDS: CARVEDILOL 3.125 MG TABLET. PO SCH (11:38)
[2018-10-30] MEDS: FOLIC/VIT B COMP W-C (RENAL) TABLET. PO SCH (11:39)
--- NOTE | 2018-10-30 12:41 | NUR ---
Held protonix because it cannot be crushed. Patient is requiring crushed medications. Will ask MD for IV for now.
--- NOTE | 2018-10-30 14:20 | PDOC ---
CARDIO Progress Notes Date and Time Date of Service 10/30/2018 Time of Evaluation 1340 Vitals Vitals Vital Signs Date Time Temp Pulse Resp B/P (MAP) Pulse Ox O2 Delivery O2 Flow Rate FiO2 10/30/18 11:49 97 Nasal Cannula 3.0 10/30/18 11:38 82 145/73 10/30/18 11:00 96.5 18 96.5 Weight Weight [ ] Input and Output Intake and Output Intake and Output 10/30/18 07:00 Intake Total 880 ml Balance 880 ml Intake Oral 880 ml Laboratory Labs Laboratory Tests Test 10/29/18 19:00 10/29/18 21:05 10/30/18 03:00 10/30/18 04:00 Troponin I Quantitative 0.126 ng/mL (0.000-0.055) 0.127 ng/mL (0.000-0.055) Glucose (Fingerstick) 176 mg/dL (70-99) White Blood Count 7.0 x10^3/uL (4.0-11.0) Red Blood Count 3.15 x10^6/uL (4.30-5.70) Hemoglobin 8.7 g/dL (13.0-17.5) Hematocrit 28.9 % (39.0-53.0) Mean Corpuscular Volume 92 fL (79-100) Mean Corpuscular Hemoglobin 28 pg (25-35) Mean Corpuscular Hemoglobin Concent 30 g/dL (31-37) Red Cell Distribution Width 17.4 % (11.5-14.5) Platelet Count 366 x10^3/uL (140-400) Neutrophils (%) (Auto) 61 % (31-73) Lymphocytes (%) (Auto) 22 % (24-48) Monocytes (%) (Auto) 15 % (0-9) Eosinophils (%) (Auto) 2 % (0-3) Basophils (%) (Auto) 0 % (0-3) Neutrophils # (Auto) 4.3 x10^3uL (1.8-7.7) Lymphocytes # (Auto) 1.6 x10^3/uL (1.0-4.8) Monocytes # (Auto) 1.0 x10^3/uL (0.0-1.1) Eosinophils # (Auto) 0.1 x10^3/uL (0.0-0.7) Basophils # (Auto) 0.0 x10^3/uL (0.0-0.2) Sodium Level 139 mmol/L (136-145) Potassium Level 3.8 mmol/L (3.5-5.1) Chloride Level 100 mmol/L (98-107) Carbon Dioxide Level 29 mmol/L (21-32) Anion Gap 10 (6-14) Blood Urea Nitrogen 28 mg/dL (8-26) Creatinine 4.1 mg/dL (0.7-1.3) Estimated GFR (Cockcroft-Gault) 16.8 Glucose Level 187 mg/dL (70-99) Calcium Level 9.7 mg/dL (8.5-10.1) Test 10/30/18 11:07 Glucose (Fingerstick) 117 mg/dL (70-99) Microbiology Micro Microbiology 10/29/18 Blood Culture - Preliminary, Resulted NO GROWTH AFTER 1 DAY Physical Exam HEENT: Neck Supple W Full Motion Chest: Symmetric LUNGS: Other (upper rhonchi with mild diffuse wheeze) Heart: S1S2, RRR (SR) Abdomen: Soft N/T Extremities: No Calf Tenderness, Other (trace LE) Neurology: alert, follow commands, confused (he thinks he is at home) Assessment Assessment 1. Acute hypoxic respiratory failure: aspiration? with CHF and possible PNA. 2. Acute on chronic systolic CHF; EF better from 30 to 50% 3. ESRD on HD. Missed HD Friday 4. Accelerated HTN: now controlled 5. Mild troponin elevation: peaked at 0.12, possibly demand mediated, type 2 with missed HD and CHF 6. DM2/HLP 7. NSVT: this afternoon 8. debility/bed bound Recommendations 1. K and Mg, replace if low. 2. check for aspiration. Swallow eval 3. Fluid offloading via HD 4. With age, debility and possibly dementia, goals of care needs to be addressed moving forward conservative vs aggressive measures. Consider palliative consult. 5. DC coreg and will place on toprol for better NSVT suppression. 6. Depending on family intention in regards to goals of care, outpt stress test is a consideration. No known prior ischemic workup. 7. encouraged to follow up with cardiology in [address] Vicenet. MARIA DEL CARMEN FUCHS APRN Oct 30, 2018 14:20
[2018-10-30 14:30] VITALS: BP 112/66
[2018-10-30] MEDS: PANTOPRAZOLE IV PUSH 40 MG VIAL. IVP SCH (17:07)
--- NOTE | 2018-10-30 17:10 | NUR ---
Bedside Swallow evaluation completed. Please refer to full evaluation for additional information. Pt spitting secretions habitually and w/ occasional wet phonation on own secretions prior to PO intake. Impressions: Mild oropharyngeal dysphagia. Pt spits own secretions prior to PO and throughout visit during breaks from PO trials. No overt s/s aspiration noted w/ trials of puree and thin liquids and wet phonation observed w/ own secretions improved and/or eliminated w/ PO trials. Pt appears at low risk of aspiration of modified diet and thin liquids. Possible aspiration of own secretions. Recommendations: Continue dysphagia I/puree diet and thin liquids/straws ok and more efficient for pt. ST f/u for dysphagia.
--- NOTE | 2018-10-30 17:22 | NUR ---
Wound Care: Consult to eval and treat for wound to L plantar heel (see detailed assessment). Wound is an unstageable pressure ulcer d/t stable dry eschar. Painted with betadine and covered with foam dressing. heels floated on 2 purple wedges. No open areas noted on head to toe assessment. Pt on P500 mattress. Educated present at bedside regarding floating heels, and turning every 2 hours. She stated understanding. Plan to follow up 11/06/18
[2018-10-30 19:00] VITALS: BP 157/75
[2018-10-30] MEDS: ALBUTEROL SULFATE 2.5 MG/3 ML NEBU. INH PRN (20:49)
[2018-10-30] MEDS: LACTOBACILLUS RHAMNOSUS GG 1 CAPSULE. PO SCH (21:00)
[2018-10-30] MEDS ORDERED: DARBEPOETIN ALFA 60 MCG/0.3 ML DISP.SYRIN. SQ SCH (21:00)
[2018-10-30] MEDS: ATORVASTATIN CALCIUM 10 MG TABLET. PO SCH (21:19)
[2018-10-30 22:37] VITALS: BP 151/80
[2018-10-31 03:10] VITALS: BP 161/85
[2018-10-31 07:20] VITALS: BP 187/88
[2018-10-31] MEDS: ALBUTEROL SULFATE 2.5 MG/3 ML NEBU. INH PRN ×2 (07:32→16:58)
[2018-10-31] MEDS: POLYETHYLENE GLYCOL 3350 17 GM PACKET. PO SCH (08:29)
[2018-10-31] MEDS: PANTOPRAZOLE IV PUSH 40 MG VIAL. IVP SCH ×2 (08:29→17:51)
[2018-10-31] MEDS: FOLIC/VIT B COMP W-C (RENAL) TABLET. PO SCH (08:29)
[2018-10-31] MEDS: METOPROLOL SUCC 24HR ER 50 MG TAB.ER.24H. PO SCH (08:29)
[2018-10-31] MEDS: DOCUSATE SODIUM 100 MG CAPSULE. PO SCH (08:30)
[2018-10-31] MEDS: ALLOPURINOL 100 MG TABLET. PO SCH (08:30)
[2018-10-31] MEDS: LACTOBACILLUS RHAMNOSUS GG 1 CAPSULE. PO SCH ×2 (08:30→21:06)
[2018-10-31] MEDS: ASPIRIN CHEWABLE 81 MG TABLET. PO SCH (08:30)
[2018-10-31] MEDS: KETOCONAZOLE 2% TOPICAL CREAM 15GM TUBE. TP SCH ×2 (08:31→21:06)
[2018-10-31 11:55] VITALS: BP 136/67
--- NOTE | 2018-10-31 13:26 | PDOC ---
SUBJECTIVE ROS Follow-up for ESRD on hemodialysis Friday Patient's family is at bedside and denies any new complaints currently. Patient unable to voice complaints OBJECTIVE Vital Signs Vital Signs Date Time Temp Pulse Resp B/P (MAP) Pulse Ox O2 Delivery O2 Flow Rate FiO2 10/31/18 11:55 98.2 77 16 136/67 (90) 100 Nasal Cannula 2.0 98.2 I & 0 Intake and Output 10/31/18 06:59 Intake Total 600 ml Output Total 0 ml Balance 600 ml Intake Oral 600 ml Output Urine Total 0 ml PHYSICAL EXAM Physical Exam GEN: Awake, Oriented x ?, In no visible distress EYES: Vision Unchanged, Conjunctiva Normal EN: No EN Drainage, Mucous Membranes moist NECK: no JVD, no JVP, Supple, no Thyromegaly CVS: S1S2, soft Murmur, No Gallop, No Rub,no Edema RESP: no Rales, occ Rhonchi,no Acc. Muscle Use GI: BS + ve, NO Bruit, Non Tender, Non Distended : no CVA tenderness, no Suprapubic Tenderness DIAGNOSIS/ASSESSMENT Assessment & Plan ESRD: Current fluid and E-lyte status does not necessitate emergent need for dialysis. Will re-evaluate for dialysis in the am and continue on MWF schedule. ANEMIA; Aranap as ordered, Transfuse with next HD as needed HTN: Current BP meds as reviewed. See orders for changes. BONE & MINERAL: Follow phosphorus levels and alter binder regimen as needed Magnesium and potassium now resolved Interval fluid overload: Clinically appears to be much improved. May need challenge of estimated dry weight on Friday as tolerated Discussed Plan of Care with family at bedside COMMENT/RELEVANT DATA Meds Current Medications Medications (Trade) Dose Ordered Sig/Arlene Start Time Stop Time Status Last Admin Dose Admin Acetaminophen (Tylenol) 500 mg PRN Q6HRS PRN 10/29/18 13:45 Albuterol Sulfate (Ventolin Neb Soln) 2.5 mg PRN Q6HRS PRN 10/29/18 13:30 10/31/18 07:32 2.5 MG Albuterol/ Ipratropium (Duoneb) 3 ml RTQID 10/29/18 12:00 10/30/18 11:59 DC 10/30/18 14:51 3 ML Allopurinol (Zyloprim) 100 mg DAILY 10/29/18 14:30 10/31/18 08:30 100 MG Aspirin (Children'S Aspirin) 81 mg DAILY 10/29/18 14:30 10/31/18 08:30 81 MG Atorvastatin Calcium (Lipitor) 10 mg QHS 10/30/18 21:00 10/30/18 21:19 10 MG Bisacodyl (Dulcolax Tab) 5 mg PRN DAILY PRN 10/29/18 13:30 Capsaicin (Zostrix) 1 jimenez PRN BID PRN 10/29/18 14:00 Carvedilol (Coreg) 3.125 mg BIDWMEALS 10/29/18 17:00 10/30/18 14:18 DC 10/30/18 11:38 3.125 MG Clonazepam (KlonoPIN) 0.25 mg PRN BID PRN 10/29/18 13:30 10/30/18 21:19 0.25 MG Darbepoetin Jatinder (Aranesp) 60 mcg WEEKLYHS 10/30/18 21:00 10/30/18 21:19 60 MCG Docusate Sodium (Colace) 200 mg DAILY 10/29/18 14:30 10/31/18 08:30 200 MG Info (PHARMACY MONITORING -- do not chart) 1 each PRN DAILY PRN 10/30/18 08:30 UNV Ipratropium [place] (Atrovent) 0.5 mg 1X ONCE 10/29/18 07:30 10/29/18 07:31 DC 10/29/18 07:30 0.5 MG Ketoconazole (Nizoral 2% Topical) 1 jimenez BID 10/29/18 21:00 10/31/18 08:31 1 JIMENEZ Lactobacillus Rhamnosus (Culturelle) 1 cap BID 10/30/18 21:00 10/31/18 08:30 1 CAP Levofloxacin (Levaquin) 500 mg QODAY 10/29/18 14:30 10/31/18 08:30 500 MG Metoprolol Succinate (Toprol Xl) 50 mg DAILY 10/31/18 09:00 10/31/18 08:29 50 MG Pantoprazole Sodium (PROTONIX VIAL for IV PUSH) 40 mg BIDAC 10/30/18 16:30 10/31/18 08:29 40 MG Pantoprazole Sodium (Protonix) 40 mg BIDAC 10/29/18 16:30 10/30/18 12:51 DC Polyethylene Glycol (miraLAX PACKET) 17 gm DAILY 10/29/18 14:30 10/31/18 08:29 17 GM Sodium Chloride 1,000 ml @ 400 mls/hr Q2H30M PRN 10/30/18 07:00 10/30/18 18:59 DC Vitamin B Complex/ Vitamin C (Gianna-Woody) 1 tab DAILY 10/29/18 14:30 10/31/18 08:29 1 TAB Lab Laboratory Tests Test 10/30/18 14:40 10/30/18 17:05 10/30/18 20:28 10/31/18 07:41 Potassium Level 3.7 mmol/L (3.5-5.1) Magnesium Level 2.1 mg/dL (1.8-2.4) Glucose (Fingerstick) 191 mg/dL (70-99) 280 mg/dL (70-99) 146 mg/dL (70-99) Test 10/31/18 11:48 Glucose (Fingerstick) 232 mg/dL (70-99) Results All relevant outside records, renal labs, imaging studies, telemetry/EKG's were reviewed. SHI SUÁREZ MD Oct 31, 2018 13:26
--- NOTE | 2018-10-31 15:07 | PDOC ---
PROGRESS NOTES Chief Complaint Chief Complaint Respiratory distress secondary to volume overload imrpoved, still having copious secretions, no evidence of pneumonic process on x ray nor by history nor by lab work Resolved previous pneumonia on x-ray End-stage renal disease on hemodialysis with missed ultrafiltration yesterday Hypertension poorly controlled Decubitus ulcer over the left heel present on admission necrotic base History of gout currently with no flare Elevated troponin most likely secondary to volume overload Plan: Admit for hemodialysis Monitor respiratory status Consult cardiology for a mildly elevated troponin in the setting of renal dysfunction most likely needs a false-positive versus2 mild elevation of troponin secondary to demand ischemia Resume home medications [place] prophylaxis with heparin Further recommendation based on clinical course CPt guafenesin History of Present Illness History of Present Illness Patient seems to be in no apparent distress. Family members are concerned regarding episodes yesterday evening of dyspnea at rest. I didn't his chronically ill appearing no concerns voiced during my encounter. 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 Reassurance has been provided to the family members at bedside and over the phone Vitals Vitals Vital Signs Date Time Temp Pulse Resp B/P (MAP) Pulse Ox O2 Delivery O2 Flow Rate FiO2 10/31/18 11:55 98.2 77 16 136/67 (90) 100 Nasal Cannula 2.0 98.2 Physical Exam General: Alert, No acute distress Heart: Regular rate, Normal S1, Normal S2, Other (systolic murmur no radiation to the carotids) Lungs: Wheezing, Other Labs LABS Laboratory Tests Test 10/30/18 17:05 10/30/18 18:00 10/30/18 20:28 10/31/18 07:41 Glucose (Fingerstick) 191 mg/dL (70-99) 280 mg/dL (70-99) 146 mg/dL (70-99) Nasal Screen MRSA (PCR) Positive (Negative) Test 10/31/18 11:48 Glucose (Fingerstick) 232 mg/dL (70-99) Review of Systems Review of Systems Pertinent as per history of present illness otherwise 14 point review of system is negative Assessment and Plan Assessmemt and Plan Problems Medical Problems: (1) COPD with acute exacerbation Status: Acute Comment Review of Relevant I have reviewed the following items genoveva (where applicable) has been applied. Labs Laboratory Tests Test 10/29/18 19:00 10/29/18 21:05 10/30/18 03:00 10/30/18 04:00 Troponin I Quantitative 0.126 ng/mL (0.000-0.055) 0.127 ng/mL (0.000-0.055) Glucose (Fingerstick) 176 mg/dL (70-99) White Blood Count 7.0 x10^3/uL (4.0-11.0) Red Blood Count 3.15 x10^6/uL (4.30-5.70) Hemoglobin 8.7 g/dL (13.0-17.5) Hematocrit 28.9 % (39.0-53.0) Mean Corpuscular Volume 92 fL (79-100) Mean Corpuscular Hemoglobin 28 pg (25-35) Mean Corpuscular Hemoglobin Concent 30 g/dL (31-37) Red Cell Distribution Width 17.4 % (11.5-14.5) Platelet Count 366 x10^3/uL (140-400) Neutrophils (%) (Auto) 61 % (31-73) Lymphocytes (%) (Auto) 22 % (24-48) Monocytes (%) (Auto) 15 % (0-9) Eosinophils (%) (Auto) 2 % (0-3) Basophils (%) (Auto) 0 % (0-3) Neutrophils # (Auto) 4.3 x10^3uL (1.8-7.7) Lymphocytes # (Auto) 1.6 x10^3/uL (1.0-4.8) Monocytes # (Auto) 1.0 x10^3/uL (0.0-1.1) Eosinophils # (Auto) 0.1 x10^3/uL (0.0-0.7) Basophils # (Auto) 0.0 x10^3/uL (0.0-0.2) Sodium Level 139 mmol/L (136-145) Potassium Level 3.8 mmol/L (3.5-5.1) Chloride Level 100 mmol/L (98-107) Carbon Dioxide Level 29 mmol/L (21-32) Anion Gap 10 (6-14) Blood Urea Nitrogen 28 mg/dL (8-26) Creatinine 4.1 mg/dL (0.7-1.3) Estimated GFR (Cockcroft-Gault) 16.8 Glucose Level 187 mg/dL (70-99) Calcium Level 9.7 mg/dL (8.5-10.1) Test 10/30/18 11:07 10/30/18 14:40 10/30/18 17:05 10/30/18 18:00 Glucose (Fingerstick) 117 mg/dL (70-99) 191 mg/dL (70-99) Potassium Level 3.7 mmol/L (3.5-5.1) Magnesium Level 2.1 mg/dL (1.8-2.4) Nasal Screen MRSA (PCR) Positive (Negative) Test 10/30/18 20:28 10/31/18 07:41 10/31/18 11:48 Glucose (Fingerstick) 280 mg/dL (70-99) 146 mg/dL (70-99) 232 mg/dL (70-99) Laboratory Tests Test 10/30/18 17:05 10/30/18 18:00 10/30/18 20:28 10/31/18 07:41 Glucose (Fingerstick) 191 mg/dL (70-99) 280 mg/dL (70-99) 146 mg/dL (70-99) Nasal Screen MRSA (PCR) Positive (Negative) Test 10/31/18 11:48 Glucose (Fingerstick) 232 mg/dL (70-99) Microbiology 10/29/18 Blood Culture - Preliminary, Resulted NO GROWTH AFTER 2 DAYS Medications Current Medications Ipratropium [place] (Atrovent) 0.5 mg 1X ONCE NEB Last administered on at 07:30; Start 10/29/18 at 07:30; Stop 10/29/18 at 07:31; Status DC Albuterol Sulfate (Ventolin Neb Soln) 10 mg 1X ONCE CONT NEB Last administered on 10/29/18at 08:59; Start 10/29/18 at 07:30; Stop 10/29/18 at 07:31 ; Status DC Acetaminophen (Tylenol) 650 mg PRN Q4HRS PRN PO FEVER; Start 10/29/18 at 09:45 ; Stop 10/30/18 at 09:44; Status DC Albuterol/ Ipratropium (Duoneb) 3 ml RTQID NEB Last administered on 10/30/18at 14:51; Start 10/29/18 at 12:00; Stop 10/30/18 at 11:59; Status DC Albuterol Sulfate (Ventolin Neb Soln) 2.5 mg PRN Q6HRS PRN INH SHORTNESS OF BREATH Last administered on 10/31/18 07:32; Start 10/29/18 at 13:30 Allopurinol (Zyloprim) 100 mg DAILY PO Last administered on 10/31/18 08:30; Start 10/29/18 at 14:30 Aspirin (Children'S Aspirin) 81 mg DAILY PO Last administered on 10/31/18 08: 30; Start 10/29/18 at 14:30 Bisacodyl (Dulcolax Tab) 5 mg PRN DAILY PRN PO CONSTIPATION; Start 10/29/18 at 13:30 Carvedilol (Coreg) 3.125 mg BIDWMEALS PO Last administered on 10/30/18 11:38; Start 10/29/18 at 17:00; Stop 10/30/18 at 14:18; Status DC Clonazepam (KlonoPIN) 0.25 mg PRN BID PRN PO ANXIETY / AGITATION Last administered on 10/30/18 21:19; Start 10/29/18 at 13:30 Docusate Sodium (Colace) 200 mg DAILY PO Last administered on 10/31/18 08:30; Start 10/29/18 at 14:30 Vitamin B Complex/ Vitamin C (Gianna-Woody) 1 tab DAILY PO Last administered on 08:29; Start 10/29/18 at 14:30 Ketoconazole (Nizoral 2% Topical) 1 rohit BID TP Last administered on 10/31/18 08:31; Start 10/29/18 at 21:00 Acetaminophen (Tylenol) 500 mg PRN Q6HRS PRN PO MILD PAIN / TEMP; Start at 13:45 Capsaicin (Zostrix) 1 rohit PRN BID PRN TP PAIN; Start 10/29/18 at 14:00 Levofloxacin (Levaquin) 500 mg QODAY PO Last administered on 10/31/18 08:30; Start 10/29/18 at 14:30 Pantoprazole Sodium (Protonix) 40 mg BIDAC PO ; Start 10/29/18 at 16:30; Stop at 12:51; Status DC Polyethylene Glycol (miraLAX PACKET) 17 gm DAILY PO Last administered on at 08:29; Start 10/29/18 at 14:30 Info (PHARMACY MONITORING -- do not chart) 1 each PRN DAILY PRN MC SEE COMMENTS ; Start 10/29/18 at 15:00 Info (PHARMACY MONITORING -- do not chart) 1 each PRN DAILY PRN MC SEE COMMENTS ; Start 10/29/18 at 15:00; Stop 10/29/18 at 15:08; Status DC Sodium Chloride 1,000 ml @ 1,000 mls/hr Q1H PRN IV hypotension; Start 10/30/18 at 07:00; Stop 10/30/18 at 12:59; Status DC Sodium Chloride 1,000 ml @ 400 mls/hr Q2H30M PRN IV PATENCY; Start 10/30/18 at 07:00; Stop 10/30/18 at 18:59; Status DC Info (PHARMACY MONITORING -- do not chart) 1 each PRN DAILY PRN MC SEE COMMENTS ; Start 10/30/18 at 08:30; Status UNV Info (PHARMACY MONITORING -- do not chart) 1 each PRN DAILY PRN MC SEE COMMENTS ; Start 10/30/18 at 08:30; Status UNV Darbepoetin Jatinder (Aranesp) 60 mcg WEEKLYHS SQ Last administered on 10/30/18at 21 :19; Start 10/30/18 at 21:00 Pantoprazole Sodium (PROTONIX VIAL for IV PUSH) 40 mg BIDAC IVP Last administered on 10/31/18at 08:29; Start 10/30/18 at 16:30 Metoprolol Succinate (Toprol Xl) 50 mg DAILY PO Last administered on 10/31/18at 08:29; Start 10/31/18 at 09:00 Atorvastatin Calcium (Lipitor) 10 mg QHS PO Last administered on 10/30/18at 21: 19; Start 10/30/18 at 21:00 Lactobacillus Rhamnosus (Culturelle) 1 cap BID PO Last administered on at 08:30; Start 10/30/18 at 21:00 Active Scripts Active Coreg (Carvedilol) 3.125 Mg Tablet 3.125 Mg PO BIDWMEALS 30 Days Proair Hfa Inhaler (Albuterol Sulfate) 8.5 Gm Hfa.aer.ad 1 Puff INH PRN Q6HRS PRN 14 Days Levaquin (Levofloxacin) 500 Mg Tablet 0.5 Tab PO QODAY Reported Miralax (Polyethylene Glycol 3350) 17 Gm Powd.pack 1 Pkt PO DAILY Capsaicin 60 Gm Cream..g. 60 Gm TP PRN BID PRN Acetaminophen 500 Mg Tablet 500 Mg PO PRN BID PRN Dulcolax (Bisacodyl) 5 Mg Tablet.dr 5 Mg PO PRN DAILY PRN Ketoconazole 15 Gm Cream..g. 1 Rohit TP BID Clonazepam 0.5 Mg Tablet 0.25 Mg PO PRN BID PRN Allopurinol 100 Mg Tablet 1 Tab PO DAILY Docusate Sodium 100 Mg Capsule 2 Cap PO DAILY Nephro-Woody Tablet (Folic Acid/Vitamin B Comp W-C) 0.8 Mg Tablet 1 Tab PO DAILY Aspirin 81 Mg Tab.chew 1 Tab PO DAILY Omeprazole 20 Mg Capsule.dr 1 Cap PO BID Vitals/I & O Vital Sign - Last 24 Hours 10/30/18 10/30/18 10/30/18 10/30/18 19:00 20:00 20:52 22:37 Temp 98.0 98.2 98.0 98.2 Pulse 74 80 Resp 18 18 B/P (MAP) 157/75 (102) 151/80 (103) Pulse Ox 98 100 99 O2 Delivery BiPAP/CPAP Nasal Cannula Nasal Cannula Nasal Cannula O2 Flow Rate 2.0 2.0 4.0 10/31/18 10/31/18 10/31/18 10/31/18 03:10 07:20 07:32 08:00 Temp 97.8 97.5 97.8 97.5 Pulse 78 77 Resp 19 22 B/P (MAP) 161/85 (110) 187/88 (121) Pulse Ox 97 100 100 O2 Delivery Nasal Cannula Nasal Cannula Nasal Cannula Nasal Cannula O2 Flow Rate 4.0 2.0 2.0 2.0 10/31/18 10/31/18 08:29 11:55 Temp 98.2 98.2 Pulse 77 77 Resp 16 B/P (MAP) 187/88 136/67 (90) Pulse Ox 100 O2 Delivery Nasal Cannula O2 Flow Rate 2.0 Intake and Output 10/30/18 10/30/18 10/31/18 15:00 23:00 07:00 Intake Total 200 ml 300 ml 100 ml Output Total 0 ml Balance 200 ml 300 ml 100 ml BARNEY GALEAS MD Oct 31, 2018 15:07
[2018-10-31 15:15] VITALS: BP 127/61
[2018-10-31 19:20] VITALS: BP 150/91
[2018-10-31] MEDS: ATORVASTATIN CALCIUM 10 MG TABLET. PO SCH (21:06)
[2018-10-31 23:13] VITALS: BP 171/71
[2018-11-01 03:59] VITALS: BP 185/77
[2018-11-01 07:43] VITALS: BP 143/62
--- NOTE | 2018-11-01 08:32 | RAD ---
CT CHEST WO CONTRAST Indication: DYSPNEA AT REST Exposure: One or more of the following individualized dose reduction techniques were utilized for this examination: 1. Automated exposure control 2. Adjustment of the mA and/or kV according to patient size 3. Use of iterative reconstruction technique. Comparison: None Contrast: None FINDINGS: Limited vascular exam without contrast. The aorta is calcified, no evidence of aneurysm. Coronary artery calcifications. Small pericardial effusion. Small left pleural effusion. No significant lymph node enlargement. Thyroid not completely included. Mostly linear markings identified in the left lower lobe, likely atelectasis. Milder markings in the right posterior lung. There are small patchy areas of groundglass infiltrate bilaterally, greatest in the right upper lobe. No dense lobar consolidation. Trachea and central airways are grossly patent. Heart size enlarged. Innumerable small gallstones in the partially visualized gallbladder. Scans through the upper abdomen are limited due to the technique protocol for the chest. Moderate stool identified in the upper colon. Degenerative changes of the visualized spine. Vertebral body height maintained. IMPRESSION: 1. Mild patchy groundglass infiltrates bilaterally, greatest in the right upper lobe, most likely due to a mild inflammatory or infectious etiology. 2. Linear markings in the posterior lungs bilaterally, likely atelectasis. 3. Cholelithiasis. 4. Small left pleural effusion and pericardial effusion. Electronically signed by: Elmer Machuca MD (11/01/2018 8:28 AM) [facility]
[2018-11-01] MEDS: ASPIRIN CHEWABLE 81 MG TABLET. PO SCH (08:34)
[2018-11-01] MEDS: METOPROLOL SUCC 24HR ER 50 MG TAB.ER.24H. PO SCH (08:34)
[2018-11-01] MEDS: ALLOPURINOL 100 MG TABLET. PO SCH (08:34)
[2018-11-01] MEDS: FOLIC/VIT B COMP W-C (RENAL) TABLET. PO SCH (08:34)
[2018-11-01] MEDS: DOCUSATE SODIUM 100 MG CAPSULE. PO SCH (08:34)
[2018-11-01] MEDS: LACTOBACILLUS RHAMNOSUS GG 1 CAPSULE. PO SCH ×2 (08:34→21:17)
[2018-11-01] MEDS: PANTOPRAZOLE IV PUSH 40 MG VIAL. IVP SCH (08:34)
[2018-11-01] MEDS: POLYETHYLENE GLYCOL 3350 17 GM PACKET. PO SCH (08:34)
[2018-11-01] MEDS: KETOCONAZOLE 2% TOPICAL CREAM 15GM TUBE. TP SCH ×2 (08:35→21:17)
[2018-11-01] MEDS ORDERED: MAGNESIUM SULFATE 2GM 50 ML IV PRN (10:00)
[2018-11-01 10:30] VITALS: BP 133/76
[2018-11-01] MEDS ORDERED: ENOXAPARIN 30 MG/0.3 ML SYRINGE. SQ SCH (12:00)
--- NOTE | 2018-11-01 12:38 | PDOC ---
PROGRESS NOTES Chief Complaint Chief Complaint Respiratory distress secondary to volume overload improved, still having copious secretions, no evidence of pneumonic process on x ray nor by history nor by lab work CT without evidence of infiltrate either. Resolved previous pneumonia on imaging studies images do show atelectatic changes, patient at increased risk given his bed ridden status. End-stage renal disease on hemodialysis with missed ultrafiltration yesterday Hypertension poorly controlled Decubitus ulcer over the left heel present on admission necrotic base History of gout currently with no flare Elevated troponin most likely secondary to volume overload Plan: Continue hemodialysis Monitor respiratory status stable from the cardiac stand point elevated troponin due to demand ischemia Resume home medications [place] prophylaxis with heparin guafenesin [place] treatment History of Present Illness History of Present Illness Patient seems to be in no apparent distress. Family members are concerned regarding episodes yesterday evening of dyspnea at rest. I didn't his chronically ill appearing no concerns voiced during my encounter. 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 Reassurance has been provided to the family members at bedside and over the phone Vitals Vitals Vital Signs Date Time Temp Pulse Resp B/P (MAP) Pulse Ox O2 Delivery O2 Flow Rate FiO2 11/01/18 10:30 98.0 81 16 133/76 (95) 99 Nasal Cannula 2.0 98.0 Physical Exam General: Alert, No acute distress Heart: Regular rate, Normal S1, Normal S2, Other (systolic murmur no radiation to the carotids) Lungs: Wheezing, Other Labs LABS Laboratory Tests Test 10/31/18 16:52 10/31/18 20:33 11/01/18 08:09 11/01/18 11:56 Glucose (Fingerstick) 176 mg/dL (70-99) 192 mg/dL (70-99) 146 mg/dL (70-99) 181 mg/dL (70-99) Assessment and Plan Assessmemt and Plan Problems Medical Problems: (1) COPD with acute exacerbation Status: Acute Comment Review of Relevant I have reviewed the following items genoveva (where applicable) has been applied. Labs Laboratory Tests Test 10/30/18 14:40 10/30/18 17:05 10/30/18 18:00 10/30/18 20:28 Potassium Level 3.7 mmol/L (3.5-5.1) Magnesium Level 2.1 mg/dL (1.8-2.4) Glucose (Fingerstick) 191 mg/dL (70-99) 280 mg/dL (70-99) Nasal Screen MRSA (PCR) Positive (Negative) Test 10/31/18 07:41 10/31/18 11:48 10/31/18 16:52 10/31/18 20:33 Glucose (Fingerstick) 146 mg/dL (70-99) 232 mg/dL (70-99) 176 mg/dL (70-99) 192 mg/dL (70-99) Test 11/01/18 08:09 11/01/18 11:56 Glucose (Fingerstick) 146 mg/dL (70-99) 181 mg/dL (70-99) Laboratory Tests Test 10/31/18 16:52 10/31/18 20:33 11/01/18 08:09 11/01/18 11:56 Glucose (Fingerstick) 176 mg/dL (70-99) 192 mg/dL (70-99) 146 mg/dL (70-99) 181 mg/dL (70-99) Microbiology 10/29/18 Blood Culture - Preliminary, Resulted NO GROWTH AFTER 3 DAYS Medications Current Medications Ipratropium [place] (Atrovent) 0.5 mg 1X ONCE NEB Last administered on at 07:30; Start 10/29/18 at 07:30; Stop 10/29/18 at 07:31; Status DC Albuterol Sulfate (Ventolin Neb Soln) 10 mg 1X ONCE CONT NEB Last administered on 10/29/18at 08:59; Start 10/29/18 at 07:30; Stop 10/29/18 at 07:31 ; Status DC Acetaminophen (Tylenol) 650 mg PRN Q4HRS PRN PO FEVER; Start 10/29/18 at 09:45 ; Stop 10/30/18 at 09:44; Status DC Albuterol/ Ipratropium (Duoneb) 3 ml RTQID NEB Last administered on 10/30/18at 14:51; Start 10/29/18 at 12:00; Stop 10/30/18 at 11:59; Status DC Albuterol Sulfate (Ventolin Neb Soln) 2.5 mg PRN Q6HRS PRN INH SHORTNESS OF BREATH Last administered on 10/31/18at 16:58; Start 10/29/18 at 13:30 Allopurinol (Zyloprim) 100 mg DAILY PO Last administered on 11/01/18 08:34; Start 10/29/18 at 14:30 Aspirin (Children'S Aspirin) 81 mg DAILY PO Last administered on 11/01/18 08: 34; Start 10/29/18 at 14:30 Bisacodyl (Dulcolax Tab) 5 mg PRN DAILY PRN PO CONSTIPATION; Start 10/29/18 at 13:30 Carvedilol (Coreg) 3.125 mg BIDWMEALS PO Last administered on 10/30/18 11:38; Start 10/29/18 at 17:00; Stop 10/30/18 at 14:18; Status DC Clonazepam (KlonoPIN) 0.25 mg PRN BID PRN PO ANXIETY / AGITATION Last administered on 10/30/18 21:19; Start 10/29/18 at 13:30 Docusate Sodium (Colace) 200 mg DAILY PO Last administered on 11/01/18 08:34; Start 10/29/18 at 14:30 Vitamin B Complex/ Vitamin C (Gianna-Woody) 1 tab DAILY PO Last administered on 08:34; Start 10/29/18 at 14:30 Ketoconazole (Nizoral 2% Topical) 1 rohit BID TP Last administered on 11/01/18 08:35; Start 10/29/18 at 21:00 Acetaminophen (Tylenol) 500 mg PRN Q6HRS PRN PO MILD PAIN / TEMP; Start at 13:45 Capsaicin (Zostrix) 1 rohit PRN BID PRN TP PAIN; Start 10/29/18 at 14:00 Levofloxacin (Levaquin) 500 mg QODAY PO Last administered on 10/31/18 08:30; Start 10/29/18 at 14:30 Pantoprazole Sodium (Protonix) 40 mg BIDAC PO ; Start 10/29/18 at 16:30; Stop at 12:51; Status DC Polyethylene Glycol (miraLAX PACKET) 17 gm DAILY PO Last administered on 08:34; Start 10/29/18 at 14:30 Info (PHARMACY MONITORING -- do not chart) 1 each PRN DAILY PRN MC SEE COMMENTS ; Start 10/29/18 at 15:00 Info (PHARMACY MONITORING -- do not chart) 1 each PRN DAILY PRN MC SEE COMMENTS ; Start 10/29/18 at 15:00; Stop 10/29/18 at 15:08; Status DC Sodium Chloride 1,000 ml @ 1,000 mls/hr Q1H PRN IV hypotension; Start 10/30/18 at 07:00; Stop 10/30/18 at 12:59; Status DC Sodium Chloride 1,000 ml @ 400 mls/hr Q2H30M PRN IV PATENCY; Start 10/30/18 at 07:00; Stop 10/30/18 at 18:59; Status DC Info (PHARMACY MONITORING -- do not chart) 1 each PRN DAILY PRN MC SEE COMMENTS ; Start 10/30/18 at 08:30; Status UNV Info (PHARMACY MONITORING -- do not chart) 1 each PRN DAILY PRN MC SEE COMMENTS ; Start 10/30/18 at 08:30; Status UNV Darbepoetin Jatinder (Aranesp) 60 mcg WEEKLYHS SQ Last administered on 10/30/18at 21 :19; Start 10/30/18 at 21:00 Pantoprazole Sodium (PROTONIX VIAL for IV PUSH) 40 mg BIDAC IVP Last administered on 11/01/18at 08:34; Start 10/30/18 at 16:30; Stop 11/01/18 at 11:32 ; Status DC Metoprolol Succinate (Toprol Xl) 50 mg DAILY PO Last administered on 11/01/18at 08:34; Start 10/31/18 at 09:00 Atorvastatin Calcium (Lipitor) 10 mg QHS PO Last administered on 10/31/18at 21: 06; Start 10/30/18 at 21:00 Lactobacillus Rhamnosus (Culturelle) 1 cap BID PO Last administered on at 08:34; Start 10/30/18 at 21:00 Magnesium Sulfate 50 ml @ 25 mls/hr PRN DAILY PRN IV for Mag < 1.7 on am labs; Start 11/01/18 at 10:00 Enoxaparin Sodium (Lovenox Per Pharmacy Prophylaxis Dosing) 1 each PRN DAILY PRN MC SEE COMMENTS; Start 11/01/18 at 11:45 Pantoprazole Sodium (Protonix) 40 mg DAILYAC PO ; Start 11/02/18 at 07:30 Enoxaparin Sodium (Lovenox 30mg Syringe) 30 mg Q24H SQ ; Start 11/01/18 at 12:00 Active Scripts Active Coreg (Carvedilol) 3.125 Mg Tablet 3.125 Mg PO BIDWMEALS 30 Days Proair Hfa Inhaler (Albuterol Sulfate) 8.5 Gm Hfa.aer.ad 1 Puff INH PRN Q6HRS PRN 14 Days Levaquin (Levofloxacin) 500 Mg Tablet 0.5 Tab PO QODAY Reported Miralax (Polyethylene Glycol 3350) 17 Gm Powd.pack 1 Pkt PO DAILY Capsaicin 60 Gm Cream..g. 60 Gm TP PRN BID PRN Acetaminophen 500 Mg Tablet 500 Mg PO PRN BID PRN Dulcolax (Bisacodyl) 5 Mg Tablet.dr 5 Mg PO PRN DAILY PRN Ketoconazole 15 Gm Cream..g. 1 Rohit TP BID Clonazepam 0.5 Mg Tablet 0.25 Mg PO PRN BID PRN Allopurinol 100 Mg Tablet 1 Tab PO DAILY Docusate Sodium 100 Mg Capsule 2 Cap PO DAILY Nephro-Woody Tablet (Folic Acid/Vitamin B Comp W-C) 0.8 Mg Tablet 1 Tab PO DAILY Aspirin 81 Mg Tab.chew 1 Tab PO DAILY Omeprazole 20 Mg Capsule. 1 Cap PO BID Vitals/I & O Vital Sign - Last 24 Hours 10/31/18 10/31/18 10/31/18 10/31/18 15:15 16:59 19:20 19:59 Temp 97.9 97.9 97.9 97.9 Pulse 78 65 Resp 16 16 B/P (MAP) 127/61 (83) 150/91 (110) Pulse Ox 96 100 100 O2 Delivery Nasal Cannula Nasal Cannula Nasal Cannula Nasal Cannula O2 Flow Rate 2.0 2.0 2.0 2.0 10/31/18 11/01/18 11/01/18 11/01/18 23:13 03:59 07:43 08:00 Temp 97.6 97.5 97.7 97.6 97.5 97.7 Pulse 74 75 76 Resp 16 16 16 B/P (MAP) 171/71 (104) 185/77 (113) 143/62 (89) Pulse Ox 98 100 99 O2 Delivery Nasal Cannula Nasal Cannula Nasal Cannula Nasal Cannula O2 Flow Rate 2.0 2.0 2.0 2.0 11/01/18 11/01/18 08:34 10:30 Temp 98.0 98.0 Pulse 76 81 Resp 16 B/P (MAP) 143/62 133/76 (95) Pulse Ox 99 O2 Delivery Nasal Cannula O2 Flow Rate 2.0 Intake and Output 10/31/18 10/31/18 11/01/18 15:00 23:00 07:00 Intake Total 480 ml 340 ml Output Total 0 ml Balance 480 ml 340 ml 0 ml BARNEY GALEAS MD Nov 01, 2018 12:38
[2018-11-01 15:11] VITALS: BP 179/82
[2018-11-01] MEDS: hydrALAZINE 25 MG TABLET PO PRN (17:19)
[2018-11-01 18:58] VITALS: BP 179/69
[2018-11-01] MEDS: ALBUTEROL SULFATE 2.5 MG/3 ML NEBU. INH PRN (19:56)
[2018-11-01] MEDS: ATORVASTATIN CALCIUM 10 MG TABLET. PO SCH (21:17)
[2018-11-01] MEDS: ALBUTEROL SULFATE 2.5 MG/3 ML NEBU. NEB SCH (21:19)
[2018-11-01 22:19] VITALS: BP 189/68
[2018-11-02 02:28] VITALS: BP 189/67
[2018-11-02 07:25] VITALS: BP 167/87
[2018-11-02] MEDS: ALBUTEROL SULFATE 2.5 MG/3 ML NEBU. NEB SCH ×4 (08:19→19:42)
[2018-11-02] MEDS: METOPROLOL SUCC 24HR ER 50 MG TAB.ER.24H. PO SCH (08:32)
[2018-11-02] MEDS: hydrALAZINE 25 MG TABLET PO PRN (08:32)
[2018-11-02] MEDS: FOLIC/VIT B COMP W-C (RENAL) TABLET. PO SCH (08:33)
[2018-11-02] MEDS: DOCUSATE SODIUM 100 MG CAPSULE. PO SCH (08:33)
[2018-11-02] MEDS: ALLOPURINOL 100 MG TABLET. PO SCH (08:33)
[2018-11-02] MEDS: LACTOBACILLUS RHAMNOSUS GG 1 CAPSULE. PO SCH ×2 (08:33→21:36)
[2018-11-02] MEDS: ASPIRIN CHEWABLE 81 MG TABLET. PO SCH (08:33)
[2018-11-02] MEDS: POLYETHYLENE GLYCOL 3350 17 GM PACKET. PO SCH (08:34)
[2018-11-02] MEDS: PANTOPRAZOLE 40 MG TABLET.DR. PO SCH (08:34)
[2018-11-02] MEDS: KETOCONAZOLE 2% TOPICAL CREAM 15GM TUBE. TP SCH ×2 (09:00→21:36)
[2018-11-02 09:30] LABS: ALBUMIN 2.8 g/dL (3.4-5.0); CALCIUM 10.2 mg/dL (8.5-10.1); CREATININE 5.1 mg/dL (0.7-1.3); GFR 13.1; MAGNESIUM 2.1 mg/dL (1.8-2.4); PHOSPHORUS 3.7 mg/dL (2.6-4.7); POTASSIUM 4.6 mmol/L (3.5-5.1)
[2018-11-02] MEDS ORDERED: IV NORMAL SALINE 1000ML BAG 1,000 ML IV PRN ×2 (10:07)
[2018-11-02] MEDS ORDERED: DIALYSIS PATIENT. MC PRN ×2 (10:15)
[2018-11-02] MEDS ORDERED: 0.9 % SODIUM CHLORIDE 10 ML DISP.SYRIN. IV PRN ×2 (10:15)
--- NOTE | 2018-11-02 12:04 | PDOC ---
Renal-Progress Notes Subjective Notes Notes CONFUSED History of Present Illness Hx of present illness STABLE Vitals Vitals Vital Signs Date Time Temp Pulse Resp B/P (MAP) Pulse Ox O2 Delivery O2 Flow Rate FiO2 11/02/18 11:26 77 11/02/18 08:32 167/87 11/02/18 08:26 100 Nasal Cannula 2.0 11/02/18 07:25 98.2 98.2 11/02/18 02:28 17 Weight Weight [ ] I.O. Intake and Output Intake and Output 11/02/18 06:59 Intake Total 50 ml Output Total 0 ml Balance 50 ml Intake Oral 50 ml Output Urine Total 0 ml Labs Labs Laboratory Tests Test 11/01/18 20:34 11/02/18 07:34 11/02/18 08:50 Glucose (Fingerstick) 198 mg/dL (70-99) 141 mg/dL (70-99) Hemoglobin 9.1 g/dL (13.0-17.5) Sodium Level 137 mmol/L (136-145) Potassium Level 4.6 mmol/L (3.5-5.1) Chloride Level 98 mmol/L (98-107) Carbon Dioxide Level 29 mmol/L (21-32) Anion Gap 10 (6-14) Blood Urea Nitrogen 55 mg/dL (8-26) Creatinine 5.1 mg/dL (0.7-1.3) Estimated GFR (Cockcroft-Gault) 13.1 Glucose Level 158 mg/dL (70-99) Calcium Level 10.2 mg/dL (8.5-10.1) Phosphorus Level 3.7 mg/dL (2.6-4.7) Magnesium Level 2.1 mg/dL (1.8-2.4) Albumin 2.8 g/dL (3.4-5.0) Micro Micro Microbiology 10/29/18 Blood Culture - Preliminary, Resulted NO GROWTH AFTER 4 DAYS Review of Systems Constitutional: yes: other (CONFUSED) Physical Exam General Appearance: no apparent distress Skin: warm Respiratory: decreased breath sounds Heart: S1S2, RRR Abdomen: soft, bowel sounds present Genitourinary: bladder flat Neurology: alert, follow commands, confused (he thinks he is at home) Musculoskeletal: Osteoarthritis Assessment Assessment IMP ESRD ANEMIA DM II HTN COPD CHF DEMENTIA PLAN HD TODAY UF TO DW WILL FOLLOW SHIVAM SMILEY MD Nov 02, 2018 12:04
--- NOTE | 2018-11-02 12:06 | NUR ---
SS following up with discharge planning. PT signed off. Pt will discharge to home with family when stable for discharge. SS will continue to follow for pending discharge needs.
[2018-11-02 15:00] VITALS: BP 140/62
--- NOTE | 2018-11-02 15:45 | PDOC ---
PROGRESS NOTES Chief Complaint Chief Complaint Respiratory distress secondary to volume overload improved, still having copious secretions, no evidence of pneumonic process on x ray nor by history nor by lab work CT without evidence of infiltrate either. Resolved previous pneumonia on imaging studies images do show atelectatic changes, patient at increased risk given his bed ridden status. End-stage renal disease on hemodialysis with missed ultrafiltration yesterday Hypertension poorly controlled Decubitus ulcer over the left heel present on admission necrotic base History of gout currently with no flare Elevated troponin most likely secondary to volume overload Plan: add hydralazine for better bp control Continue hemodialysis Monitor respiratory status stable from the cardiac stand point elevated troponin due to demand ischemia continue wtih CPT Encourage Aerobika treatments Resume home medications VT prophylaxis with heparin guafenesin hope to discharge in the am History of Present Illness History of Present Illness Patient seems to be in no apparent distress. Family members are concerned regarding episodes yesterday evening of dyspnea at rest. I didn't his chronically ill appearing no concerns voiced during my encounter. 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 Reassurance has been provided to the family members at bedside and over the phone Vitals Vitals Vital Signs Date Time Temp Pulse Resp B/P (MAP) Pulse Ox O2 Delivery O2 Flow Rate FiO2 11/02/18 15:00 97.8 82 16 140/62 (88) 97 Room Air 97.8 11/02/18 08:26 2.0 Physical Exam General: Alert, No acute distress Heart: Regular rate, Normal S1, Normal S2, Other (systolic murmur no radiation to the carotids) Lungs: Wheezing, Other Labs LABS Laboratory Tests Test 11/01/18 20:34 11/02/18 07:34 11/02/18 08:50 11/02/18 15:06 Glucose (Fingerstick) 198 mg/dL (70-99) 141 mg/dL (70-99) 124 mg/dL (70-99) Hemoglobin 9.1 g/dL (13.0-17.5) Sodium Level 137 mmol/L (136-145) Potassium Level 4.6 mmol/L (3.5-5.1) Chloride Level 98 mmol/L (98-107) Carbon Dioxide Level 29 mmol/L (21-32) Anion Gap 10 (6-14) Blood Urea Nitrogen 55 mg/dL (8-26) Creatinine 5.1 mg/dL (0.7-1.3) Estimated GFR (Cockcroft-Gault) 13.1 Glucose Level 158 mg/dL (70-99) Calcium Level 10.2 mg/dL (8.5-10.1) Phosphorus Level 3.7 mg/dL (2.6-4.7) Magnesium Level 2.1 mg/dL (1.8-2.4) Albumin 2.8 g/dL (3.4-5.0) Review of Systems Review of Systems unreliable due to dementia Assessment and Plan Assessmemt and Plan Problems Medical Problems: (1) COPD with acute exacerbation Status: Acute Comment Review of Relevant I have reviewed the following items genoveva (where applicable) has been applied. Labs Laboratory Tests Test 10/31/18 16:52 10/31/18 20:33 11/01/18 08:09 11/01/18 11:56 Glucose (Fingerstick) 176 mg/dL (70-99) 192 mg/dL (70-99) 146 mg/dL (70-99) 181 mg/dL (70-99) Test 11/01/18 20:34 11/02/18 07:34 11/02/18 08:50 11/02/18 15:06 Glucose (Fingerstick) 198 mg/dL (70-99) 141 mg/dL (70-99) 124 mg/dL (70-99) Hemoglobin 9.1 g/dL (13.0-17.5) Sodium Level 137 mmol/L (136-145) Potassium Level 4.6 mmol/L (3.5-5.1) Chloride Level 98 mmol/L (98-107) Carbon Dioxide Level 29 mmol/L (21-32) Anion Gap 10 (6-14) Blood Urea Nitrogen 55 mg/dL (8-26) Creatinine 5.1 mg/dL (0.7-1.3) Estimated GFR (Cockcroft-Gault) 13.1 Glucose Level 158 mg/dL (70-99) Calcium Level 10.2 mg/dL (8.5-10.1) Phosphorus Level 3.7 mg/dL (2.6-4.7) Magnesium Level 2.1 mg/dL (1.8-2.4) Albumin 2.8 g/dL (3.4-5.0) Laboratory Tests Test 11/01/18 20:34 11/02/18 07:34 11/02/18 08:50 11/02/18 15:06 Glucose (Fingerstick) 198 mg/dL (70-99) 141 mg/dL (70-99) 124 mg/dL (70-99) Hemoglobin 9.1 g/dL (13.0-17.5) Sodium Level 137 mmol/L (136-145) Potassium Level 4.6 mmol/L (3.5-5.1) Chloride Level 98 mmol/L (98-107) Carbon Dioxide Level 29 mmol/L (21-32) Anion Gap 10 (6-14) Blood Urea Nitrogen 55 mg/dL (8-26) Creatinine 5.1 mg/dL (0.7-1.3) Estimated GFR (Cockcroft-Gault) 13.1 Glucose Level 158 mg/dL (70-99) Calcium Level 10.2 mg/dL (8.5-10.1) Phosphorus Level 3.7 mg/dL (2.6-4.7) Magnesium Level 2.1 mg/dL (1.8-2.4) Albumin 2.8 g/dL (3.4-5.0) Microbiology 10/29/18 Blood Culture - Preliminary, Resulted NO GROWTH AFTER 4 DAYS Medications Current Medications Ipratropium [place] (Atrovent) 0.5 mg 1X ONCE NEB Last administered on at 07:30; Start 10/29/18 at 07:30; Stop 10/29/18 at 07:31; Status DC Albuterol Sulfate (Ventolin Neb Soln) 10 mg 1X ONCE CONT NEB Last administered on 10/29/18at 08:59; Start 10/29/18 at 07:30; Stop 10/29/18 at 07:31 ; Status DC Acetaminophen (Tylenol) 650 mg PRN Q4HRS PRN PO FEVER; Start 10/29/18 at 09:45 ; Stop 10/30/18 at 09:44; Status DC Albuterol/ Ipratropium (Duoneb) 3 ml RTQID NEB Last administered on 10/30/18at 14:51; Start 10/29/18 at 12:00; Stop 10/30/18 at 11:59; Status DC Albuterol Sulfate (Ventolin Neb Soln) 2.5 mg PRN Q6HRS PRN INH SHORTNESS OF BREATH Last administered on 11/01/18 19:56; Start 10/29/18 at 13:30 Allopurinol (Zyloprim) 100 mg DAILY PO Last administered on 11/02/18 08:33; Start 10/29/18 at 14:30 Aspirin (Children'S Aspirin) 81 mg DAILY PO Last administered on 11/02/18 08: 33; Start 10/29/18 at 14:30 Bisacodyl (Dulcolax Tab) 5 mg PRN DAILY PRN PO CONSTIPATION; Start 10/29/18 at 13:30 Carvedilol (Coreg) 3.125 mg BIDWMEALS PO Last administered on 10/30/18 11:38; Start 10/29/18 at 17:00; Stop 10/30/18 at 14:18; Status DC Clonazepam (KlonoPIN) 0.25 mg PRN BID PRN PO ANXIETY / AGITATION Last administered on 10/30/18 21:19; Start 10/29/18 at 13:30 Docusate Sodium (Colace) 200 mg DAILY PO Last administered on 11/02/18 08:33; Start 10/29/18 at 14:30 Vitamin B Complex/ Vitamin C (Gianna-Woody) 1 tab DAILY PO Last administered on 08:33; Start 10/29/18 at 14:30 Ketoconazole (Nizoral 2% Topical) 1 rohit BID TP Last administered on 11/01/18 21:17; Start 10/29/18 at 21:00 Acetaminophen (Tylenol) 500 mg PRN Q6HRS PRN PO MILD PAIN / TEMP; Start at 13:45 Capsaicin (Zostrix) 1 rohit PRN BID PRN TP PAIN; Start 10/29/18 at 14:00 Levofloxacin (Levaquin) 500 mg QODAY PO Last administered on 11/02/18 08:33; Start 10/29/18 at 14:30 Pantoprazole Sodium (Protonix) 40 mg BIDAC PO ; Start 10/29/18 at 16:30; Stop at 12:51; Status DC Polyethylene Glycol (miraLAX PACKET) 17 gm DAILY PO Last administered on 08:34; Start 10/29/18 at 14:30 Info (PHARMACY MONITORING -- do not chart) 1 each PRN DAILY PRN MC SEE COMMENTS ; Start 10/29/18 at 15:00 Info (PHARMACY MONITORING -- do not chart) 1 each PRN DAILY PRN MC SEE COMMENTS ; Start 10/29/18 at 15:00; Stop 10/29/18 at 15:08; Status DC Sodium Chloride 1,000 ml @ 1,000 mls/hr Q1H PRN IV hypotension; Start 10/30/18 at 07:00; Stop 10/30/18 at 12:59; Status DC Sodium Chloride 1,000 ml @ 400 mls/hr Q2H30M PRN IV PATENCY; Start 10/30/18 at 07:00; Stop 10/30/18 at 18:59; Status DC Info (PHARMACY MONITORING -- do not chart) 1 each PRN DAILY PRN MC SEE COMMENTS ; Start 10/30/18 at 08:30; Status UNV Info (PHARMACY MONITORING -- do not chart) 1 each PRN DAILY PRN MC SEE COMMENTS ; Start 10/30/18 at 08:30; Status UNV Darbepoetin Jatinder (Aranesp) 60 mcg WEEKLYHS SQ Last administered on 10/30/18at 21 :19; Start 10/30/18 at 21:00 Pantoprazole Sodium (PROTONIX VIAL for IV PUSH) 40 mg BIDAC IVP Last administered on 11/01/18at 08:34; Start 10/30/18 at 16:30; Stop 11/01/18 at 11:32 ; Status DC Metoprolol Succinate (Toprol Xl) 50 mg DAILY PO Last administered on 11/02/18at 08:32; Start 10/31/18 at 09:00 Atorvastatin Calcium (Lipitor) 10 mg QHS PO Last administered on 11/01/18at 21: 17; Start 10/30/18 at 21:00 Lactobacillus Rhamnosus (Culturelle) 1 cap BID PO Last administered on at 08:33; Start 10/30/18 at 21:00 Magnesium Sulfate 50 ml @ 25 mls/hr PRN DAILY PRN IV for Mag < 1.7 on am labs; Start 11/01/18 at 10:00 Enoxaparin Sodium (Lovenox Per Pharmacy Prophylaxis Dosing) 1 each PRN DAILY PRN MC SEE COMMENTS; Start 11/01/18 at 11:45; Stop 11/02/18 at 15:10; Status DC Pantoprazole Sodium (Protonix) 40 mg DAILYAC PO Last administered on 11/02/18at 08:34; Start 11/02/18 at 07:30 Enoxaparin Sodium (Lovenox 30mg Syringe) 30 mg Q24H SQ Last administered on at 13:16; Start 11/01/18 at 12:00; Stop 11/02/18 at 15:11; Status DC Hydralazine HCl (Apresoline) 25 mg PRN Q6HRS PRN PO HYPERTENSION, SEE COMMENTS Last administered on 11/02/18at 08:32; Start 11/01/18 at 16:15 Albuterol Sulfate (Ventolin Neb Soln) 2.5 mg Q4HRS W/A NEB Last administered on 11/02/18at 08:19; Start 11/01/18 at 22:00 Sodium Chloride 1,000 ml @ 1,000 mls/hr Q1H PRN IV hypotension; Start 11/02/18 at 10:07; Stop 11/02/18 at 16:06 Sodium Chloride (Normal Saline Flush) 10 ml 1X PRN PRN IV AP catheter pack; Start 11/02/18 at 10:15; Stop 11/03/18 at 10:14 Sodium Chloride (Normal Saline Flush) 10 ml 1X PRN PRN IV [employer] catheter pack; Start 11/02/18 at 10:15; Stop 11/03/18 at 10:14 Sodium Chloride 1,000 ml @ 400 mls/hr Q2H30M PRN IV PATENCY; Start 11/02/18 at 10:07; Stop 11/02/18 at 22:06 Info (PHARMACY MONITORING -- do not chart) 1 each PRN DAILY PRN MC SEE COMMENTS ; Start 11/02/18 at 10:15; Status UNV Info (PHARMACY MONITORING -- do not chart) 1 each PRN DAILY PRN MC SEE COMMENTS ; Start 11/02/18 at 10:15; Status UNV Heparin Sodium (Porcine) (Heparin Sodium) 5,000 unit Q8HRS SQ ; Start 11/02/18 at 15:30 Active Scripts Active Coreg (Carvedilol) 3.125 Mg Tablet 3.125 Mg PO BIDWMEALS 30 Days Proair Hfa Inhaler (Albuterol Sulfate) 8.5 Gm Hfa.aer.ad 1 Puff INH PRN Q6HRS PRN 14 Days Levaquin (Levofloxacin) 500 Mg Tablet 0.5 Tab PO QODAY Reported Miralax (Polyethylene Glycol 3350) 17 Gm Powd.pack 1 Pkt PO DAILY Capsaicin 60 Gm Cream..g. 60 Gm TP PRN BID PRN Acetaminophen 500 Mg Tablet 500 Mg PO PRN BID PRN Dulcolax (Bisacodyl) 5 Mg Tablet.dr 5 Mg PO PRN DAILY PRN Ketoconazole 15 Gm Cream..g. 1 Rohit TP BID Clonazepam 0.5 Mg Tablet 0.25 Mg PO PRN BID PRN Allopurinol 100 Mg Tablet 1 Tab PO DAILY Docusate Sodium 100 Mg Capsule 2 Cap PO DAILY Nephro-Woody Tablet (Folic Acid/Vitamin B Comp W-C) 0.8 Mg Tablet 1 Tab PO DAILY Aspirin 81 Mg Tab.chew 1 Tab PO DAILY Omeprazole 20 Mg Capsule. 1 Cap PO BID Vitals/I & O Vital Sign - Last 24 Hours 11/01/18 11/01/18 11/01/18 11/01/18 17:19 18:58 20:00 20:00 Temp 98.1 98.1 Pulse 74 76 Resp 16 B/P (MAP) 179/82 179/69 (105) Pulse Ox 100 100 O2 Delivery Nasal Cannula Nasal Cannula Nasal Cannula O2 Flow Rate 2.0 2.0 2.0 11/01/18 11/02/18 11/02/18 11/02/18 22:19 02:28 07:25 08:00 Temp 98.0 98.0 98.2 98.0 98.0 98.2 Pulse 80 77 71 Resp 17 17 B/P (MAP) 189/68 (108) 189/67 (107) 167/87 (113) Pulse Ox 100 100 100 O2 Delivery Nasal Cannula Nasal Cannula Nasal Cannula Nasal Cannula O2 Flow Rate 2.0 2.0 2.0 2.0 11/02/18 11/02/18 11/02/18 11/02/18 08:26 08:32 08:32 11:26 Pulse 71 71 77 B/P (MAP) 167/87 167/87 Pulse Ox 100 O2 Delivery Nasal Cannula O2 Flow Rate 2.0 11/02/18 15:00 Temp 97.8 97.8 Pulse 82 Resp 16 B/P (MAP) 140/62 (88) Pulse Ox 97 O2 Delivery Room Air Intake and Output 11/01/18 11/01/18 11/02/18 15:00 23:00 07:00 Intake Total 50 ml Output Total 0 ml Balance 50 ml 0 ml BARNEY GALEAS MD Nov 02, 2018 15:45
[2018-11-02] MEDS: HEPARIN for SUB-Q USE 5,000 UNIT/ML VIAL. SQ SCH ×2 (17:24→21:44)
[2018-11-02] MEDS: hydrALAZINE 25 MG TABLET PO SCH ×2 (17:25→21:37)
[2018-11-02 19:23] VITALS: BP 140/63
--- NOTE | 2018-11-02 19:30 | NUR ---
Pt in bed family at bedside. Assessment completed vss poc explained to pt . Pt denies pain when asked but moans when repositioned. Call light in reach will resume care and continue to monitor pt.
[2018-11-02] MEDS: ATORVASTATIN CALCIUM 10 MG TABLET. PO SCH (21:36)
[2018-11-02 23:00] VITALS: BP 129/61
[2018-11-03 03:00] VITALS: BP 140/65
[2018-11-03 04:30] LABS: ALBUMIN 2.9 g/dL (3.4-5.0); CALCIUM 9.7 mg/dL (8.5-10.1); CREATININE 3.3 mg/dL (0.7-1.3); GFR 21.6; PHOSPHORUS 2.8 mg/dL (2.6-4.7); POTASSIUM 4.2 mmol/L (3.5-5.1)
[2018-11-03] MEDS: PANTOPRAZOLE 40 MG TABLET.DR. PO SCH (05:56)
[2018-11-03] MEDS: HEPARIN for SUB-Q USE 5,000 UNIT/ML VIAL. SQ SCH ×2 (06:04→14:00)
[2018-11-03] MEDS: ALBUTEROL SULFATE 2.5 MG/3 ML NEBU. NEB SCH ×2 (07:05→12:19)
[2018-11-03 07:07] VITALS: BP 156/75
[2018-11-03] MEDS: POLYETHYLENE GLYCOL 3350 17 GM PACKET. PO SCH (08:54)
[2018-11-03] MEDS: FOLIC/VIT B COMP W-C (RENAL) TABLET. PO SCH (08:54)
[2018-11-03] MEDS: METOPROLOL SUCC 24HR ER 50 MG TAB.ER.24H. PO SCH (08:56)
[2018-11-03] MEDS: hydrALAZINE 25 MG TABLET PO SCH ×2 (08:57→15:44)
[2018-11-03] MEDS: ALLOPURINOL 100 MG TABLET. PO SCH (08:57)
[2018-11-03] MEDS: ASPIRIN CHEWABLE 81 MG TABLET. PO SCH (08:57)
[2018-11-03] MEDS: LACTOBACILLUS RHAMNOSUS GG 1 CAPSULE. PO SCH (08:57)
[2018-11-03] MEDS: DOCUSATE SODIUM 100 MG CAPSULE. PO SCH (08:57)
[2018-11-03] MEDS: KETOCONAZOLE 2% TOPICAL CREAM 15GM TUBE. TP SCH (09:00)
[2018-11-03 11:00] VITALS: BP 139/67
[2018-11-03] MEDS ORDERED: HYDR-2868 PO (13:46)
[2018-11-03] MEDS ORDERED: METO50TA4 PO (13:46)
[2018-11-03] MEDS ORDERED: LACT1CAP19 PO (13:46)
[2018-11-03] MEDS ORDERED: ATOR10TA60 PO (13:46)
[2018-11-03] MEDS ORDERED: LEVO500T59 PO (13:46)
--- NOTE | 2018-11-03 13:51 | NUR ---
SS following up with discharge planning. Discharge orders received. SS needing transportation to home via ambulance. Pt scheduled for ambulance transport with [facility] at 1600 for transport to home. Pt's RN notified.
--- NOTE | 2018-11-03 14:28 | PDOC ---
Renal-Progress Notes Subjective Notes Notes NONE History of Present Illness Hx of present illness STABLE Vitals Vitals Vital Signs Date Time Temp Pulse Resp B/P (MAP) Pulse Ox O2 Delivery O2 Flow Rate FiO2 11/03/18 12:19 96 Nasal Cannula 2.0 11/03/18 11:00 97.8 79 18 139/67 (91) 97.8 Weight Weight [ ] I.O. Intake and Output Intake and Output 11/03/18 06:59 Intake Total 610 ml Balance 610 ml Intake Oral 610 ml # Bowel Movements 3 Labs Labs Laboratory Tests Test 11/02/18 15:06 11/02/18 17:12 11/02/18 20:45 11/03/18 02:45 Glucose (Fingerstick) 124 mg/dL (70-99) 214 mg/dL (70-99) 182 mg/dL (70-99) Sodium Level 139 mmol/L (136-145) Potassium Level 4.2 mmol/L (3.5-5.1) Chloride Level 99 mmol/L (98-107) Carbon Dioxide Level 31 mmol/L (21-32) Anion Gap 9 (6-14) Blood Urea Nitrogen 30 mg/dL (8-26) Creatinine 3.3 mg/dL (0.7-1.3) Estimated GFR (Cockcroft-Gault) 21.6 Glucose Level 169 mg/dL (70-99) Calcium Level 9.7 mg/dL (8.5-10.1) Phosphorus Level 2.8 mg/dL (2.6-4.7) Magnesium Level 2.0 mg/dL (1.8-2.4) Albumin 2.9 g/dL (3.4-5.0) Test 11/03/18 07:11 11/03/18 12:11 Glucose (Fingerstick) 138 mg/dL (70-99) 188 mg/dL (70-99) Micro Micro Microbiology 10/29/18 Blood Culture - Final, Complete NO GROWTH AFTER 5 DAYS Review of Systems Constitutional: yes: other (CONFUSED) Physical Exam General Appearance: no apparent distress Skin: warm Respiratory: decreased breath sounds Heart: S1S2, RRR Abdomen: soft, bowel sounds present Genitourinary: bladder flat Neurology: alert, follow commands, confused (he thinks he is at home) Musculoskeletal: Osteoarthritis Assessment Assessment IMP ESRD ANEMIA DM II HTN COPD CHF DEMENTIA PLAN HD TOMORROW WILL FOLLOW SHIVAM SMILEY MD Nov 03, 2018 14:28
[2018-11-03] MEDS ORDERED: MUPI1OIN NS (14:36)
[2018-11-03 15:00] VITALS: BP 132/71
[2018-11-03] MEDS ORDERED: LIDO:MAALOX 1:1 20 ML SINGLE DOSE. SWSW ONE (15:30)
[2018-11-03 15:44] VITALS: BP 132/71
--- NOTE | 2018-11-03 15:52 | PDOC3 ---
Discharge Summary Visit Information Date of Admission: Oct 29, 2018 Date of Discharge: Nov 03, 2018 Admitting Diagnosis: volume overload Admitting Diagnosis Comment: Respiratory distress secondary to volume overload Resolved previous pneumonia on x-ray End-stage renal disease on hemodialysis with missed ultrafiltration yesterday Hypertension poorly controlled Decubitus ulcer over the left heel present on admission necrotic base History of gout currently with no flare Elevated troponin most likely secondary to volume overload Final Diagnosis Respiratory distress secondary to volume overload improved, still having copious secretions, no evidence of pneumonic process on x ray nor by history nor by lab work CT without evidence of infiltrate either. Empirically treated for Bronchitis Resolved previous pneumonia on imaging studies images do show atelectatic changes, patient at increased risk given his bed ridden status. End-stage renal disease on hemodialysis Hypertension fairly controlled Decubitus ulcer over the left heel present on admission necrotic base History of gout currently with no flare Elevated troponin most likely secondary to volume overload and with no clinical significance Brief Hospital Course Allergies Allergies Coded Allergies Type Severity Reaction Last Updated Verified Penicillins Allergy Intermediate 10/29/18 Yes amoxicillin Allergy Intermediate 10/29/18 Yes codeine Allergy Intermediate 10/29/18 Yes erythromycin base Allergy Intermediate 10/29/18 Yes sulfamethoxazole Allergy Intermediate 10/29/18 Yes trimethoprim Allergy Intermediate 10/29/18 Yes I S O L A T I O N *CONTACT* Allergy Unknown 10/29/18 Yes Vital Signs Vital Signs Date Time Temp Pulse Resp B/P (MAP) Pulse Ox O2 Delivery O2 Flow Rate FiO2 11/03/18 12:19 96 Nasal Cannula 2.0 11/03/18 11:00 97.8 79 18 139/67 (91) 97.8 Lab Results Laboratory Tests Test 11/01/18 20:34 11/02/18 07:34 11/02/18 08:50 11/02/18 15:06 Glucose (Fingerstick) 198 mg/dL (70-99) 141 mg/dL (70-99) 124 mg/dL (70-99) Hemoglobin 9.1 g/dL (13.0-17.5) Sodium Level 137 mmol/L (136-145) Potassium Level 4.6 mmol/L (3.5-5.1) Chloride Level 98 mmol/L (98-107) Carbon Dioxide Level 29 mmol/L (21-32) Anion Gap 10 (6-14) Blood Urea Nitrogen 55 mg/dL (8-26) Creatinine 5.1 mg/dL (0.7-1.3) Estimated GFR (Cockcroft-Gault) 13.1 Glucose Level 158 mg/dL (70-99) Calcium Level 10.2 mg/dL (8.5-10.1) Phosphorus Level 3.7 mg/dL (2.6-4.7) Magnesium Level 2.1 mg/dL (1.8-2.4) Albumin 2.8 g/dL (3.4-5.0) Test 11/02/18 17:12 11/02/18 20:45 11/03/18 02:45 11/03/18 07:11 Glucose (Fingerstick) 214 mg/dL (70-99) 182 mg/dL (70-99) 138 mg/dL (70-99) Sodium Level 139 mmol/L (136-145) Potassium Level 4.2 mmol/L (3.5-5.1) Chloride Level 99 mmol/L (98-107) Carbon Dioxide Level 31 mmol/L (21-32) Anion Gap 9 (6-14) Blood Urea Nitrogen 30 mg/dL (8-26) Creatinine 3.3 mg/dL (0.7-1.3) Estimated GFR (Cockcroft-Gault) 21.6 Glucose Level 169 mg/dL (70-99) Calcium Level 9.7 mg/dL (8.5-10.1) Phosphorus Level 2.8 mg/dL (2.6-4.7) Magnesium Level 2.0 mg/dL (1.8-2.4) Albumin 2.9 g/dL (3.4-5.0) Test 11/03/18 12:11 Glucose (Fingerstick) 188 mg/dL (70-99) Laboratory Tests Test 11/02/18 17:12 11/02/18 20:45 11/03/18 02:45 11/03/18 07:11 Glucose (Fingerstick) 214 mg/dL (70-99) 182 mg/dL (70-99) 138 mg/dL (70-99) Sodium Level 139 mmol/L (136-145) Potassium Level 4.2 mmol/L (3.5-5.1) Chloride Level 99 mmol/L (98-107) Carbon Dioxide Level 31 mmol/L (21-32) Anion Gap 9 (6-14) Blood Urea Nitrogen 30 mg/dL (8-26) Creatinine 3.3 mg/dL (0.7-1.3) Estimated GFR (Cockcroft-Gault) 21.6 Glucose Level 169 mg/dL (70-99) Calcium Level 9.7 mg/dL (8.5-10.1) Phosphorus Level 2.8 mg/dL (2.6-4.7) Magnesium Level 2.0 mg/dL (1.8-2.4) Albumin 2.9 g/dL (3.4-5.0) Test 11/03/18 12:11 Glucose (Fingerstick) 188 mg/dL (70-99) Brief Hospital Course History of Present Illness Patient is an 88-year-old AA male ESRD on HD MWF, and multiple medical comorbidities who is bed bound at home. He was transported to the emergency department via EMS after they were summoned for respiratory distress to the household. According to EMS report patient's oxygen level was in the 60s and the patient was placed on a CPAP with improvement in his oxygen saturation route. Patient has not been to his hemodialysis on Friday since he refused treatment. The patient was recently admitted to the hospital and treated for a pneumonic process, the patient and is usually pretty congested as per Dr. riley and utilizes oxygen 24 7. The patient denies fever chills no recent sick contacts, no pleurisy, as per Dr. riley the patient is expectorating some blood- tinged sputum but he does not seem to be in acute respiratory distress at the time my evaluation. He was evaluated in the emergency department and we have been asked to admit for fluid overload. The patient is chronically ill-appearing he has a decubitus ulcer or from necrotic scar over his left heel the bottom of his foot, he denies chest pain or palpitations of the time my evaluation no abdominal pain no urinary symptoms were reported. Plan of care has been explained detail all concerns were addressed to the best of my abilities Patient was evaluated by cardiology and his beta kelly was switched from Coreg to Toprol for better medical management of his underlying disease. The patient's echocardiogram was checked and his ejection fraction has improved from the previous recorded at 30%. Results of the echocardiogram are as follow The left ventricle is normal size. The left ventricular systolic function is normal and the ejection fraction is within normal range. The Ejection Fraction is 50-55%. There is mild concentric left ventricular hypertrophy. There is no significant aortic valvular stenosis. Doppler and Color Flow revealed no significant aortic regurgitation. Doppler and Color-flow revealed mild mitral regurgitation. Doppler and Color Flow revealed mild tricuspid regurgitation. There is moderate-severe pulmonary hypertension. The PA pressure was estimated at 52 mmHg. Signed by : Adria Vicente MD Electronically Approved : 10/29/2018 15:43:19 The patient unfortunately has a lot of secretions due to his bedridden status and his was concerned about a pneumonia we did a CAT scan of the chest that did not show new infiltrates but somewhat atelectatic changes which empirically we treated with levofloxacin. 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 All concerns were addressed to the best of my abilities with the patient's at bedside General: Alert, No acute distress Heart: Regular rate, Normal S1, Normal S2, Other (systolic murmur no radiation to the carotids) Lungs: No Wheezing, Greater than 35 minutes spent in the discharge rpocess in cousneling coordination of care and arrangements for a safe transfer back home. Discharge Information Condition at Discharge: Improved Follow Up: Weeks (1) Disposition/Orders: D/C to Home Scheduled Allopurinol (Allopurinol) 100 Mg Tablet, 1 TAB PO DAILY, #30 Ref 5 (Reported) Entered as Reported by: Odette Berkowitz on 12/26/15 0234 Last Action: Continued on 10/29/18 1324 by BARNEY GALEAS MD Aspirin (Aspirin) 81 Mg Tab.chew, 1 TAB PO DAILY, #30 Ref 3 (Reported) Entered as Reported by: LUANA WILLIAMSON on 01/02/15 1635 Last Action: Continued on 10/29/18 1324 by BARENY GALEAS MD Atorvastatin Calcium (Atorvastatin Calcium) 10 Mg Tablet, 10 MG PO QHS for dyslipidemia for 30 Days, #30 Prescribed by: BARNEY GALEAS MD on 11/03/18 1346 Docusate Sodium (Docusate Sodium) 100 Mg Capsule, 2 CAP PO DAILY, #30 (Reported) Entered as Reported by: LUANA WILLIAMSON on 01/02/15 163 Last Action: Continued on 10/29/181323 by BARNEY GALEAS MD Folic Acid/Vitamin B Comp W-C (Nephro-Woody Tablet) 0.8 Mg Tablet, 1 TAB PO DAILY , #30 Ref 5 (Reported) Entered as Reported by: LUANA WILLIAMSON on 01/02/151634 Last Action: Continued on 10/29/181323 by BARNEY GALEAS MD Hydralazine Hcl (Hydralazine Hcl) 25 Mg Tablet, 25 MG PO TID for HTN for 30 Days , #90 Prescribed by: BARNEY GALEAS MD on 11/03/18 1346 Ketoconazole (Ketoconazole) 15 Gm Cream..g., 1 ZOIE TP BID, #60 Ref 1 (Reported) Entered as Reported by: Odette Berkowitz on 12/26/15 0245 Last Action: Continued on 10/29/181323 by BARNEY GALEAS MD Lactobacillus Rhamnosus Gg (Culturelle) 1 Each Cap.sprink, 1 CAP PO BID for probiotic for 7 Days, #14 Prescribed by: BARNEY GALEAS MD on 11/03/18 1346 Levofloxacin (Levaquin) 500 Mg Tablet, 500 MG PO QODAY for bronchitis for 4 Days , #2 Prescribed by: BARNEY GALEAS MD on 11/03/18 1346 Metoprolol Succinate (Toprol Xl) 50 Mg Tab.er.24h, 50 MG PO DAILY for HTN for 30 Days, #30 Prescribed by: BARNEY GALEAS MD on 11/03/18 1346 Mupirocin Calcium (Bactroban Nasal) 1 Gm Oint...g., 1 GM NS BID for MRSA colonization for 7 Days, #10 Prescribed by: BARNEY GALEAS MD on 11/03/18 1436 Omeprazole (Omeprazole) 20 Mg Capsule.dr, 1 CAP PO BID, #30 Ref 5 (Reported) Entered as Reported by: LUANA WILLIAMSON on 01/02/151634 Last Action: Converted on 10/29/181323 by BARNEY GALEAS MD Polyethylene Glycol 3350 (Miralax) 17 Gm Powd.pack, 1 PKT PO DAILY, (Reported) Entered as Reported by: MASON CLARKE on 3/26/18 0229 Last Action: Converted on 10/29/181323 by BARNEY GALEAS MD Scheduled PRN Acetaminophen (Acetaminophen) 500 Mg Tablet, 500 MG PO PRN BID PRN for PAIN, ( Reported) Entered as Reported by: MASON CLARKE on 12/01/17228 Last Action: Converted on 10/29/181323 by BARNEY GALEAS MD Albuterol Sulfate (Proair Hfa Inhaler) 8.5 Gm Hfa.aer.ad, 1 PUFF INH PRN Q6HRS PRN for SHORTNESS OF BREATH for 14 Days, Ref 0 Prescribed by: NAYLA ESCALANTE on 10/23/18 1011 Last Action: Continued on 10/29/181323 by BARNEY GALEAS MD Bisacodyl (Dulcolax) 5 Mg Tablet.dr, 5 MG PO PRN DAILY PRN for CONSTIPATION, Ref 0 (Reported) Entered as Reported by: Odette Berkowitz on 12/26/15 0300 Last Action: Continued on 10/29/181323 by BARNEY GALEAS MD Capsaicin (Capsaicin) 60 Gm Cream..g., 60 GM TP PRN BID PRN for PAIN, (Reported) Entered as Reported by: MASON CLARKE on 12/01/17228 Last Action: Converted on 10/29/181323 by BARNEY GALEAS MD Clonazepam (Clonazepam) 0.5 Mg Tablet, 0.25 MG PO PRN BID PRN for ANXIETY / AGITATION, #60 Ref 1 (Reported) Entered as Reported by: Odette Berkowitz on 12/26/15 0238 Last Action: Continued on 10/29/181323 by BARNEY GALEAS MD Discontinued Medications Carvedilol (Coreg ) 3.125 Mg Tablet, 3.125 MG PO BIDWMEALS for CARDIAC for 30 Days, #60 Prescribed by: NAYLA ESCALANTE on 10/24/18 0845 Last Action: Continued on 10/29/181323 by BARNEY GALEAS MD Insulin Aspart (Novolog) 100 Unit/1 Ml Cartridge, 100 UNIT SQ TIDBFRMEAL for DM, (Reported) Entered as Reported by: ASHLEY EDUARDO on 10/29/18 1156 Last Taken: Unknown Dose on Unknown Date & Time Last Action: Discontinued on 10/29/18 1314 by ASHLEY EDUARDO Levofloxacin (Levaquin) 500 Mg Tablet, 0.5 TAB PO QODAY for bronchitis, #7 Prescribed by: NAYLA ESCALANTE on 10/23/18 1011 Last Action: Converted on 10/29/18 1324 by MD GUDELIA RODRIGUEZ HECTOR M MD Nov 03, 2018 15:52
--- NOTE | 2018-11-03 17:24 | NUR ---
Discharge Note: ADRIENNE PHILLIPS [address] [place] [address] Discharge instructions and discharge home medications reviewed with patient and a copy given. All questions have been answered and understanding verbalized. Wound pics taken. The following instructions and handouts were given: CHF and follow ups. Discontinued lines and drains: left IV intact. Patient discharged to home with home health via EMS.
== END 2018-11-03 16:00 | disposition home or self-care (01) | DRG 291 ==
LOC: ER 07:18 → 2 NORTH 09:21
PROVIDERS: ADMIT Internal Medicine; ATTEND Internal Medicine
PROC: 5A1D70Z Performance of Urinary Filtration, Intermittent, Less than 6 Hours Per Day (ICD-10-PCS; 2018-10-29)
PROC: 5A09357 Assistance with Respiratory Ventilation, Less than 24 Consecutive Hours, Continuous Positive Airway Pressure (ICD-10-PCS; 2018-10-29)
PROC: 5A1D70Z Performance of Urinary Filtration, Intermittent, Less than 6 Hours Per Day (ICD-10-PCS; 2018-10-30)
PROC: 5A09357 Assistance with Respiratory Ventilation, Less than 24 Consecutive Hours, Continuous Positive Airway Pressure (ICD-10-PCS; 2018-10-30)
PROC: 5A1D70Z Performance of Urinary Filtration, Intermittent, Less than 6 Hours Per Day (ICD-10-PCS; principal; 2018-11-02)
DX: I13.2 Hypertensive heart and chronic kidney disease with heart failure and with stage 5 chronic kidney disease, or end stage renal disease (principal); J96.21 Acute and chronic respiratory failure with hypoxia; I50.23 Acute on chronic systolic (congestive) heart failure; N18.6 End stage renal disease; J44.1 Chronic obstructive pulmonary disease with (acute) exacerbation; I47.2 Ventricular tachycardia; I42.9 Cardiomyopathy, unspecified; E11.22 Type 2 diabetes mellitus with diabetic chronic kidney disease; M10.9 Gout, unspecified; E78.5 Hyperlipidemia, unspecified; M19.90 Unspecified osteoarthritis, unspecified site; D64.9 Anemia, unspecified; F03.90 Unspecified dementia, unspecified severity, without behavioral disturbance, psychotic disturbance, mood disturbance, and anxiety; L89.629 Pressure ulcer of left heel, unspecified stage; Z99.2 Dependence on renal dialysis; Z88.1 Allergy status to other antibiotic agents; Z88.0 Allergy status to penicillin; Z88.2 Allergy status to sulfonamides; Z88.8 Allergy status to other drugs, medicaments and biological substances; Z82.49 Family history of ischemic heart disease and other diseases of the circulatory system; Z74.01 Bed confinement status; Z90.49 Acquired absence of other specified parts of digestive tract; Z87.01 Personal history of pneumonia (recurrent)
CPT/HCPCS: 36415; 36600; 71045; 71250; 80048; 80053; 80061; 80069; 82805; 82962; 83605; 83735; 83880; 84100; 84132; 84484; 85018; 85025; 87040; 87641; 87804; 93005; 93306; 94640; 94660; 94667; 94668; 94760; C9113; J0881; J1644; J1650; J7613; J7620; J7644; 92610; 99285-25

== ENCOUNTER 2018-11-04 18:56 | Emergency (ER) | payer MEDICARE ==
[~2018-11-04] VITALS: Ht 167.6 cm; Wt 84.8 kg
[~2018-11-04 18:56] MED LIST changes: +ATOR10TA60 PO; +HYDR-2868 PO; +INSU100C4 SQ; +LACT1CAP19 PO; +METO50TA4 PO; +MUPI1OIN NS
--- NOTE | 2018-11-04 19:38 | RAD ---
Indication:Altered mental status TECHNIQUE:Portable AP chest X-ray COMPARISON:10/29/2018 FINDINGS: Heart is moderately enlarged in size. Stable central venous catheter is seen with its tip at the cavoatrial junction. Interval improvement in previously seen bilateral interstitial opacities. No pneumothorax or pleural effusion. Visualized bony thorax within normal limits. IMPRESSION: Interval improvement in previously seen bilateral interstitial opacities likely result interstitial pulmonary edema. Electronically signed by: Sanford Kaur DO (11/04/2018 7:35 PM) [facility]
--- NOTE | 2018-11-04 19:48 | PHYS DOC ---
Past Medical History Past Medical History: CHF, COPD, Diabetes-Type II, Hypertension, Renal Disease , Renal Failure Additional Past Medical Histor: on dialysis Past Surgical History: Appendectomy Additional Past Surgical Histo: BILATERAL FOOT SURGERY, GALL STONE REMOVAL; dialysis catheter Alcohol Use: None Drug Use: None Adult General Chief Complaint Chief Complaint: ALTERED MENTAL STATUS HPI HPI Patient is an 88-year-old male who presents from [facility] after reportedly going unresponsive. Medics indicate that dialysis staff stated the patient had gone unresponsive for undetermined amount of time but after becoming responsive they determined to continue dialysis. Medics further indicate that they had reviewed the logs and saw that patient's blood pressures had dropped down into the 50s systolic during dialysis. Patient reportedly had completed his dialysis. Upon arrival, patient appears very confused, unable to answer questions. Additional history is limited based upon this. Review of Systems Review of Systems Constitutional: No reported fever[] Respiratory: No reported shortness of breath [] Cardiovascular: No additional information not addressed in HPI [] GI: No reported vomiting or diarrhea [] Neurologic: Positive mental status changes [] Unable to fully assess review of systems due to patient mental state. Allergies Allergies Allergies Coded Allergies Type Severity Reaction Last Updated Verified Penicillins Allergy Intermediate 10/29/18 Yes amoxicillin Allergy Intermediate 10/29/18 Yes codeine Allergy Intermediate 10/29/18 Yes erythromycin base Allergy Intermediate 10/29/18 Yes sulfamethoxazole Allergy Intermediate 10/29/18 Yes trimethoprim Allergy Intermediate 10/29/18 Yes I S O L A T I O N *CONTACT* Allergy Unknown 10/29/18 Yes Physical Exam Physical Exam Constitutional: Well developed, well nourished, no acute distress. [] HENT: Normocephalic, atraumatic, bilateral external ears normal, oropharynx dry , nose normal. [] Eyes: PERRLA, EOMI, conjunctiva normal, no discharge. [] Neck: Normal range of motion, no tenderness, supple. [] Cardiovascular: Regular rate and rhythm[] Lungs & Thorax: Fine rhonchi in the bilateral lung bases to auscultation [] Abdomen: Bowel sounds normal, soft, no tenderness. [] Skin: Warm, dry. [] Extremities: No cyanosis, no clubbing, ROM intact. [] Neurologic: Disoriented 3, unable to fully assess neurological status as patient is unable to follow commands. [] Current Patient Data Vital Signs Vital Signs Date Time Temp Pulse Resp B/P (MAP) Pulse Ox O2 Delivery O2 Flow Rate FiO2 11/04/18 20:45 79 16 100 11/04/18 19:00 97.7 143/67 (92) Nasal Cannula 2.0 97.7 Lab Values Laboratory Tests Test 11/04/18 20:00 White Blood Count 8.3 x10^3/uL (4.0-11.0) Red Blood Count 3.31 x10^6/uL (4.30-5.70) L Hemoglobin 9.3 g/dL (13.0-17.5) L Hematocrit 30.2 % (39.0-53.0) L Mean Corpuscular Volume 91 fL (79-100) Mean Corpuscular Hemoglobin 28 pg (25-35) Mean Corpuscular Hemoglobin Concent 31 g/dL (31-37) Red Cell Distribution Width 18.0 % (11.5-14.5) H Platelet Count 283 x10^3/uL (140-400) Neutrophils (%) (Auto) 69 % (31-73) Lymphocytes (%) (Auto) 16 % (24-48) L Monocytes (%) (Auto) 11 % (0-9) H Eosinophils (%) (Auto) 3 % (0-3) Basophils (%) (Auto) 0 % (0-3) Neutrophils # (Auto) 5.8 x10^3uL (1.8-7.7) Lymphocytes # (Auto) 1.4 x10^3/uL (1.0-4.8) Monocytes # (Auto) 0.9 x10^3/uL (0.0-1.1) Eosinophils # (Auto) 0.3 x10^3/uL (0.0-0.7) Basophils # (Auto) 0.0 x10^3/uL (0.0-0.2) Sodium Level 139 mmol/L (136-145) Potassium Level 4.2 mmol/L (3.5-5.1) Chloride Level 98 mmol/L (98-107) Carbon Dioxide Level 29 mmol/L (21-32) Anion Gap 12 (6-14) Blood Urea Nitrogen 30 mg/dL (8-26) H Creatinine 3.1 mg/dL (0.7-1.3) H Estimated GFR (Cockcroft-Gault) 23.2 BUN/Creatinine Ratio 10 (6-20) Glucose Level 142 mg/dL (70-99) H Lactic Acid Level 1.9 mmol/L (0.4-2.0) Calcium Level 9.5 mg/dL (8.5-10.1) Phosphorus Level 3.3 mg/dL (2.6-4.7) Magnesium Level 2.1 mg/dL (1.8-2.4) Total Bilirubin 0.4 mg/dL (0.2-1.0) Aspartate Amino Transferase (AST) 16 U/L (15-37) Alanine Aminotransferase (ALT) 13 U/L (16-63) L Alkaline Phosphatase 73 U/L (46-116) Ammonia 33 mcmol/L (11-34) Troponin I Quantitative 0.066 ng/mL (0.000-0.055) UH-Rss-I-Type Natriuretic Peptide 08707 pg/mL (0-449) H Total Protein 7.9 g/dL (6.4-8.2) Albumin 3.0 g/dL (3.4-5.0) L Albumin/Globulin Ratio 0.6 (1.0-1.7) L Laboratory Tests 11/04/18 20:00 Laboratory Tests 11/04/18 20:00 EKG EKG [] Interpretation Time: EKG demonstrates sinus rhythm with rate of 82. Radiology/Procedures Radiology/Procedures [] Impressions: PROCEDURE: PORTABLE CHEST 1V Indication:Altered mental status TECHNIQUE:Portable AP chest X-ray COMPARISON:10/29/2018 FINDINGS: Heart is moderately enlarged in size. Stable central venous catheter is seen with its tip at the cavoatrial junction. Interval improvement in previously seen bilateral interstitial opacities. No pneumothorax or pleural effusion. Visualized bony thorax within normal limits. IMPRESSION: Interval improvement in previously seen bilateral interstitial opacities likely result interstitial pulmonary edema. Electronically signed by: Sanford Kaur DO (11/04/2018 7:35 PM) [facility] Course & Med Decision Making Course & Med Decision Making Pertinent Labs and Imaging studies reviewed. (See chart for details) Workup on this patient has returned fairly stable on this patient. Dr. Mitchell presented to emergency room and saw the patient was here. He indicates that he had just discharged patient home yesterday. He went into room to evaluate the patient and family indicates that he has returned to baseline. We did discuss re -admission versus discharge home and family does feel comfortable with discharge. Given lab work that is unremarkable as well as overall improvement in chest x-ray from previous studies, we will plan on discharging patient home with outpatient follow-up. Dragon Disclaimer Dragon Disclaimer This electronic medical record was generated, in whole or in part, using a voice recognition dictation system. Departure Departure Impression: Primary Impression: Hypotensive episode Additional Impression: Mental status change resolved Disposition: 01 HOME, SELF-CARE Condition: STABLE Referrals: UNKNOWN PCP NAME (PCP) Patient Instructions: Altered Mental Status, Hypotension Problem Qualifiers BRAYAN GONZALES Jr. DO Nov 04, 2018 19:48
[2018-11-04 20:18] LABS: BASO % 0 % (0-3); EOS # 0.3 x10^3/uL (0.0-0.7); EOS % 3 % (0-3); HEMATOCRIT 30.2 % (39.0-53.0); HEMOGLOBIN 9.3 g/dL (13.0-17.5); LYMPH # 1.4 x10^3/uL (1.0-4.8); LYMPH % 16 % (24-48); MEAN CORPUSCULAR HEMOGLOBIN 28 pg (25-35); MEAN CORPUSCULAR HGB CONC 31 g/dL (31-37); MEAN CORPUSCULAR VOLUME 91 fL (79-100); MONO # 0.9 x10^3/uL (0.0-1.1); MONO % 11 % (0-9); NEUT # 5.8 x10^3uL (1.8-7.7); NEUT % 69 % (31-73); PLATELET COUNT 283 x10^3/uL (140-400); RED BLOOD COUNT 3.31 x10^6/uL (4.30-5.70); WHITE BLOOD COUNT 8.3 x10^3/uL (4.0-11.0)
[2018-11-04 20:31] LABS: CALCIUM 9.5 mg/dL (8.5-10.1); CREATININE 3.1 mg/dL (0.7-1.3); GFR 23.2; POTASSIUM 4.2 mmol/L (3.5-5.1)
[2018-11-04 20:37] LABS: ALBUMIN/GLOBULIN RATIO 0.6 (1.0-1.7); MAGNESIUM 2.1 mg/dL (1.8-2.4); PHOSPHORUS 3.3 mg/dL (2.6-4.7); TOTAL BILIRUBIN 0.4 mg/dL (0.2-1.0); TOTAL PROTEIN 7.9 g/dL (6.4-8.2)
[2018-11-04 20:45] VITALS: BP 184/84
--- NOTE | 2018-11-04 22:58 | EKG ---
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
== END 2018-11-04 21:50 | disposition home or self-care (01) ==
LOC: ER 18:56
DX: I95.9 Hypotension, unspecified (principal); R41.82 Altered mental status, unspecified; I13.2 Hypertensive heart and chronic kidney disease with heart failure and with stage 5 chronic kidney disease, or end stage renal disease; E11.22 Type 2 diabetes mellitus with diabetic chronic kidney disease; N18.6 End stage renal disease; I50.9 Heart failure, unspecified; Z99.2 Dependence on renal dialysis; J44.9 Chronic obstructive pulmonary disease, unspecified; Z90.89 Acquired absence of other organs; Z88.0 Allergy status to penicillin; Z88.1 Allergy status to other antibiotic agents; Z88.2 Allergy status to sulfonamides; Z88.5 Allergy status to narcotic agent; Z91.041 Radiographic dye allergy status
CPT/HCPCS: 36415; 71045; 80053; 82140; 83605; 83735; 83880; 84100; 84484; 85025; 87040; 93005; 99284

== ENCOUNTER 2018-12-04 17:54 | Inpatient (IN) | payer MEDICARE ==
[~2018-12-04] VITALS: Ht 182.9 cm; Wt 84.8 kg
[2018-12-04] MEDS ORDERED: IV NORMAL SALINE 1000ML BAG 1,000 ML IV ONE (18:15)
--- NOTE | 2018-12-04 18:59 | PHYS DOC ---
Past Medical History Past Medical History: CHF, COPD, Diabetes-Type II, Hypertension, Renal Disease , Renal Failure, TIA Additional Past Medical Histor: on dialysis, HYPERPARATHYROID Past Surgical History: Appendectomy, Tonsillectomy Additional Past Surgical Histo: BILATERAL FOOT SURGERY, GALL STONE REMOVAL; dialysis catheter LEFT CHEST Alcohol Use: None Drug Use: None Adult General Chief Complaint Chief Complaint: ALTERED MENTAL STATUS HPI HPI Patient is a 88 year old male who presents the ED with altered mental status. History is mixed. We were lead to believe that his family noticed his baseline altered mental status was worsened during dialysis. However the family reports that his mental status is fine, but they were told that he was sent to the ED because his blood pressure spiked to 200/something and then tanked "very very low" and he felt cold and clammy. Patient is having no symptoms at this time except his butt is sore where he has a pressure sore. He states that he is bedridden at home and his family takes care of him. He does not move his lower extremities or his left upper extremity. This is baseline for him. He is aware of person time and place. Review of Systems Review of Systems Constitutional: Denies fever or chills [] Eyes: Denies change in visual acuity, redness, or eye pain [] HENT: Denies nasal congestion or sore throat [] Respiratory: Denies cough or shortness of breath [] Cardiovascular: Denies chest pain or palpitations. GI: Denies abdominal pain, nausea, vomiting, bloody stools or diarrhea [] : Denies dysuria or hematuria [] Musculoskeletal: Denies back pain or joint pain [] Integument: Admits pressure sore on low back. Denies rash [] Neurologic: Denies headache, focal weakness or sensory changes [] Complete systems were reviewed and found to be within normal limits, except as documented in this note. Current Medications Current Medications Current Medications Medications (Trade) Dose Ordered Sig/Arlene Start Time Stop Time Status Last Admin Dose Admin Sodium Chloride 1,000 ml @ 1,000 mls/hr 1X ONCE 12/04/18 18:15 12/04/18 19:14 DC 12/04/18 19:10 1,000 MLS/HR Allergies Allergies Allergies Coded Allergies Type Severity Reaction Last Updated Verified Penicillins Allergy Intermediate 10/29/18 Yes amoxicillin Allergy Intermediate 10/29/18 Yes codeine Allergy Intermediate 10/29/18 Yes erythromycin base Allergy Intermediate 10/29/18 Yes sulfamethoxazole Allergy Intermediate 10/29/18 Yes trimethoprim Allergy Intermediate 10/29/18 Yes I S O L A T I O N *CONTACT* Allergy Unknown 10/29/18 Yes Physical Exam Physical Exam Constitutional: Well developed, well nourished, no acute distress, non-toxic appearance. [] HENT: Normocephalic, atraumatic, bilateral external ears normal, oropharynx moist, no oral exudates, nose normal. [] Eyes: PERRL, EOMI, conjunctiva normal, no discharge. [] Neck: Normal range of motion, no tenderness, supple, no stridor. [] Cardiovascular: Heart rate regular rhythm, no murmur [] Lungs & Thorax: Bilateral breath sounds clear to auscultation [] Abdomen: Soft, no tenderness Skin: Warm, dry, no erythema, no rash. [] Back: No tenderness, no CVA tenderness. [] Extremities: No movement in the lower extremities. No movement in shoulder or elbow joints of left upper extremity. Patient able to move left hand and fingers with baseline contracture of left hand. Tender to passive range of motion in both lower extremities. No cyanosis, no clubbing, no edema. [] Neurologic: Alert and oriented to time person and place, normal motor function, normal sensory function, no focal deficits noted. [] Psychologic: Affect normal, judgement normal, mood normal. [] Current Patient Data Vital Signs Vital Signs Date Time Temp Pulse Resp B/P (MAP) Pulse Ox O2 Delivery O2 Flow Rate FiO2 12/04/18 20:42 84 93 12/04/18 17:55 97.8 20 140/61 (87) Nasal Cannula 97.8 Lab Values Laboratory Tests Test 12/04/18 18:02 12/04/18 19:45 12/04/18 20:15 Glucose (Fingerstick) 111 mg/dL (70-99) H White Blood Count 9.1 x10^3/uL (4.0-11.0) Red Blood Count 3.48 x10^6/uL (4.30-5.70) L Hemoglobin 10.1 g/dL (13.0-17.5) L Hematocrit 32.9 % (39.0-53.0) L Mean Corpuscular Volume 95 fL (79-100) Mean Corpuscular Hemoglobin 29 pg (25-35) Mean Corpuscular Hemoglobin Concent 31 g/dL (31-37) Red Cell Distribution Width 19.6 % (11.5-14.5) H Platelet Count 224 x10^3/uL (140-400) Neutrophils (%) (Auto) 74 % (31-73) H Lymphocytes (%) (Auto) 13 % (24-48) L Monocytes (%) (Auto) 10 % (0-9) H Eosinophils (%) (Auto) 3 % (0-3) Basophils (%) (Auto) 1 % (0-3) Neutrophils # (Auto) 6.8 x10^3uL (1.8-7.7) Lymphocytes # (Auto) 1.2 x10^3/uL (1.0-4.8) Monocytes # (Auto) 0.9 x10^3/uL (0.0-1.1) Eosinophils # (Auto) 0.3 x10^3/uL (0.0-0.7) Basophils # (Auto) 0.1 x10^3/uL (0.0-0.2) Prothrombin Time 12.8 SEC (11.7-14.0) Prothrombin Time INR 1.0 (0.8-1.1) PTT 25 SEC (24-38) Sodium Level 140 mmol/L (136-145) Potassium Level 3.6 mmol/L (3.5-5.1) Chloride Level 103 mmol/L (98-107) Carbon Dioxide Level 21 mmol/L (21-32) Anion Gap 16 (6-14) H Blood Urea Nitrogen 24 mg/dL (8-26) Creatinine 5.3 mg/dL (0.7-1.3) H Estimated GFR (Cockcroft-Gault) 12.5 BUN/Creatinine Ratio 5 (6-20) L Glucose Level 154 mg/dL (70-99) H Lactic Acid Level 1.5 mmol/L (0.4-2.0) Calcium Level 9.8 mg/dL (8.5-10.1) Magnesium Level 2.0 mg/dL (1.8-2.4) Total Bilirubin 0.4 mg/dL (0.2-1.0) Aspartate Amino Transferase (AST) 11 U/L (15-37) L Alanine Aminotransferase (ALT) 8 U/L (16-63) L Alkaline Phosphatase 65 U/L (46-116) Ammonia 13 mcmol/L (11-34) Creatine Kinase 33 U/L (39-308) L Creatine Kinase MB (Mass) 2.9 ng/mL (0.0-3.6) Creatine Kinase MB Relative Index % (0-4) Troponin I Quantitative 0.067 ng/mL (0.000-0.055) Total Protein 8.0 g/dL (6.4-8.2) Albumin 3.1 g/dL (3.4-5.0) L Albumin/Globulin Ratio 0.6 (1.0-1.7) L Laboratory Tests 12/04/18 19:45 Laboratory Tests 12/04/18 20:15 EKG EKG EKG taken on 12/04/2018 at 1802. Sinus rhythm at 80 bpm. No STEMI noted. Radiology/Procedures Radiology/Procedures [] Course & Med Decision Making Course & Med Decision Making Pertinent Labs and Imaging studies reviewed. (See chart for details) [] Dragon Disclaimer Dragon Disclaimer This electronic medical record was generated, in whole or in part, using a voice recognition dictation system. Departure Departure Impression: Primary Impression: Altered mental status Additional Impression: CKD (chronic kidney disease) Disposition: ADMITTED INPATIENT Admitting Physician: Kassandra Baltazar Condition: STABLE Referrals: UNKNOWN PCP NAME (PCP) NIHSS Stroke Scale NIH Stroke Scale: NIH Stroke Scale Response (Comments) Value Level of Consciousness: 0 Alert/Responsive 0 LOC Questions: 0 Answers both correctly 0 LOC Commands: 0 Performs both tasks 0 Best Gaze: 0 Normal 0 Visual: 0 No visual loss 0 Facial Palsy: 0 Normal, symmetrical 0 Motor - Left Arm 4 No movement (Baseline for over 7 months) 4 Motor - Right Arm 1 Drifts but can hold (Baseline weakness, chronic) 1 Motor - Left Leg 4 No movement (Baseline, chronic) 4 Motor: Right Leg 4 No movement (Baseline, chronic) 4 Limb Ataxia: 0 Absent 0 Sensory: 0 No loss 0 Best Language: 0 Normal 0 Extinction and Inattention: 0 Normal 0 Total 13 Problem Qualifiers Primary Impression: Altered mental status Altered mental status type: unspecified Qualified Codes: R41.82 - Altered mental status, unspecified Additional Impression: CKD (chronic kidney disease) Chronic kidney disease stage: on chronic dialysis Qualified Codes: N18.6 - End stage renal disease; Z99.2 - Dependence on renal dialysis BOBBY EMERY DO Dec 04, 2018 18:59
--- NOTE | 2018-12-04 19:09 | RAD ---
EXAM: CT Head without IV contrast CLINICAL HISTORY: altered mental status COMPARISON: 11/30/2017 TECHNIQUE: Routine CT of the head without contrast PQRS compliance statement - One or more of the following individualized dose reduction techniques were utilized for this study: 1. Automated exposure control 2. Adjustment of the mA and/or kV according to patient size 3. Use of iterative reconstruction technique FINDINGS: There is no evidence of hemorrhage, mass or extra-axial fluid collection. Wright-white differentiation is maintained with no evidence of edema. There are non-specific foci of hypodensity in the periventricular and subcortical white matter of the cerebral hemispheres. There is no mass effect or shift of the intracranial structures. The ventricles and cerebral sulci are prominent for the patients stated age consistent with generalized cerebral volume loss,/atrophy. The cerebellum and brainstem are unremarkable. The calvarium demonstrates no evidence of fracture or focal lesion. There is patchy opacification of the mastoid air cells. There is diffuse opacification of the maxillary sinuses, left sphenoid sinus, frontal sinuses and patchy scattered ethmoid air cell opacification. The visualized portions of the orbits are normal. Atherosclerotic calcifications of the intracranial internal carotid and vertebral arteries is seen. IMPRESSION: 1. No evidence for acute intracranial process. 2. Diffuse multifocal paranasal sinus opacification, possibly sinusitis. Electronically signed by: Aleksandr Greene MD (12/04/2018 7:06 PM) [facility]
[2018-12-04 20:01] LABS: BASO # 0.1 x10^3/uL (0.0-0.2); BASO % 1 % (0-3); EOS # 0.3 x10^3/uL (0.0-0.7); EOS % 3 % (0-3); HEMATOCRIT 32.9 % (39.0-53.0); HEMOGLOBIN 10.1 g/dL (13.0-17.5); LYMPH # 1.2 x10^3/uL (1.0-4.8); LYMPH % 13 % (24-48); MEAN CORPUSCULAR HEMOGLOBIN 29 pg (25-35); MEAN CORPUSCULAR HGB CONC 31 g/dL (31-37); MEAN CORPUSCULAR VOLUME 95 fL (79-100); MONO # 0.9 x10^3/uL (0.0-1.1); MONO % 10 % (0-9); NEUT # 6.8 x10^3uL (1.8-7.7); NEUT % 74 % (31-73); PLATELET COUNT 224 x10^3/uL (140-400); RED BLOOD COUNT 3.48 x10^6/uL (4.30-5.70); RED CELL DISTRIBUTION WIDTH 19.6 % (11.5-14.5); WHITE BLOOD COUNT 9.1 x10^3/uL (4.0-11.0)
[2018-12-04 20:34] LABS: PROTHROMBIN TIME PATIENT 12.8 SEC (11.7-14.0)
[2018-12-04 20:38] LABS: CALCIUM 9.8 mg/dL (8.5-10.1); CREATININE 5.3 mg/dL (0.7-1.3); GFR 12.5; POTASSIUM 3.6 mmol/L (3.5-5.1)
[2018-12-04 20:43] LABS: ALBUMIN 3.1 g/dL (3.4-5.0); ALBUMIN/GLOBULIN RATIO 0.6 (1.0-1.7); TOTAL BILIRUBIN 0.4 mg/dL (0.2-1.0)
[2018-12-04 21:03] LABS: CREATINE KINASE 33 U/L (39-308)
[2018-12-04] MEDS ORDERED: ONDANSETRON PF 4 MG/2 ML VIAL. IV PRN (21:15)
[2018-12-04] MEDS ORDERED: DEXTROSE 50% 25 GM / 50ML DISP.SYRIN. IV PRN (21:15)
--- NOTE | 2018-12-04 21:22 | RAD ---
EXAM: AP View of the chest DATE: 12/04/2018 6:29 PM INDICATION: ER PATIENT. ALTERED MENTAL STATUS. PRIOR XRAY COMPARISON: 11/04/2018, 10/29/2018 FINDINGS/ IMPRESSION: Left IJ vascular catheter tip projects over the right atrium. Mild cardiomegaly. Atherosclerotic calcifications of the tortuous aorta are seen. Bibasilar opacities, favor atelectasis or consolidation. Small left pleural effusion. No pneumothorax. Electronically signed by: Aleksandr Greene MD (12/04/2018 9:18 PM) [facility]
--- NOTE | 2018-12-04 22:09 | PDOC1 ---
History and Physical Date of Admission Date of Admission DATE: 12/04/18 TIME: 22:08 Source Source: Caregiver, Chart review History of Present Illness History of Present Illness Dominik is a 88 year old male admit, seen in ER for acute mental status Confusion noted at home, but worsened during dialysis. They now report he is better, more calm and seems himself. he keeps spitting up, his family describes as "horking" that he is not not vomiting or coughing, but that he likes to try to bring up mucus to spit out and does this regularly. BP reported as 200 systolic then, low at HD, has been fine here no pain, no other complalint Past Medical History Cardiovascular: CHF, HTN, Hyperlipidemia Pulmonary: COPD GI: Constipation Heme/Onc: Anemia NOS Psych: No pertinent hx Musculoskeletal: Osteoarthritis Rheumatologic: Gout Infectious disease: No pertinent hx, Other Renal/: Chronic renal failure Endocrine: Diabetes Past Surgical History Past Surgical History: Appendectomy, Tonsillectomy Family History Family History: Heart Disease Social History Smoke: No ALCOHOL: none Drugs: None Current Problem List Problem List Problems Medical Problems: (1) Altered mental status Status: Acute Current Medications Current Medications Current Medications Sodium Chloride 1,000 ml @ 1,000 mls/hr 1X ONCE IV Last administered on at 19:10; Start 12/04/18 at 18:15; Stop 12/04/18 at 19:14; Status DC Ondansetron HCl (Zofran) 4 mg PRN Q8HRS PRN IV NAUSEA/VOMITING 1ST CHOICE; Start 12/04/18 at 21:15; Stop 12/05/18 at 21:14 Insulin Human Lispro (HumaLOG) 0-5 UNITS TIDWMEALS SQ ; Start 12/05/18 at 08:00 Dextrose (Dextrose 50%-Water Syringe) 12.5 gm PRN Q15MIN PRN IV SEE COMMENTS; Start 12/04/18 at 21:15 Active Scripts Active Bactroban Nasal (Mupirocin Calcium) 1 Gm Oint...g. 1 Gm NS BID 7 Days Culturelle (Lactobacillus Rhamnosus Gg) 1 Each Cap.sprink 1 Cap PO BID 7 Days Toprol Xl (Metoprolol Succinate) 50 Mg Tab.er.24h 50 Mg PO DAILY 30 Days Hydralazine Hcl 25 Mg Tablet 25 Mg PO TID 30 Days Atorvastatin Calcium 10 Mg Tablet 10 Mg PO QHS 30 Days Levaquin (Levofloxacin) 500 Mg Tablet 500 Mg PO QODAY 4 Days Proair Hfa Inhaler (Albuterol Sulfate) 8.5 Gm Hfa.aer.ad 1 Puff INH PRN Q6HRS PRN 14 Days Reported Miralax (Polyethylene Glycol 3350) 17 Gm Powd.pack 1 Pkt PO DAILY Capsaicin 60 Gm Cream..g. 60 Gm TP PRN BID PRN Acetaminophen 500 Mg Tablet 500 Mg PO PRN BID PRN Dulcolax (Bisacodyl) 5 Mg Tablet.dr 5 Mg PO PRN DAILY PRN Ketoconazole 15 Gm Cream..g. 1 Rohit TP BID Clonazepam 0.5 Mg Tablet 0.25 Mg PO PRN BID PRN Allopurinol 100 Mg Tablet 1 Tab PO DAILY Docusate Sodium 100 Mg Capsule 2 Cap PO DAILY Nephro-Woody Tablet (Folic Acid/Vitamin B Comp W-C) 0.8 Mg Tablet 1 Tab PO DAILY Aspirin 81 Mg Tab.chew 1 Tab PO DAILY Omeprazole 20 Mg Capsule. 1 Cap PO BID Allergies Allergies: Coded Allergies: Penicillins (Verified Allergy, Intermediate, 10/29/18) amoxicillin (Verified Allergy, Intermediate, 10/29/18) codeine (Verified Allergy, Intermediate, 10/29/18) pt states he is able to tolerate this medication with his codeine allergy. erythromycin base (Verified Allergy, Intermediate, 10/29/18) sulfamethoxazole (Verified Allergy, Intermediate, 10/29/18) trimethoprim (Verified Allergy, Intermediate, 10/29/18) I S O L A T I O N *CONTACT* (Verified Allergy, Unknown, 10/29/18) mrsa ROS Review of System unable, dementia, family reports he has looked his normal self and has been at his baseline Physical Exam General: Alert, Cooperative, No acute distress HEENT: Atraumatic, PERRLA, EOMI Lungs: Clear to auscultation, Normal air movement Heart: S1S2, RRR, no murmurs Extremities: No edema Skin: No breakdown, Other (very poor toenoil care) Neuro: Normal speech, Other Psych/Mental Status: Other (odd affect, baseline dementia) Vitals Vitals Vital Signs Date Time Temp Pulse Resp B/P (MAP) Pulse Ox O2 Delivery O2 Flow Rate FiO2 3/29/19 17:55 97.8 76 20 140/61 (87) Nasal Cannula 97.8 Labs Labs Laboratory Tests Test 12/04/18 18:02 12/04/18 19:45 12/04/18 20:15 Glucose (Fingerstick) 111 mg/dL (70-99) White Blood Count 9.1 x10^3/uL (4.0-11.0) Red Blood Count 3.48 x10^6/uL (4.30-5.70) Hemoglobin 10.1 g/dL (13.0-17.5) Hematocrit 32.9 % (39.0-53.0) Mean Corpuscular Volume 95 fL (79-100) Mean Corpuscular Hemoglobin 29 pg (25-35) Mean Corpuscular Hemoglobin Concent 31 g/dL (31-37) Red Cell Distribution Width 19.6 % (11.5-14.5) Platelet Count 224 x10^3/uL (140-400) Neutrophils (%) (Auto) 74 % (31-73) Lymphocytes (%) (Auto) 13 % (24-48) Monocytes (%) (Auto) 10 % (0-9) Eosinophils (%) (Auto) 3 % (0-3) Basophils (%) (Auto) 1 % (0-3) Neutrophils # (Auto) 6.8 x10^3uL (1.8-7.7) Lymphocytes # (Auto) 1.2 x10^3/uL (1.0-4.8) Monocytes # (Auto) 0.9 x10^3/uL (0.0-1.1) Eosinophils # (Auto) 0.3 x10^3/uL (0.0-0.7) Basophils # (Auto) 0.1 x10^3/uL (0.0-0.2) Prothrombin Time 12.8 SEC (11.7-14.0) Prothromb Time International Ratio 1.0 (0.8-1.1) Activated Partial Thromboplast Time 25 SEC (24-38) Sodium Level 140 mmol/L (136-145) Potassium Level 3.6 mmol/L (3.5-5.1) Chloride Level 103 mmol/L (98-107) Carbon Dioxide Level 21 mmol/L (21-32) Anion Gap 16 (6-14) Blood Urea Nitrogen 24 mg/dL (8-26) Creatinine 5.3 mg/dL (0.7-1.3) Estimated GFR (Cockcroft-Gault) 12.5 BUN/Creatinine Ratio 5 (6-20) Glucose Level 154 mg/dL (70-99) Lactic Acid Level 1.5 mmol/L (0.4-2.0) Calcium Level 9.8 mg/dL (8.5-10.1) Magnesium Level 2.0 mg/dL (1.8-2.4) Total Bilirubin 0.4 mg/dL (0.2-1.0) Aspartate Amino Transf (AST/SGOT) 11 U/L (15-37) Alanine Aminotransferase (ALT/SGPT) 8 U/L (16-63) Alkaline Phosphatase 65 U/L (46-116) Ammonia 13 mcmol/L (11-34) Creatine Kinase 33 U/L (39-308) Creatine Kinase MB (Mass) 2.9 ng/mL (0.0-3.6) Creatine Kinase MB Relative Index % (0-4) Troponin I Quantitative 0.067 ng/mL (0.000-0.055) Total Protein 8.0 g/dL (6.4-8.2) Albumin 3.1 g/dL (3.4-5.0) Albumin/Globulin Ratio 0.6 (1.0-1.7) Laboratory Tests Test 12/04/18 18:02 12/04/18 19:45 12/04/18 20:15 Glucose (Fingerstick) 111 mg/dL (70-99) White Blood Count 9.1 x10^3/uL (4.0-11.0) Red Blood Count 3.48 x10^6/uL (4.30-5.70) Hemoglobin 10.1 g/dL (13.0-17.5) Hematocrit 32.9 % (39.0-53.0) Mean Corpuscular Volume 95 fL (79-100) Mean Corpuscular Hemoglobin 29 pg (25-35) Mean Corpuscular Hemoglobin Concent 31 g/dL (31-37) Red Cell Distribution Width 19.6 % (11.5-14.5) Platelet Count 224 x10^3/uL (140-400) Neutrophils (%) (Auto) 74 % (31-73) Lymphocytes (%) (Auto) 13 % (24-48) Monocytes (%) (Auto) 10 % (0-9) Eosinophils (%) (Auto) 3 % (0-3) Basophils (%) (Auto) 1 % (0-3) Neutrophils # (Auto) 6.8 x10^3uL (1.8-7.7) Lymphocytes # (Auto) 1.2 x10^3/uL (1.0-4.8) Monocytes # (Auto) 0.9 x10^3/uL (0.0-1.1) Eosinophils # (Auto) 0.3 x10^3/uL (0.0-0.7) Basophils # (Auto) 0.1 x10^3/uL (0.0-0.2) Prothrombin Time 12.8 SEC (11.7-14.0) Prothromb Time International Ratio 1.0 (0.8-1.1) Activated Partial Thromboplast Time 25 SEC (24-38) Sodium Level 140 mmol/L (136-145) Potassium Level 3.6 mmol/L (3.5-5.1) Chloride Level 103 mmol/L (98-107) Carbon Dioxide Level 21 mmol/L (21-32) Anion Gap 16 (6-14) Blood Urea Nitrogen 24 mg/dL (8-26) Creatinine 5.3 mg/dL (0.7-1.3) Estimated GFR (Cockcroft-Gault) 12.5 BUN/Creatinine Ratio 5 (6-20) Glucose Level 154 mg/dL (70-99) Lactic Acid Level 1.5 mmol/L (0.4-2.0) Calcium Level 9.8 mg/dL (8.5-10.1) Magnesium Level 2.0 mg/dL (1.8-2.4) Total Bilirubin 0.4 mg/dL (0.2-1.0) Aspartate Amino Transf (AST/SGOT) 11 U/L (15-37) Alanine Aminotransferase (ALT/SGPT) 8 U/L (16-63) Alkaline Phosphatase 65 U/L (46-116) Ammonia 13 mcmol/L (11-34) Creatine Kinase 33 U/L (39-308) Creatine Kinase MB (Mass) 2.9 ng/mL (0.0-3.6) Creatine Kinase MB Relative Index % (0-4) Troponin I Quantitative 0.067 ng/mL (0.000-0.055) Total Protein 8.0 g/dL (6.4-8.2) Albumin 3.1 g/dL (3.4-5.0) Albumin/Globulin Ratio 0.6 (1.0-1.7) VTE Prophylaxis Ordered VTE Prophylaxis Devices: No VTE Pharmacological Prophylaxi: Yes Assessment/Plan Assessment/Plan acute on chronic encephalopathy ESRD weakness and debility, not ambulatory for years anemia of CKD obs, try to DC KENNY Alfonso MD Dec 04, 2018 22:09
[2018-12-04 23:00] VITALS: BP 172/80
[2018-12-04] MEDS ORDERED: TRAM50TA PO (23:37)
[2018-12-05 03:00] VITALS: BP 170/82
[2018-12-05 07:00] VITALS: BP 168/60
[2018-12-05] MEDS: INSULIN LISPRO 300 UNITS/3 ML INSULN.PEN. SQ SCH ×3 (08:00→17:00)
--- NOTE | 2018-12-05 10:00 | EKG ---
[facility] [address] [place] [address] Test Date: 2018-12-04 Test Time: 18:02:16 Pat Name: ADRIENNE PHILLIPS Department: Room: 506 1 Gender: M Puller Machine: : [id number] Requested By: BOBBY EMERY Order Number: [id number] Reading MD: Damian Li MD Measurements Intervals [place] Rate: 78 P: 90 CT: 196 QRS: -37 QRSD: 114 T: 28 QT: 384 QTc: 441 Interpretive Statements SINUS RHYTHM ABNORMAL LEFT AXIS DEVIATION QRS(T) CONTOUR ABNORMALITY CONSISTENT WITH INFERIOR INFARCT PROBABLY OLD ABNORMAL ECG CONSIDER PRIOR ANTEROSEPTAL INFARCT Electronically Signed On 12-07-2018 14:26:36 CDT by Damian Li MD
[2018-12-05] MEDS ORDERED: ALBUTEROL SULFATE 2.5 MG/3 ML NEBU. INH PRN (10:30)
[2018-12-05] MEDS ORDERED: traMADol 50 MG TABLET PO PRN (10:30)
[2018-12-05] MEDS ORDERED: clonazePAM 0.5 MG TABLET PO PRN (10:30)
[2018-12-05] MEDS ORDERED: BISACODYL 5 MG TABLET.DR. PO PRN (10:30)
--- NOTE | 2018-12-05 10:45 | SNU/HH DC ---
DISCHARGE WITH HOME HEALTH DISCHARGE INFORMATION: Discharge Date: Dec 05, 2018 Final Diagnosis: Problems Medical Problems: (1) Altered mental status Status: Acute Condition on Discharge: Stable CODE STATUS: Code Status: Full HOME HEALTH: Face to Face: I certify this patient is under my care and that I, or a nurse practitioner or physician's janitorial assistant working with me, had a face to face encounter that meets the physician face to face encounter requirements with this patient on []. Physical Therapy For: Evalulation/Treatment Occupational Therapy For: Evaluation/Treatment POST DISCHARGE ORDERS: Activity Instructions for Disc: Activity as tolerated Weight Bearing Status after Di: Non weight bearing Wound/Incision Care: Keep wound/cast CDI, Keep wound elevated, Change dressing Other wound/incision instructi: wound to left heel CHECKS AFTER DISCHARGE: Checks after discharge: Check blood press - daily, Check blood sugar, ac/hs, Weigh Yourself Daily FOLLOW-UP: PCP to follow with Home Health yes Follow up with: primary care TREATMENT/EQUIPMENT ORDERS: Adaptive Equipment Issued: Grab bars Discharge Respiratory Equipmen: Oxygen CERTIFICATION STATEMENT: Certification Statement: Certification Statement: Based on the above finding, I certify that this patient is confined to the home and needs intermittent longterm care, physical therapy and/or speech therapy, or continues to need occupational therapy.~ This patient is under my care, and I have initiated the establishment of the plan of care.~ This patient will be followed by myself or a community physician who will periodically review the plan of care. Home Meds Active Scripts Metoprolol Succinate (Toprol Xl) 50 Mg Tab.er.24h, 50 MG PO DAILY for HTN for 30 Days, #30 TAB.SR Prov:BARNEY GALEAS MD 11/03/18 Hydralazine Hcl (HYDRALAZINE HCL) 25 Mg Tablet, 25 MG PO TID for HTN for 30 Days , #90 TAB Prov:BARNEY GALEAS MD 11/03/18 Atorvastatin Calcium (ATORVASTATIN CALCIUM) 10 Mg Tablet, 10 MG PO QHS for dyslipidemia for 30 Days, #30 TAB Prov:BARNEY GALEAS MD 11/03/18 Albuterol Sulfate (PROAIR HFA INHALER) 8.5 Gm Hfa.aer.ad, 1 PUFF INH PRN Q6HRS PRN for SHORTNESS OF BREATH for 14 Days, INHALER 0 Refills Prov:NAYLA ESCALANTE MD 10/23/18 Reported Medications Tramadol Hcl (TRAMADOL HCL) 50 Mg Tablet, 50 MG PO DAILY PRN for PAIN, TAB 0 Refills 12/04/18 Polyethylene Glycol 3350 (MIRALAX) 17 Gm Powd.pack, 1 PKT PO DAILY, PKT 12/01/17 Capsaicin (CAPSAICIN) 60 Gm Cream..g., 60 GM TP PRN BID PRN for PAIN, EACH 12/01/17 Acetaminophen (ACETAMINOPHEN) 500 Mg Tablet, 500 MG PO PRN BID PRN for PAIN, TAB 12/01/17 Bisacodyl (DULCOLAX) 5 Mg Tablet.dr, 5 MG PO PRN DAILY PRN for CONSTIPATION, TAB 0 Refills 12/26/15 Ketoconazole (KETOCONAZOLE) 15 Gm Cream..g., 1 ZOIE TP BID, #60 GM 1 Refill 12/26/15 Clonazepam (CLONAZEPAM) 0.5 Mg Tablet, 0.25 MG PO PRN BID PRN for ANXIETY / AGITATION, #60 TAB 1 Refill 12/26/15 Allopurinol (ALLOPURINOL) 100 Mg Tablet, 1 TAB PO DAILY, #30 TAB 5 Refills 12/26/15 Docusate Sodium (DOCUSATE SODIUM) 100 Mg Capsule, 2 CAP PO DAILY, #30 CAP 01/02/15 Folic Acid/Vitamin B Comp W-C (NEPHRO-KATIE TABLET) 0.8 Mg Tablet, 1 TAB PO DAILY , #30 TAB 5 Refills 01/02/15 Aspirin (ASPIRIN) 81 Mg Tab.chew, 1 TAB PO DAILY, #30 TAB 3 Refills 01/02/15 Omeprazole (OMEPRAZOLE) 20 Mg Capsule., 1 CAP PO BID, #30 CAP 5 Refills 01/02/15 KENNY YOUSSEF MD Dec 05, 2018 10:45
[2018-12-05 11:00] VITALS: BP 159/57
[2018-12-05] MEDS: METOPROLOL SUCC 24HR ER 50 MG TAB.ER.24H. PO SCH ×2 (11:00→15:23)
[2018-12-05] MEDS: ASPIRIN CHEWABLE 81 MG TABLET. PO SCH ×2 (11:00→15:23)
[2018-12-05] MEDS: FOLIC/VIT B COMP W-C (RENAL) TABLET. PO SCH ×2 (11:00→15:23)
[2018-12-05] MEDS ORDERED: DOCUSATE SODIUM 100 MG CAPSULE. PO SCH (11:00)
[2018-12-05] MEDS: ALLOPURINOL 100 MG TABLET. PO SCH ×2 (11:00→15:23)
[2018-12-05] MEDS: POLYETHYLENE GLYCOL 3350 17 GM PACKET. PO SCH ×2 (11:00→15:23)
--- NOTE | 2018-12-05 12:14 | NUR ---
Pt refused d/c pictures. Family states they were just taken yesterday when dressings were changed. States that it is too uncomfortable to keep messing with it since there will be no change in wounds from 1 day to the other.
--- NOTE | 2018-12-05 13:14 | PDOC3 ---
Discharge Summary Visit Information Date of Admission: Dec 04, 2018 Date of Discharge: Dec 05, 2018 Final Diagnosis acute on chronic encephalopathy ESRD weakness and debility, not ambulatory for years anemia of CKD Problems Medical Problems: (1) Altered mental status Status: Acute Brief Hospital Course Allergies Allergies Coded Allergies Type Severity Reaction Last Updated Verified Penicillins Allergy Intermediate 10/29/18 Yes amoxicillin Allergy Intermediate 10/29/18 Yes codeine Allergy Intermediate 10/29/18 Yes erythromycin base Allergy Intermediate 10/29/18 Yes sulfamethoxazole Allergy Intermediate 10/29/18 Yes trimethoprim Allergy Intermediate 10/29/18 Yes I S O L A T I O N *CONTACT* Allergy Unknown 10/29/18 Yes Vital Signs Vital Signs Date Time Temp Pulse Resp B/P (MAP) Pulse Ox O2 Delivery O2 Flow Rate FiO2 12/05/18 11:00 97.8 77 18 159/57 (91) 100 Nasal Cannula 2.0 97.8 Lab Results Laboratory Tests Test 12/04/18 18:02 12/04/18 19:45 12/04/18 20:15 12/05/18 00:40 Glucose (Fingerstick) 111 mg/dL (70-99) White Blood Count 9.1 x10^3/uL (4.0-11.0) Red Blood Count 3.48 x10^6/uL (4.30-5.70) Hemoglobin 10.1 g/dL (13.0-17.5) Hematocrit 32.9 % (39.0-53.0) Mean Corpuscular Volume 95 fL (79-100) Mean Corpuscular Hemoglobin 29 pg (25-35) Mean Corpuscular Hemoglobin Concent 31 g/dL (31-37) Red Cell Distribution Width 19.6 % (11.5-14.5) Platelet Count 224 x10^3/uL (140-400) Neutrophils (%) (Auto) 74 % (31-73) Lymphocytes (%) (Auto) 13 % (24-48) Monocytes (%) (Auto) 10 % (0-9) Eosinophils (%) (Auto) 3 % (0-3) Basophils (%) (Auto) 1 % (0-3) Neutrophils # (Auto) 6.8 x10^3uL (1.8-7.7) Lymphocytes # (Auto) 1.2 x10^3/uL (1.0-4.8) Monocytes # (Auto) 0.9 x10^3/uL (0.0-1.1) Eosinophils # (Auto) 0.3 x10^3/uL (0.0-0.7) Basophils # (Auto) 0.1 x10^3/uL (0.0-0.2) Prothrombin Time 12.8 SEC (11.7-14.0) Prothromb Time International Ratio 1.0 (0.8-1.1) Activated Partial Thromboplast Time 25 SEC (24-38) Sodium Level 140 mmol/L (136-145) Potassium Level 3.6 mmol/L (3.5-5.1) Chloride Level 103 mmol/L (98-107) Carbon Dioxide Level 21 mmol/L (21-32) Anion Gap 16 (6-14) Blood Urea Nitrogen 24 mg/dL (8-26) Creatinine 5.3 mg/dL (0.7-1.3) Estimated GFR (Cockcroft-Gault) 12.5 BUN/Creatinine Ratio 5 (6-20) Glucose Level 154 mg/dL (70-99) Lactic Acid Level 1.5 mmol/L (0.4-2.0) Calcium Level 9.8 mg/dL (8.5-10.1) Magnesium Level 2.0 mg/dL (1.8-2.4) Total Bilirubin 0.4 mg/dL (0.2-1.0) Aspartate Amino Transf (AST/SGOT) 11 U/L (15-37) Alanine Aminotransferase (ALT/SGPT) 8 U/L (16-63) Alkaline Phosphatase 65 U/L (46-116) Ammonia 13 mcmol/L (11-34) Creatine Kinase 33 U/L (39-308) Creatine Kinase MB (Mass) 2.9 ng/mL (0.0-3.6) Creatine Kinase MB Relative Index % (0-4) Troponin I Quantitative 0.067 ng/mL (0.000-0.055) 0.063 ng/mL (0.000-0.055) Total Protein 8.0 g/dL (6.4-8.2) Albumin 3.1 g/dL (3.4-5.0) Albumin/Globulin Ratio 0.6 (1.0-1.7) Test 12/05/18 03:03 12/05/18 07:16 12/05/18 11:41 Troponin I Quantitative 0.074 ng/mL (0.000-0.055) Glucose (Fingerstick) 107 mg/dL (70-99) 184 mg/dL (70-99) Laboratory Tests Test 12/04/18 18:02 12/04/18 19:45 12/04/18 20:15 12/05/18 00:40 Glucose (Fingerstick) 111 mg/dL (70-99) White Blood Count 9.1 x10^3/uL (4.0-11.0) Red Blood Count 3.48 x10^6/uL (4.30-5.70) Hemoglobin 10.1 g/dL (13.0-17.5) Hematocrit 32.9 % (39.0-53.0) Mean Corpuscular Volume 95 fL (79-100) Mean Corpuscular Hemoglobin 29 pg (25-35) Mean Corpuscular Hemoglobin Concent 31 g/dL (31-37) Red Cell Distribution Width 19.6 % (11.5-14.5) Platelet Count 224 x10^3/uL (140-400) Neutrophils (%) (Auto) 74 % (31-73) Lymphocytes (%) (Auto) 13 % (24-48) Monocytes (%) (Auto) 10 % (0-9) Eosinophils (%) (Auto) 3 % (0-3) Basophils (%) (Auto) 1 % (0-3) Neutrophils # (Auto) 6.8 x10^3uL (1.8-7.7) Lymphocytes # (Auto) 1.2 x10^3/uL (1.0-4.8) Monocytes # (Auto) 0.9 x10^3/uL (0.0-1.1) Eosinophils # (Auto) 0.3 x10^3/uL (0.0-0.7) Basophils # (Auto) 0.1 x10^3/uL (0.0-0.2) Prothrombin Time 12.8 SEC (11.7-14.0) Prothromb Time International Ratio 1.0 (0.8-1.1) Activated Partial Thromboplast Time 25 SEC (24-38) Sodium Level 140 mmol/L (136-145) Potassium Level 3.6 mmol/L (3.5-5.1) Chloride Level 103 mmol/L (98-107) Carbon Dioxide Level 21 mmol/L (21-32) Anion Gap 16 (6-14) Blood Urea Nitrogen 24 mg/dL (8-26) Creatinine 5.3 mg/dL (0.7-1.3) Estimated GFR (Cockcroft-Gault) 12.5 BUN/Creatinine Ratio 5 (6-20) Glucose Level 154 mg/dL (70-99) Lactic Acid Level 1.5 mmol/L (0.4-2.0) Calcium Level 9.8 mg/dL (8.5-10.1) Magnesium Level 2.0 mg/dL (1.8-2.4) Total Bilirubin 0.4 mg/dL (0.2-1.0) Aspartate Amino Transf (AST/SGOT) 11 U/L (15-37) Alanine Aminotransferase (ALT/SGPT) 8 U/L (16-63) Alkaline Phosphatase 65 U/L (46-116) Ammonia 13 mcmol/L (11-34) Creatine Kinase 33 U/L (39-308) Creatine Kinase MB (Mass) 2.9 ng/mL (0.0-3.6) Creatine Kinase MB Relative Index % (0-4) Troponin I Quantitative 0.067 ng/mL (0.000-0.055) 0.063 ng/mL (0.000-0.055) Total Protein 8.0 g/dL (6.4-8.2) Albumin 3.1 g/dL (3.4-5.0) Albumin/Globulin Ratio 0.6 (1.0-1.7) Test 12/05/18 03:03 12/05/18 07:16 12/05/18 11:41 Troponin I Quantitative 0.074 ng/mL (0.000-0.055) Glucose (Fingerstick) 107 mg/dL (70-99) 184 mg/dL (70-99) Brief Hospital Course Mr. Wong is a 88 old male, that got confused and lethargic at dialysis. taken to ER, his family arrived, and in ER thought he had improved to baseline, but had increased mucus from nose. Better after obs, more alert, family thought at baseline, OK withhim going home code status discussed with , still full code Discharge Information Condition at Discharge: Improved Follow Up: Weeks Disposition/Orders: D/C to Home w/ HH Scheduled Allopurinol (Allopurinol) 100 Mg Tablet, 1 TAB PO DAILY, #30 Ref 5 (Reported) Entered as Reported by: Odette Berkowitz on 12/26/15 0234 Last Action: Continued on 12/05/18 1028 by KENNY YOUSSEF Aspirin (Aspirin) 81 Mg Tab.chew, 1 TAB PO DAILY, #30 Ref 3 (Reported) Entered as Reported by: LUANA WILLIAMSON on 01/02/15 1635 Last Action: Continued on 12/05/18 1028 by KENNY YOUSSEF Atorvastatin Calcium (Atorvastatin Calcium) 10 Mg Tablet, 10 MG PO QHS for dyslipidemia for 30 Days, #30 Prescribed by: BARNEY GALEAS MD on 11/03/18 1346 Last Action: Continued on 12/05/18 1028 by KENNY YOUSSEF Docusate Sodium (Docusate Sodium) 100 Mg Capsule, 2 CAP PO DAILY, #30 (Reported) Entered as Reported by: LUANA WILLIAMSON on 01/02/15 1635 Last Action: Continued on 12/05/18 1028 by KENNY YOUSSEF Folic Acid/Vitamin B Comp W-C (Nephro-Woody Tablet) 0.8 Mg Tablet, 1 TAB PO DAILY , #30 Ref 5 (Reported) Entered as Reported by: LUANA WILLIAMSON on 01/02/15 1635 Last Action: Continued on 12/05/18 1028 by KENNY YOUSSEF Hydralazine Hcl (Hydralazine Hcl) 25 Mg Tablet, 25 MG PO TID for HTN for 30 Days , #90 Prescribed by: BARNEY GALEAS MD on 11/03/18 1346 Last Action: HELD on 12/05/18 1028 by KENNY YOUSSEF Ketoconazole (Ketoconazole) 15 Gm Cream..g., 1 ZOIE TP BID, #60 Ref 1 (Reported) Entered as Reported by: Odette Berkowitz on 12/26/15 0245 Last Action: Continued on 12/05/18 1028 by KENNY YOUSSEF Metoprolol Succinate (Toprol Xl) 50 Mg Tab.er.24h, 50 MG PO DAILY for HTN for 30 Days, #30 Prescribed by: BARNEY GALEAS MD on 11/03/18 1346 Last Action: Continued on 12/05/18 1028 by KENNY YOUSSEF Omeprazole (Omeprazole) 20 Mg Capsule.dr, 1 CAP PO BID, #30 Ref 5 (Reported) Entered as Reported by: LUANA WILLIAMSON on 01/02/15 1635 Last Action: HELD on 12/05/18 1028 by KENNY YOUSSEF Polyethylene Glycol 3350 (Miralax) 17 Gm Powd.pack, 1 PKT PO DAILY, (Reported) Entered as Reported by: MASON CLARKE on 12/01/17228 Last Action: Converted on 12/05/18 1028 by KENNY YOUSSEF Scheduled PRN Acetaminophen (Acetaminophen) 500 Mg Tablet, 500 MG PO PRN BID PRN for PAIN, ( Reported) Entered as Reported by: MASON CLARKE on 12/01/17228 Last Action: HELD on 12/05/188 by KENNY YOUSSEF Albuterol Sulfate (Proair Hfa Inhaler) 8.5 Gm Hfa.aer.ad, 1 PUFF INH PRN Q6HRS PRN for SHORTNESS OF BREATH for 14 Days, Ref 0 Prescribed by: NAYLA ESCALANTE on 10/23/18 1011 Last Action: Continued on 12/05/188 by KENNY YOUSSEF Bisacodyl (Dulcolax) 5 Mg Tablet.dr, 5 MG PO PRN DAILY PRN for CONSTIPATION, Ref 0 (Reported) Entered as Reported by: Odette Berkowitz on 12/26/15 0300 Last Action: Continued on 12/05/188 by KENNY YOUSSEF Capsaicin (Capsaicin) 60 Gm Cream..g., 60 GM TP PRN BID PRN for PAIN, (Reported) Entered as Reported by: MASON CLARKE on 12/01/17228 Last Action: HELD on 12/05/18 1028 by KENNY YOUSSEF Clonazepam (Clonazepam) 0.5 Mg Tablet, 0.25 MG PO PRN BID PRN for ANXIETY / AGITATION, #60 Ref 1 (Reported) Entered as Reported by: Odette Berkowitz on 12/26/15 0238 Last Action: Continued on 12/05/188 by KENNY YOUSSEF Tramadol Hcl (Tramadol Hcl) 50 Mg Tablet, 50 MG PO DAILY PRN for PAIN, Ref 0 ( Reported) Entered as Reported by: BIJU CRUZ RN on 12/04/18 2337 Last Action: Continued on 12/05/18 1028 by KENNY PACHECO MD Dec 05, 2018 13:14
[2018-12-05 15:00] VITALS: BP 174/100
[2018-12-05 15:23] VITALS: BP 159/57
--- NOTE | 2018-12-05 17:31 | NUR ---
Discharge Note: ADRIENNE PHILLIPS Discharge instructions and discharge home medications reviewed with Patient and a copy given. All questions have been answered and understanding verbalized. The following instructions and handouts were given: hypotension, hypertension Discontinued lines and drains: peripheral iv. Patient discharged to Home or Self Care with Self via Stretcher
[2018-12-05] MEDS ORDERED: KETOCONAZOLE 2% TOPICAL CREAM 15GM TUBE. TP SCH (21:00)
[2018-12-05] MEDS ORDERED: ATORVASTATIN CALCIUM 10 MG TABLET. PO SCH (21:00)
--- NOTE | 2018-12-08 08:49 | NUR ---
Post dc note: SW received a phone call from Faiza from [facility], phone: [phone] who reported they are not able to take pt as they do not provide service on the [place] side. They reported they only provided nursing for pt through [facility]. Discussed with Beth from [facility] who will be setting up [facility] for pt.
== END 2018-12-05 17:33 | disposition home health service (06) | DRG 70 ==
LOC: ER 17:54 → 5 NORTH 20:58
PROVIDERS: ADMIT Internal Medicine; ATTEND Internal Medicine
DX: G93.40 Encephalopathy, unspecified (principal); N18.6 End stage renal disease; I13.2 Hypertensive heart and chronic kidney disease with heart failure and with stage 5 chronic kidney disease, or end stage renal disease; D63.1 Anemia in chronic kidney disease; E11.22 Type 2 diabetes mellitus with diabetic chronic kidney disease; E78.5 Hyperlipidemia, unspecified; I50.9 Heart failure, unspecified; J44.9 Chronic obstructive pulmonary disease, unspecified; E21.3 Hyperparathyroidism, unspecified; M10.9 Gout, unspecified; M19.90 Unspecified osteoarthritis, unspecified site; Z74.01 Bed confinement status; Z86.73 Personal history of transient ischemic attack (TIA), and cerebral infarction without residual deficits; Z90.49 Acquired absence of other specified parts of digestive tract; Z99.2 Dependence on renal dialysis; Z88.0 Allergy status to penicillin; Z88.2 Allergy status to sulfonamides; Z88.8 Allergy status to other drugs, medicaments and biological substances; Z79.899 Other long term (current) drug therapy
CPT/HCPCS: 36415; 70450; 71045; 80053; 82140; 82553; 82962; 83605; 83735; 84484; 85025; 85610; 85730; 87641; 93005; 96360; 96361; J1815; J7030; 99285-25

== ENCOUNTER 2020-10-15 23:57 | Emergency (ER) | payer MEDICARE ==
[~2020-10-15] VITALS: Ht 170.2 cm; Wt 77.1 kg
[~2020-10-15 23:57] MED LIST changes: +AMLO-187 PO; -AMLO10TA8 PO; +CALCIUM CHLORIDE 1,000 MG/10 ML DISP.SYRIN ONE; +CLON-77 PO; -CLON0.5T11 PO; +EPINEPHrine SYRINGE 1 MG/10 ML SYRINGE ONE; -OMEP20CA10 PO; +OMEP20CA16 PO; +SODIUM BICARB ADULT 8.4% 50 MEQ/50 ML DISP.SYRIN. ONE; +TRAM50TA PO; -VITS56.7 TP; +VITS56.72 TP
--- NOTE | 2020-10-16 00:37 | PHYS DOC ---
Past Medical History Past Medical History: CHF, COPD, Diabetes-Type II, Hypertension, Renal Disease, Renal Failure, TIA Additional Past Medical Histor: on dialysis, HYPERPARATHYROID Past Surgical History: Appendectomy, Tonsillectomy Additional Past Surgical Histo: BILATERAL FOOT SURGERY, GALL STONE REMOVAL; dialysis catheter LEFT CHEST Smoking Status: Never Smoker Alcohol Use: None Drug Use: None General Adult EDM: Chief Complaint: CPR/FULL ARREST HPI: HPI: 89-year-old AA male past medical history significant for ESRD, CHF, COPD, hypertension, hyperlipidemia, GERD with recent AKA 1 week ago at the [facility] and tunneled dialysis catheter placed to right subclavian 2 weeks ago, presents to the ED brought in by EMS found unconscious, asystole and in cardiac arrest, suspected unwitnessed downtime 20 to 30 minutes. ACLS protocol started, glucose was 60. Patient was given 6 rounds of epi and 1 amp of bicarb. LMA placed with left humeral IO. Unable to obtain end-tidal CO2. D10 given prior to ED arrival. EMS did call with pre-notification to terminate efforts with glucose 60, no IV access obtained and unable to place definitive airway. Potential 20-30 minutes since last seen at baseline. Family requesting full code (I was not aware of pts' complicated medical history). I recommended IM glucagon 1mg and ed transfer. Review of Systems: Review of Systems: Review of systems unobtainable due to patient's medical condition, cardiac arrest Heart Score: Risk Factors: Risk Factors: DM, Current or recent (<one month) smoker, HTN, HLP, family history of CAD, obesity. Risk Scores: Score 0 - 3: 2.5% MACE over next 6 weeks - Discharge Home Score 4 - 6: 20.3% MACE over next 6 weeks - Admit for Clinical Observation Score 7 - 10: 72.7% MACE over next 6 weeks - Early Invasive Strategies Allergies: Allergies: Allergies Coded Allergies Type Severity Reaction Last Updated Verified Penicillins Allergy Intermediate 10/29/18 Yes amoxicillin Allergy Intermediate 10/29/18 Yes codeine Allergy Intermediate 10/29/18 Yes erythromycin base Allergy Intermediate 10/29/18 Yes sulfamethoxazole Allergy Intermediate 10/29/18 Yes trimethoprim Allergy Intermediate 10/29/18 Yes I S O L A T I O N *CONTACT* Allergy Unknown 10/29/18 Yes Physical Exam: PE: Constitutional: unresponsive/no signs of life but warm to the touch over abdomen/back HENT: Normocephalic, atraumatic, dry mucous membranes Eyes: conjunctiva normal, no discharge, nonreactive pupils Neck: +jvd, yellow emesis over neck Cardiovascular: asystole on monitor, no pulses, right upper chest tunnel HD catheter Lungs & Thorax: Bilateral breaths sounds with LMA/ambu bag Abdomen: soft, no tenderness, umbilical hernia Skin: dry, edematous extremities and abdomen/third spacing Back: No midline stepoffs, low to mod grade sacral ulcer Extremities: Left AKA with elizabeth, no crepitus or induration Neurologic: GCS 3, comatose rectal: temp 104.1, no bleeding Current Patient Data: Labs: Laboratory Tests Test 10/16/20 00:15 Glucose (Fingerstick) 14 mg/dL (70-99) *L EKG: EKG: [] Radiology/Procedures: Radiology/Procedures: Indication: Respiratory failure Consent: Unable to give consent due to emergent nature. Medications Used: see nursing note Procedure: The patient was placed in the appropriate position. Intubation was performed with video laryngoscopy, glide scope, 7.5 ETT, 24 at the lip (I assisted ems provider). Secured with RT device. Initial confirmation of placement included yellow color change w/colorimetry, bilateral breath sounds, tube fogging, adequate chest rise, adequate pulse oximetry reading, no gastric sounds. Complications: none. Intraosseous access placed in proximal right tibia -I supervised RN. Course & Med Decision Making: Course & Med Decision Making Pertinent Labs and Imaging studies reviewed. (See chart for details) Active ACLS protocol upon ED arrival and resumed. Calcium, bicarb and epinephrine given in ED. Definitive airway secured with bilateral breath sounds. R tibial IO access obtained. POCUS performed on multiple rhythm checks w/cardiac standstill. Pt with unwitnessed arrest approximately 20 to 30 minutes. OHCA approximately 38 minutes. ACLS x 15minutes in ed. Given potential downtime of 73 minutes, esrd, chf and cardiac standstill on pocus, time of 10/16/20 0012 (no objections from staff). After pt rectal temp was 104.1 and finger glucose was 14. Suspect septic shock with hypoglycemia (heart not circulating medications) and hypoxic compensation/respiratory arrest, vs hyperkalemia in the setting of esrd/chf. Patient's Nirali, son girlfrienanabelle and daughter Rachel were notified. All their questions were answered. Please see spray machine loader for specific details regarding specific timing and dosages of medications given during resuscitation. Timing listed above are approximations. Critical Care: Authorized and Performed by: Faiza Linton DO Total critical care time: approximately 30 minutes Due to a high probability of clinically significant, life threatening deterioration, the patient required my highest level of preparedness to intervene emergently and I personally spent this critical care time directly and personally managing the patient. This critical care time included obtaining a history; examining the patient; pulse oximetry; ventilator management if necessary; ordering and review of studies; arranging urgent treatment with development of a management plan; evaluation of patient's response to treatment; frequent reassessment; discussion with patient/family; and, discussions with other providers. This critical care time was performed to assess and manage the high probability of imminent, life-threatening deterioration that could result in multi-organ failure. It was exclusive of separately billable procedures and treating other patients and teaching time. Please see MDM section and the rest of the note for further information on patient assessment and treatment. Dragon Disclaimer: Dragon Disclaimer: This electronic medical record was generated, in whole or in part, using a voice recognition dictation system. Departure Departure Impression: Primary Impression: Cardiac arrest Additional Impressions: Hypoglycemia Fever Disposition: 20 Condition: Referrals: UNKNOWN PCP NAME (PCP) FAIZA LINTON DO Oct 16, 2020 00:37
== END 2020-10-16 00:12 ==
LOC: ER 23:57
DX: I46.9 Cardiac arrest, cause unspecified (principal); R50.9 Fever, unspecified; E11.649 Type 2 diabetes mellitus with hypoglycemia without coma; I11.0 Hypertensive heart disease with heart failure; I50.9 Heart failure, unspecified; J44.9 Chronic obstructive pulmonary disease, unspecified; N19 Unspecified kidney failure; Z90.89 Acquired absence of other organs; Z86.73 Personal history of transient ischemic attack (TIA), and cerebral infarction without residual deficits; Z98.890 Other specified postprocedural states; Z88.0 Allergy status to penicillin; Z88.1 Allergy status to other antibiotic agents; Z88.5 Allergy status to narcotic agent
CPT/HCPCS: 31500; 82962; 99291; J0171; J3490